=== PATIENT | female | born 1945 | race Caucasian/White ===

== ENCOUNTER → 2021-10-25 14:28 | Outpatient (CLI) | payer OTHER, SELFPAY ==
[2021-10-25 15:15] LABS: Appearance Urine UA CLEAR; Bilirubin Urine UA NEGATIVE (NEGATIVE); Color Urine UA YELLOW; Glucose Urine UA 2+ g/dL (Negative); Ketones Urine UA 1+ (NEGATIVE); Leukocyte Esterase Urine UA TRACE (NEGATIVE); Nitrite Urine UA POSITIVE (Negative); Occult Blood Urine UA NEGATIVE (Negative); Protein Urine UA NEGATIVE (Negative); Urobilinogen Urine UA 0.2 E.U./dL (0.2)
[2021-10-25 15:20] LABS: Amorphous Sediment Urine 1+; Bacteria Urine Many (>30); Culture Indicated Urine Specimen Cultured; RBC Urine 0-1/HPF (0-5/HPF); Squamous Epithelial Cell Urine 0-1 /HPF (0-5/HPF); WBC Urine 30-100/HPF (0-5/HPF); pH Urine UA 5.5 (4.5-8.0)
[2021-10-25 15:34] LABS: Creatinine Urine Random 37.4 mg/dL
[2021-10-25 15:41] LABS: Microalbumi Creatinin Ratio Ur 93.5 ug/mg CR (<30); Microalbumin Urine Random 3.5 mg/dL (0-1.6)
[2021-10-25 16:13] LABS: Add Manual Diff / Slide Review NO; Basophils Absolute Auto 100 /uL (0-100); Basophils Percent Auto 1.1 % (0-2); Eosinophils Absolute Auto 100 /uL (0-450); Eosinophils Percent Auto 1.1 % (2-4); Hematocrit 44.4 % (36-46); Lymphocytes Absolute Auto 1400 /uL (1100-4500); Lymphocytes Percent Auto 22.8 % (25-40); Mean Corpuscular HGB Conc 33.8 % (30-36); Mean Corpuscular Hemoglobin 29.7 PG (26-34); Mean Corpuscular Volume 87.9 fL (80-100); Monocytes Absolute Auto 500 /uL (0-900); Monocytes Percent Auto 7.4 % (3-14); Neutrophils Absolute Auto 4100 /uL (1500-7000); Neutrophils Percent Auto 67.6 % (50-75); Platelet Count 198 X10^3/uL (150-400); Red Blood Cell Count 5.05 X10^6/uL (4.0-5.2); Red Cell Distribution Width 14.4 % (11.6-14.8); White Blood Cell Count 6.1 X10^3/uL (4.5-11.0)
[2021-10-25 16:21] LABS: Hemoglobin A1C% w Est Avg Glu > 14.0 % (4.0-6.0)
[2021-10-25 16:44] LABS: Alanine Aminotransferase 49 IU/L (<35); Albumin 4.3 g/dL (3.5-5.0); Albumin Globulin Ratio 1.4 (1.0-2.8); Alkaline Phosphatase 151 U/L (38-126); Aspartate Aminotransferase 42 IU/L (14-36); BUN Creatinine Ratio 30.4 (6-22); Bilirubin Total 0.7 mg/dL (0.2-1.3); Blood Urea Nitrogen 21 mg/dL (7-17); Calcium 9.1 mg/dL (8.4-10.2); Carbon Dioxide 31 mmol/L (22-32); Chloride 92 mmol/L (98-107); Cholesterol 265 mg/dL (140-199); Estimated Glomerular Filt Rate > 60 mL/min (>60); Glucose 469 mg/dL (80-110); HDL Cholesterol 65 mg/dL (40-60); HEMOLYSIS < 15 (0-50); LDL Cholesterol Calculated 157 mg/dL (<100); Potassium 4.8 mmol/L (3.4-5.1); Sodium 132 mmol/L (137-145); Total Protein 7.3 g/dL (6.3-8.2); Triglycerides 217 mg/dL (35-150)
[2021-10-25 17:15] LABS: TSH w/ Reflex to FT4 0.76 uIU/mL (0.47-4.68)
[2021-10-28 16:44] LABS: Hep C Virus Ab w/Reflex Quant NEGATIVE s/c (NEGATIVE); Hepatitis B Surface Antigen NEGATIVE s/c (NEGATIVE)
== END ==
PROVIDERS: PCP Pediatrics; Referring Provider Pediatrics; Visit Provider Pediatrics
DX: E11.9 Type 2 diabetes mellitus without complications (principal); J44.9 Chronic obstructive pulmonary disease, unspecified; L43.9 Lichen planus, unspecified
CPT/HCPCS: 36415; 80053; 80061; 81001; 82043; 82570; 83036; 84443; 85025; 86803; 87077; 87086; 87186; 87340

== ENCOUNTER → 2021-11-20 15:28 | Outpatient (CLI) | payer OTHER, SELFPAY ==
--- NOTE | 2021-11-20 15:29 | DI.RAD.S_ITS ---
PROCEDURE: XR CHEST 2V INDICATIONS: SHORTNESS OF BREATH, COPD TECHNIQUE: 2 views of the chest were acquired. COMPARISON: None. FINDINGS: Surgical changes and devices: None. Lungs and pleura: Pulmonary venous congestion. Small right pleural effusion with subpulmonic component. No hernesto pulmonary edema. Mediastinum: Mediastinal contours are normal. Moderate cardiomegaly. Bones and chest wall: No suspicious bony abnormalities. Soft tissues appear unremarkable. IMPRESSION: Mild congestive heart failure exacerbation. Dictated by: Stuart Belle M.D. on 11/20/2021 at 17:06 Approved by: Stuart Belle M.D. on 11/20/2021 at 17:08
== END ==
PROVIDERS: PCP Pediatrics; Referring Provider Pediatrics; Visit Provider Pediatrics
DX: I50.9 Heart failure, unspecified (principal); J44.9 Chronic obstructive pulmonary disease, unspecified
CPT/HCPCS: 71046; 93010

== ENCOUNTER 2021-11-20 21:53 | Inpatient (IN) | payer OTHER, SELFPAY ==
[2021-11-20 21:55] VITALS: BP 190/72; PULSE 137; RESP 24; TEMP 36.6; O2SAT 98; BMI 36.7
[2021-11-20] MEDS: ALBUTEROL 2.5 MG/3 ML NEB (ADULT) INH (22:21)
[2021-11-20] MEDS: ALBUTEROL/IPRATROPIUM 3 ML AMPUL INH (22:21)
[2021-11-20 22:22] VITALS: O2SAT 85
[2021-11-20 22:25] VITALS: O2SAT 94
[2021-11-20 22:28] LABS: Alanine Aminotransferase 112 IU/L (<35); Albumin 4.5 g/dL (3.5-5.0); Albumin Globulin Ratio 1.4 (1.0-2.8); Alkaline Phosphatase 178 U/L (38-126); Aspartate Aminotransferase 137 IU/L (14-36); BUN Creatinine Ratio 23.8 (6-22); Blood Urea Nitrogen 19 mg/dL (7-17); Calcium 8.8 mg/dL (8.4-10.2); Carbon Dioxide 31 mmol/L (22-32); Chloride 94 mmol/L (98-107); Estimated Glomerular Filt Rate > 60 mL/min (>60); Globulin 3.3 g/dL (1.7-4.1); Glucose 417 mg/dL (80-110); HEMOLYSIS < 15 (0-50); Potassium 4.2 mmol/L (3.4-5.1); Sodium 134 mmol/L (137-145); Total Protein 7.8 g/dL (6.3-8.2)
[2021-11-20 22:29] LABS: Lactate (Lactic Acid) 3.6 mmol/L (0.7-2.1)
[2021-11-20 22:44] LABS: Add Manual Diff / Slide Review NO; Basophils Absolute Auto 100 /uL (0-100); Basophils Percent Auto 1.2 % (0-2); Eosinophils Absolute Auto 100 /uL (0-450); Eosinophils Percent Auto 1.5 % (2-4); Hematocrit 44.2 % (36-46); Hemoglobin 14.9 g/dL (12.0-16.0); Lymphocytes Absolute Auto 3800 /uL (1100-4500); Lymphocytes Percent Auto 39.3 % (25-40); Mean Corpuscular HGB Conc 33.7 % (30-36); Mean Corpuscular Hemoglobin 29.7 PG (26-34); Mean Corpuscular Volume 88.3 fL (80-100); Monocytes Absolute Auto 700 /uL (0-900); Monocytes Percent Auto 6.8 % (3-14); Neutrophils Absolute Auto 5000 /uL (1500-7000); Neutrophils Percent Auto 51.2 % (50-75); Platelet Count 288 X10^3/uL (150-400); Red Blood Cell Count 5.01 X10^6/uL (4.0-5.2); Red Cell Distribution Width 14.9 % (11.6-14.8); White Blood Cell Count 9.7 X10^3/uL (4.5-11.0)
[2021-11-20 22:46] LABS: Creatine Kinase 30 U/L (30-135)
[2021-11-20 22:51] VITALS: PULSE 114; RESP 32; O2SAT 93
[2021-11-20 22:59] LABS: Troponin I 0.042 ng/mL (0.01-0.034)
[2021-11-20 23:00] VITALS: BP 126/58; PULSE 113; RESP 38; O2SAT 93
[2021-11-20 23:30] VITALS: BP 122/87; PULSE 113; RESP 31; O2SAT 93
[2021-11-20 23:46] LABS: NT-proBNP (BNP-Adult 18+) 1630 pg/mL (<450)
[2021-11-21] VITALS (43 sets, daily range): BP systolic 108–160; BP diastolic 55–82; PULSE 58–116; RESP 16–36; TEMP 35.7–36.5; O2SAT 91–98; BMI 36.7
[2021-11-21 00:20] LABS: Reflexed Lactate in 2 Hours Y
--- NOTE | 2021-11-21 00:42 | ED_ITS ---
HPI - SOB/Dyspnea General Chief Complaint: Shortness of Breath/Dyspnea Stated Complaint: Difficulty breathing Time Seen by Provider: 11/20/21 22:31 Source: patient, family and EMS Mode of arrival: EMS Limitations: no limitations History of Present Illness HPI Narrative: Patient brought in by ambulance from home. Her friend is at bedside. Complains of shortness of breath and cough for the past 1 week. Patient is new to the [facility]. Moved here last month from [place]. Has history of COPD is on 2 L of nasal cannula as needed. She had a director transportation back in [place]. Was never on any nebulizer or inhaler. Never needed 1. Patient establish new primary care, Dr. Quevedo earlier this month. Patient had outpatient chest x-ray today for cough and feeling short of breath. No history of congestive heart failure. Patient states feels much better after breathing treatment by EMS as well as here. Denies any chest pain or leg or feet swelling. Related Data Home Medications Medication Instructions Recorded Confirmed metronidazole 500 mg tablet 500 mg PO BID 10/25/21 10/25/21 Previous Rx's Medication Instructions Recorded blood-glucose meter,continuous #1 ea 10/25/21 (Dexcom G6 [employer] Sales Representative misc) blood-glucose sensor (Dexcom G6 #3 ea 10/25/21 Sensor device) blood-glucose transmitter (Dexcom #1 ea 10/25/21 G6 Transmitter device) blood sugar diagnostic (Blood #100 ea 10/29/21 Glucose Test strips) blood-glucose meter #1 ea 10/29/21 lancets 25 gauge #100 ea 10/29/21 albuterol sulfate 90 mcg/actuation 2 puff inhalation Q4-6H PRN 11/11/21 aerosol inhaler (ProAir HFA) shortness of breath or wheezing #8.5 grams glipizide 10 mg tablet, extended 10 mg PO BID #180 tabs 11/11/21 release 24 hr metformin 850 mg tablet 850 mg PO TID #270 tabs 11/11/21 Allergies Allergy/AdvReac Type Severity Reaction Status Date / Time No Known Drug Allergies Allergy Unverified 10/25/21 13:43 Review of Systems Review of Systems Narrative: GENERAL: Denies chills, fatigue, malaise, fever, sweats. HEENT: Denies sinus pain, ear pain, sore throat RESPIRATORY: Positive for dyspnea, cough CARDIOVASCULAR: Denies chest pain, palpitations GASTROINTESTINAL: Denies nausea, vomiting, abdominal pain : Denies dysuria, frequency, hematuria MUSCULOSKELETAL: denies muscle or bony pain SKIN: Denies rash, skin lesions NEUROLOGIC: Denies weakness, numbness ROS Unobtainable: All systems reviewed & are unremarkable except as noted in HPI and below Patient History Medical History COPD (chronic obstructive pulmonary disease) Diabetes mellitus Lichen planus Social History Smoking Status: Former smoker Tobacco: How many years used: 60 quit status: has quit before alcohol intake: current (4 drinks every few months ) substance use type: does not use Smoking Status: Former smoker Exam Narrative Exam Narrative: GENERAL: in no distress, not toxic not dyspneic HEAD: Normocephalic. EYES: Pupils equal round No scleral icterus. ENT: Mucous membranes moist. NECK: Trachea midline. CARDIOVASCULAR: Regular rate and rhythm without murmurs RESPIRATORY: Diminished basilar lung sounds. Speaking full sentences. Patient has had breathing treatments prior to exam Breath sounds equal bilaterally. No wheezes, rales, or rhonchi. GASTROINTESTINAL: Abdomen soft, non-tender EXTREMITIES: No gross deformities. BACK: No flank tenderness. NEURO: AOx4. SKIN: Warm and dry PSYCH: Not anxious, is cooperative Initial Vital Signs Initial Vital Signs: Vital Signs Temperature 97.8 F 11/20/21 21:55 Pulse Rate 137 H 11/20/21 21:55 Respiratory Rate 24 11/20/21 21:55 Blood Pressure 190/72 H 11/20/21 21:55 Pulse Oximetry 98 11/20/21 21:55 Oxygen Delivery Method 11/20/21 21:55 Oxygen Flow Rate 2 11/20/21 21:55 Course Course Course Narrative: No new issues during course of stay Decision to Admit Date: 11/21/21 Decision to Admit time: 00:44 Orders Ordered: ED Orders 11/20/21 21:15 BNP [NT-proBNP (BNP-Adult 18+)] Stat Complete Blood Count AUTO DIFF Stat Comprehensive Metabolic Panel Stat Lactate (Lactic Acid) Stat Troponin & CK Cardiac Panel Stat 11/20/21 21:59 EKG-12 Lead Stat 11/20/21 22:11 RT Consult Eval and Treat Now 11/21/21 00:15 Trop I [Troponin I] Stat Acetaminophen (Acetaminophen 325 Mg Tablet) 650 mg PO Q6HR PRN PRN Reason: Fever/Mild Pain (1-3) Albuterol (Albuterol 2.5 Mg/3 Ml Neb (Adult)) 2.5 mg INH Q4H PRN PRN Reason: Shortness Of Breath Or Wheezing Albuterol/Ipratropium (Albuterol/Ipratropium 3 Ml Ampul) 3 ml INH [id number] PRN PRN Reason: Shortness Of Breath Or Wheezing Dextrose (Dextrose 50 % In Water 25 Gm/50 Ml Syringe) 25 gm IV PRN PRN PRN Reason: Hypoglycemia Enoxaparin Sodium (Enoxaparin 40 Mg/0.4 Ml Syringe) 40 mg SUBCUT DAILY ANNALISE Insulin Human Lispro (Insulin Lispro 100 Unit/Ml 3ml Vial) 0 unit SUBCUT ACHS ANNALISE; Protocol Metformin HCl (Metformin 850 Mg Tablet) 850 mg PO TID ANNALISE Non-Formulary Medication (Glipizide) 10 mg PO BID ANNALISE Prednisone (Prednisone 20 Mg Tablet) 40 mg PO DAILY ANNALISE Stop: 11/25/21 08:59 Discontinued Medications Albuterol (Albuterol 2.5 Mg/3 Ml Neb (Adult)) 2.5 mg INH NOW ONE Stop: 11/20/21 22:14 Last Admin: 11/20/21 22:21 Dose: 2.5 mg Documented By: TV Albuterol/Ipratropium (Albuterol/Ipratropium 3 Ml Ampul) 3 ml INH NOW ONE Stop: 11/20/21 22:13 Last Admin: 11/20/21 22:21 Dose: 3 ml Documented By: TIARRA Metformin HCl (Metformin Hcl 500 Mg Tablet) 500 mg PO BEDTIME ANNALISE Metformin HCl (Metformin Hcl 500 Mg Tablet) 500 mg PO 0800 ANNALISE Last Admin: 11/21/21 02:08 Dose: 500 mg Documented By: NR Methylprednisolone (Methylprednisolone 125 Mg/2 Ml Vial) 125 mg IV NOW ONE Stop: 11/21/21 00:13 Last Admin: 11/21/21 00:52 Dose: 125 mg Documented By: CANDIE Reevaluation(s) Reevaluation #1: Spoke with patient results. Agrees for admission if not improving. Time: 00:45 Reevaluation #2: Patient still requiring nasal cannula 2 L or 93% room air. Consultations Consultation #1: Spoke with hospitalistGraciela, will admit if not improving with treatment. Time: 00:45 Consultation #2: Spoke with hospitalistGraciela, will admit patient Time: 02:37 Vital Signs Vital signs: Vital Signs - 8 hr 11/20/21 21:55 11/20/21 22:22 11/20/21 22:25 Temperature 97.8 F Pulse Rate 137 H Respiratory Rate 24 Blood Pressure 190/72 H Pulse Oximetry 98 85 L 94 Oxygen Delivery Method Nasal Cannula Room Air Nasal Cannula Oxygen Flow Rate 2 0 2 11/20/21 22:51 11/20/21 23:00 11/20/21 23:00 Temperature Pulse Rate 114 H 113 H Respiratory Rate 32 H 38 H Blood Pressure 126/58 L Pulse Oximetry 93 93 Oxygen Delivery Method Oxygen Flow Rate 11/20/21 23:30 11/20/21 23:30 Temperature Pulse Rate 113 H Respiratory Rate 31 H Blood Pressure 122/87 Pulse Oximetry 93 Oxygen Delivery Method Oxygen Flow Rate MDM - SOB/Dyspnea Differential Diagnosis Differential diagnosis: Likely acute exacerbation of chronic obstructive airways disease, congestive heart failure, community acquired pneumonia and asthma with exacerbation Lab Data Result diagrams: 11/20/21 21:15 11/20/21 21:15 Labs: Lab Results 11/20/21 11/20/21 11/20/21 Range/Units 21:15 21:15 21:15 WBC 9.7 (4.5-11.0) X10^3/uL RBC 5.01 (4.0-5.2) X10^6/uL Hgb 14.9 (12.0-16.0) g/dL Hct 44.2 (36-46) % MCV 88.3 (80-100) fL MCH 29.7 (26-34) PG MCHC 33.7 (30-36) % RDW 14.9 H (11.6-14.8) % Plt Count 288 (150-400) X10^3/uL Neut % (Auto) 51.2 (50-75) % Lymph % (Auto) 39.3 (25-40) % [place] % (Auto) 6.8 (3-14) % Eos % (Auto) 1.5 L (2-4) % Baso % (Auto) 1.2 (0-2) % Neut # (Auto) 5000 (7037-4133) /uL Lymph # (Auto) 3800 (8929-2561) /uL [place] # (Auto) 700 (0-900) /uL Eos # (Auto) 100 (0-450) /uL Baso # (Auto) 100 (0-100) /uL Sodium 134 L (137-145) mmol/L Potassium 4.2 (3.4-5.1) mmol/L Chloride 94 L (98-107) mmol/L Carbon Dioxide 31 (22-32) mmol/L BUN 19 H (7-17) mg/dL Creatinine 0.80 (0.52-1.04) mg/dL Estimated GFR > 60 (>60) mL/min BUN/Creatinine Ratio 23.8 H (6-22) Glucose 417 H (80-110) mg/dL Lactate 3.6 H (0.7-2.1) mmol/L Calcium 8.8 (8.4-10.2) mg/dL Total Bilirubin 1.0 (0.2-1.3) mg/dL AST 137 H (14-36) IU/L ALT 112 H (<35) IU/L Alkaline Phosphatase 178 H (38-126) U/L Total Creatine Kinase (30-135) U/L CK-MB (CK-2) CK-MB (CK-2) Rel Index Troponin I (0.01-0.034) ng/mL NT-Pro-B Natriuret Pep (<450) pg/mL Total Protein 7.8 (6.3-8.2) g/dL Albumin 4.5 (3.5-5.0) g/dL Globulin 3.3 (1.7-4.1) g/dL Albumin/Globulin Ratio 1.4 (1.0-2.8) 11/20/21 11/20/21 11/21/21 Range/Units 21:15 21:15 00:15 WBC (4.5-11.0) X10^3/uL RBC (4.0-5.2) X10^6/uL Hgb (12.0-16.0) g/dL Hct (36-46) % MCV (80-100) fL MCH (26-34) PG MCHC (30-36) % RDW (11.6-14.8) % Plt Count (150-400) X10^3/uL Neut % (Auto) (50-75) % Lymph % (Auto) (25-40) % [place] % (Auto) (3-14) % Eos % (Auto) (2-4) % Baso % (Auto) (0-2) % Neut # (Auto) (1799-2002) /uL Lymph # (Auto) (6939-5802) /uL [place] # (Auto) (0-900) /uL Eos # (Auto) (0-450) /uL Baso # (Auto) (0-100) /uL Sodium (137-145) mmol/L Potassium (3.4-5.1) mmol/L Chloride (98-107) mmol/L Carbon Dioxide (22-32) mmol/L BUN (7-17) mg/dL Creatinine (0.52-1.04) mg/dL Estimated GFR (>60) mL/min BUN/Creatinine Ratio (6-22) Glucose (80-110) mg/dL Lactate (0.7-2.1) mmol/L Calcium (8.4-10.2) mg/dL Total Bilirubin (0.2-1.3) mg/dL AST (14-36) IU/L ALT (<35) IU/L Alkaline Phosphatase (38-126) U/L Total Creatine Kinase 30 (30-135) U/L CK-MB (CK-2) TNP CK-MB (CK-2) Rel Index TNP Troponin I 0.042 H 0.048 H (0.01-0.034) ng/mL NT-Pro-B Natriuret Pep 1630 H (<450) pg/mL Total Protein (6.3-8.2) g/dL Albumin (3.5-5.0) g/dL Globulin (1.7-4.1) g/dL Albumin/Globulin Ratio (1.0-2.8) 11/21/21 Range/Units 00:28 WBC (4.5-11.0) X10^3/uL RBC (4.0-5.2) X10^6/uL Hgb (12.0-16.0) g/dL Hct (36-46) % MCV (80-100) fL MCH (26-34) PG MCHC (30-36) % RDW (11.6-14.8) % Plt Count (150-400) X10^3/uL Neut % (Auto) (50-75) % Lymph % (Auto) (25-40) % [place] % (Auto) (3-14) % Eos % (Auto) (2-4) % Baso % (Auto) (0-2) % Neut # (Auto) (6656-0335) /uL Lymph # (Auto) (8767-2711) /uL [place] # (Auto) (0-900) /uL Eos # (Auto) (0-450) /uL Baso # (Auto) (0-100) /uL Sodium (137-145) mmol/L Potassium (3.4-5.1) mmol/L Chloride (98-107) mmol/L Carbon Dioxide (22-32) mmol/L BUN (7-17) mg/dL Creatinine (0.52-1.04) mg/dL Estimated GFR (>60) mL/min BUN/Creatinine Ratio (6-22) Glucose (80-110) mg/dL Lactate 1.5 (0.7-2.1) mmol/L Calcium (8.4-10.2) mg/dL Total Bilirubin (0.2-1.3) mg/dL AST (14-36) IU/L ALT (<35) IU/L Alkaline Phosphatase (38-126) U/L Total Creatine Kinase (30-135) U/L CK-MB (CK-2) CK-MB (CK-2) Rel Index Troponin I (0.01-0.034) ng/mL NT-Pro-B Natriuret Pep (<450) pg/mL Total Protein (6.3-8.2) g/dL Albumin (3.5-5.0) g/dL Globulin (1.7-4.1) g/dL Albumin/Globulin Ratio (1.0-2.8) Point of Care Testing Glucose POC 400 Imaging Data Chest x-ray: Radiologist's Impression: Mild congestive heart failure exacerbation MDM Narrative Medical decision making narrative: Appropriate for admission as patient is requiring continues 2 L nasal cannula. Will need continued breathing treatments and hyperglycemia controlled. Discharge Plan Departure Patient Disposition: Admitted as Observation Clinical Impression: Acute exacerbation of chronic obstructive airways disease, Diabetes mellitus Admit Date/Time: 11/21/21 02:35 Admit Provider: Graciela Marie
[2021-11-21 00:49] LABS: Lactate 2HR (Lactic Acid Rflx) 1.5 mmol/L (0.7-2.1)
[2021-11-21 00:52] LABS: Troponin I 0.048 ng/mL (0.01-0.034)
[2021-11-21] MEDS: methylPREDNISolone 125 MG/2 ML VIAL IV (00:52)
[2021-11-21] MEDS: METFORMIN HCL 500 MG TABLET PO (02:08)
--- NOTE | 2021-11-21 02:58 | DI.ECHO.S_ITS ---
[facility] +---------+ [facility] +---------+ : : [address] [place] : : : : [id number] : : : : Phone: [phone] Echocardiogram Report + + :Name: ALVA HAGEN Study Date: 11/22/2021 Height: 59 in : :[facility] ReadingLocation: Weight: 182 lb : : Gender: Female BSA: 1.8 m2 : :: 1945 Age: 76 yrs BP: 140/75 mmHg: :Reason For Study: Elevated Troponin : :Ordering Physician: BRIGITTE, : :JAMMIE Performed By: Erick Holbrook : :Referring: JAMMIE BRIGGS : + + Interpretation Summary The ejection fraction is estimated to be 20-25%. There is severe global hypokinesis of the left ventricle. Diastolic function could not be accurately assessed due to unobtainable data. The right ventricle is normal in size and function. There is moderate mitral regurgitation. There is trace aortic regurgitation. Unable to estimate PASP. Result discussed with Dr. Valero. Procedure: A two-dimensional transthoracic echocardiogram with color flow and Doppler was performed. The study quality was technically difficult. There is no prior echocardiogram noted for this patient. Pt. sitting up during exam. No IV access for definity contrast. Left Ventricle: The left ventricle is not well visualized. The left ventricle is normal in size and wall thickness. Left ventricular systolic function is severely reduced. The ejection fraction is estimated to be 20-25%. There is severe global hypokinesis of the left ventricle. Diastolic function could not be accurately assessed due to unobtainable data. Right Ventricle: The right ventricle is normal in size and function. Atria: The left atrium is moderately dilated. Right atrial size is normal. Mitral Valve: There is mild mitral annular calcification. There is moderate mitral regurgitation. Aortic Valve: The aortic valve is moderately calcified. The noncoronary cusp appears nearly fixed. There is no hemodynamically significant valvular aortic stenosis. There is trace aortic regurgitation. Tricuspid Valve: The tricuspid valve is normal in structure and function. There is trace tricuspid regurgitation. Pulmonic Valve: The pulmonic valve is normal in structure and function. There is mild pulmonic regurgitation. Great Vessels: The aortic root is normal size. The dimensions of the ascending aorta are normal. The inferior vena cava was not visualized. Pericardium/ Pleura There is no pericardial effusion. There is no pleural effusion. MMode/2D Measurements & Calculations LVIDd: 5.3 cm LVOT diam: 1.8 cm LVIDs: 4.7 cm Ao root diam: 2.5 cm FS: 12.4 % asc Aorta Diam: 2.8 cm IVSd: 1.1 cm LVPWd: 1.0 cm LV [place]. diameter/BSA (cm/m^2): 3.0 LV sys. diameter/BSA (cm/m^2): 2.6 LA A2 area: 21.4 cm2 RA long axis: 3.8 cm LA A4 area: 25.2 cm2 RA area: 12.6 cm2 LA length (vol): 5.9 cm RA vol: 36.0 ml LA vol: 77.9 ml RA : 20.3 ml/m2 LA vol index: 44.0 ml/m2 TAPSE: 1.5 cm Doppler Measurements & Calculations Ao V2 max: 187.6 cm/sec LVOT Max Jonathan: 91.0 cm/sec Ao V2 mean: 139.6 cm/sec LV V1 max P.3 mmHg Ao max P.1 mmHg LV V1 VTI: 15.0 cm Ao mean P.5 mmHg KAUSHAL(I,D): 1.3 cm2 Ao V2 VTI: 31.3 cm KAUSHAL(V,D): 1.3 cm2 sev ratio: 0.48 KAUSHAL indexed to BSA (cm^2/m^2): 0.72 TR max jonathan: 313.4 cm/sec MR VTI: 128.8 cm TR max P.3 mmHg SV(LVOT): 39.8 ml Reading Physician:11:22 AM
[2021-11-21] MEDS: ALBUTEROL/IPRATROPIUM 3 ML AMPUL INH ×2 (05:49→09:41)
[2021-11-21 07:02] LABS: Alanine Aminotransferase 114 IU/L (<35); Albumin 4.1 g/dL (3.5-5.0); Albumin Globulin Ratio 1.5 (1.0-2.8); Alkaline Phosphatase 118 U/L (38-126); Aspartate Aminotransferase 79 IU/L (14-36); BUN Creatinine Ratio 28.3 (6-22); Bilirubin Total 0.9 mg/dL (0.2-1.3); Blood Urea Nitrogen 15 mg/dL (7-17); Calcium 8.6 mg/dL (8.4-10.2); Carbon Dioxide 28 mmol/L (22-32); Chloride 97 mmol/L (98-107); Cholesterol 217 mg/dL (140-199); Estimated Glomerular Filt Rate > 60 mL/min (>60); Globulin 2.8 g/dL (1.7-4.1); Glucose 440 mg/dL (80-110); HDL Cholesterol 65 mg/dL (40-60); HEMOLYSIS < 15 (0-50); LDL Cholesterol Calculated 132 mg/dL (<100); Magnesium 1.6 mg/dL (1.6-2.3); Potassium 4.6 mmol/L (3.4-5.1); Sodium 133 mmol/L (137-145); Total Protein 6.9 g/dL (6.3-8.2); Triglycerides 101 mg/dL (35-150)
[2021-11-21 07:29] LABS: COVID19 -Nasal RAPID Negative (Negative)
[2021-11-21 07:30] LABS: Hemoglobin A1C% w Est Avg Glu 12.9 % (4.0-6.0)
[2021-11-21] MEDS: INSULIN LISPRO 100 UNIT/ML 3ML VIAL SUBCUT ×4 (08:20→21:30)
[2021-11-21] MEDS: ENOXAPARIN 40 MG/0.4 ML SYRINGE SUBCUT (08:22)
[2021-11-21] MEDS: predniSONE 20 MG TABLET 40 MG PO (08:22)
[2021-11-21] MEDS: METFORMIN 850 MG TABLET PO ×2 (09:26→16:27)
[2021-11-21] MEDS: FUROSEMIDE 40 MG/4 ML VIAL IV (12:02)
[2021-11-21] MEDS: AZITHROMYCIN 500 MG in DEXTROSE 5% IN WATER 250 ML 250 MG IV (12:35)
[2021-11-21 13:10] LABS: Appearance Urine UA CLEAR; Bilirubin Urine UA NEGATIVE (NEGATIVE); Color Urine UA YELLOW; Glucose Urine UA 3+ g/dL (Negative); Ketones Urine UA TRACE (NEGATIVE); Leukocyte Esterase Urine UA NEGATIVE (NEGATIVE); Nitrite Urine UA NEGATIVE (Negative); Occult Blood Urine UA NEGATIVE (Negative); Protein Urine UA NEGATIVE (Negative); Specific Gravity Urine UA <=1.005 (1.000-1.035); Urobilinogen Urine UA 0.2 E.U./dL (0.2)
--- NOTE | 2021-11-21 13:23 | PC.NURSE ---
Day shift: On AC unit at approx 1320 from ED. A&Ox4. IV fluids infusing from ED. Denies any pain, chest pain, or SOB. She stated I feel better after all the stuff they gave me in the ED. Oriented to room and call light. HR 114. BP WNL. 95% 2L NC. Call light in reach. Agrees to not get OOB w/o help from staff. Bed alarm is on and call light in reach.
[2021-11-21 13:30] LABS: RBC Urine 0-1/HPF (0-5/HPF)
[2021-11-21 13:31] LABS: Bacteria Urine Few (2-10); Culture Indicated Urine Cult Not Indicated; Squamous Epithelial Cell Urine None Seen (0-5/HPF); WBC Urine 0-1/HPF (0-5/HPF)
[2021-11-21] MEDS: INSULIN GLARGINE 100 UNIT/ML 3ML PEN 10 UNIT SUBCUT (14:24)
--- NOTE | 2021-11-21 14:24 | P.HP_ITS ---
History of Present Illness History of Present Illness Date Patient Seen: 11/21/21 Time Patient Seen: 11:00 Chief complaint: Difficulty breathing Narrative: Ms. Colón is a 76W with PMH COPD on home O2 at night, DM who presents to the hospital with shortness of breath. She has just moved from [place], and she has had less ability to focus on her health due to family issues. She has noted over the past few days lower extremity swelling. Within the last day she has noted she has developed shortness of breath. No chest pain. No fevers/chills. She has a nonproductive cough. She does not think she has been monitoring her blood sugars very well. She has been intubated years ago for a COPD flare. In the ED workup was done,vitals notable for no fever, she has tachycardia and tachypnea, blood pressure was elevated. She had already been placed on oxygen and sats were 98% on 2L. Labs notable for WBC 9.7, hgb 14.9. Na 133, creatinine 0.53. A1c 12.9. Trop 0.042->0.048->0.050. BNP 1630. UA with no leuk esterase, no WBC, no nitrates. Initial lactate 3.6->1.5. Chest xray shows pulmonary venous congestion and small right pleural effusion. She was ordered for nebs and steroids and admitted for further treatment. Patient History Medical History COPD (chronic obstructive pulmonary disease) Diabetes mellitus Lichen planus Family & Social History Social History: household members none Prior Living Arrangements House Safety & Behavioral: Feels Safe in Current Yes Environment Been Physically Hurt or No Threatened By a Person Tobacco & Substance use: Tobacco type cigarettes Smoking Status Former smoker alcohol intake former alcohol intake frequency holiday/special occasion Substance Use Type does not use Meds Home Medications and Allergies Home Medications Medication Instructions Recorded Confirmed Type blood-glucose meter,continuous #1 ea 10/25/21 11/21/21 Rx (Dexcom G6 Automatic Vulcanizing Lead Operator misc) blood-glucose sensor (Dexcom G6 #3 ea 10/25/21 11/21/21 Rx Sensor device) blood-glucose transmitter (Dexcom #1 ea 10/25/21 11/21/21 Rx G6 Transmitter device) metronidazole 500 mg tablet 500 mg PO BID 10/25/21 11/21/21 History blood sugar diagnostic (Blood #100 ea 10/29/21 11/21/21 Rx Glucose Test strips) blood-glucose meter #1 ea 10/29/21 11/21/21 Rx lancets 25 gauge #100 ea 10/29/21 11/21/21 Rx albuterol sulfate 90 mcg/actuation 2 puff inhalation Q4-6H PRN 11/11/21 11/21/21 Rx aerosol inhaler (ProAir HFA) shortness of breath or wheezing #8.5 grams glipizide 10 mg tablet, extended 10 mg PO BID #180 tabs 11/11/21 11/21/21 Rx release 24 hr metformin 850 mg tablet 850 mg PO TID #270 tabs 11/11/21 11/21/21 Rx Allergies Allergy/AdvReac Type Severity Reaction Status Date / Time No Known Drug Allergies Allergy Unverified 10/25/21 13:43 Review of Systems Review of Systems Narrative: GEN: mild respiratory distress HEENT: moist mucous membranes, PERRL NECK: trachea midline, no JVD PULM: poor air movement bilaterally CV: tachycardia, no murmurs ABD: soft, nontender, nondistended EXT: trace edema NEURO: awake, alert, oriented, no focal deficits Exam Vital Signs (past 8 hours): - 11/21/21 06:30 11/21/21 06:30 11/21/21 07:00 Temperature Pulse Rate 102 H 105 H Respiratory Rate Blood Pressure 118/71 Pulse Oximetry 94 94 Oxygen Delivery Method Nasal Cannula Oxygen Flow Rate 2 11/21/21 07:01 11/21/21 07:01 11/21/21 09:41 Temperature Pulse Rate 105 H 108 H Respiratory Rate 24 Blood Pressure 137/82 Pulse Oximetry 94 97 Oxygen Delivery Method Nasal Cannula Oxygen Flow Rate 1 11/21/21 07:30 11/21/21 07:31 11/21/21 07:31 Temperature Pulse Rate 102 H 105 H Respiratory Rate Blood Pressure 115/55 L Pulse Oximetry 94 95 Oxygen Delivery Method Nasal Cannula Oxygen Flow Rate 2 11/21/21 08:00 11/21/21 08:30 11/21/21 09:00 Temperature Pulse Rate 109 H 109 H 111 H Respiratory Rate 18 Blood Pressure Pulse Oximetry 95 94 94 Oxygen Delivery Method Nasal Cannula Oxygen Flow Rate 2 11/21/21 09:30 11/21/21 10:00 11/21/21 10:13 Temperature Pulse Rate 109 H 104 H Respiratory Rate 18 Blood Pressure 139/76 Pulse Oximetry 96 96 Oxygen Delivery Method Nasal Cannula Oxygen Flow Rate 2 11/21/21 10:13 11/21/21 10:30 11/21/21 11:00 Temperature Pulse Rate 116 H 108 H 104 H Respiratory Rate 22 22 22 Blood Pressure Pulse Oximetry 97 97 98 Oxygen Delivery Method Nasal Cannula Nasal Cannula Oxygen Flow Rate 2 2 11/21/21 11:30 11/21/21 12:00 11/21/21 12:30 Temperature Pulse Rate 106 H 105 H 108 H Respiratory Rate 16 Blood Pressure Pulse Oximetry 98 96 96 Oxygen Delivery Method Oxygen Flow Rate 11/21/21 13:00 11/21/21 13:44 11/21/21 14:00 Temperature 97.7 F Pulse Rate 105 H 113 H Respiratory Rate 18 Blood Pressure 121/70 Pulse Oximetry 97 95 Oxygen Delivery Method Nasal Cannula Nasal Cannula Oxygen Flow Rate 2 2 Oxygen Delivery Method Nasal Cannula Oxygen Flow Rate 2 Objective Labs Result Diagrams: 11/20/21 21:15 11/21/21 06:12 Labs: Laboratory Results - last 24 hr 11/20/21 11/20/21 11/20/21 21:15 21:15 21:15 WBC 9.7 RBC 5.01 Hgb 14.9 Hct 44.2 MCV 88.3 MCH 29.7 MCHC 33.7 RDW 14.9 H Plt Count 288 Neut % (Auto) 51.2 Lymph % (Auto) 39.3 Traill % (Auto) 6.8 Eos % (Auto) 1.5 L Baso % (Auto) 1.2 Neut # (Auto) 5000 Lymph # (Auto) 3800 Traill # (Auto) 700 Eos # (Auto) 100 Baso # (Auto) 100 Sodium 134 L Potassium 4.2 Chloride 94 L Carbon Dioxide 31 BUN 19 H Creatinine 0.80 Estimated GFR > 60 BUN/Creatinine Ratio 23.8 H Glucose 417 H Hemoglobin A1c Lactate 3.6 H Calcium 8.8 Magnesium Total Bilirubin 1.0 AST 137 H ALT 112 H Alkaline Phosphatase 178 H Total Creatine Kinase CK-MB (CK-2) CK-MB (CK-2) Rel Index Troponin I NT-Pro-B Natriuret Pep Total Protein 7.8 Albumin 4.5 Globulin 3.3 Albumin/Globulin Ratio 1.4 Triglycerides Cholesterol LDL Cholesterol, Calc HDL Cholesterol Urine Color Urine Appearance Urine pH Ur Specific [place] Urine Protein Urine Glucose (UA) Urine Ketones Urine Occult Blood Urine Nitrate Urine Bilirubin Urine Urobilinogen Ur Leukocyte Esterase Urine RBC Urine WBC Ur Squamous Epith Cells Urine Bacteria Ur Culture Indicated? SARS-CoV-2 (PCR) 11/20/21 11/20/21 11/21/21 21:15 21:15 00:15 WBC RBC Hgb Hct MCV MCH MCHC RDW Plt Count Neut % (Auto) Lymph % (Auto) Traill % (Auto) Eos % (Auto) Baso % (Auto) Neut # (Auto) Lymph # (Auto) Traill # (Auto) Eos # (Auto) Baso # (Auto) Sodium Potassium Chloride Carbon Dioxide BUN Creatinine Estimated GFR BUN/Creatinine Ratio Glucose Hemoglobin A1c Lactate Calcium Magnesium Total Bilirubin AST ALT Alkaline Phosphatase Total Creatine Kinase 30 CK-MB (CK-2) TNP CK-MB (CK-2) Rel Index TNP Troponin I 0.042 H 0.048 H NT-Pro-B Natriuret Pep 1630 H Total Protein Albumin Globulin Albumin/Globulin Ratio Triglycerides Cholesterol LDL Cholesterol, Calc HDL Cholesterol Urine Color Urine Appearance Urine pH Ur Specific [place] Urine Protein Urine Glucose (UA) Urine Ketones Urine Occult Blood Urine Nitrate Urine Bilirubin Urine Urobilinogen Ur Leukocyte Esterase Urine RBC Urine WBC Ur Squamous Epith Cells Urine Bacteria Ur Culture Indicated? SARS-CoV-2 (PCR) 11/21/21 11/21/21 11/21/21 00:28 06:12 06:12 WBC RBC Hgb Hct MCV MCH MCHC RDW Plt Count Neut % (Auto) Lymph % (Auto) Traill % (Auto) Eos % (Auto) Baso % (Auto) Neut # (Auto) Lymph # (Auto) Traill # (Auto) Eos # (Auto) Baso # (Auto) Sodium 133 L Potassium 4.6 Chloride 97 L Carbon Dioxide 28 BUN 15 Creatinine 0.53 Estimated GFR > 60 BUN/Creatinine Ratio 28.3 H Glucose 440 H Hemoglobin A1c 12.9 H Lactate 1.5 Calcium 8.6 Magnesium 1.6 Total Bilirubin 0.9 AST 79 H ALT 114 H Alkaline Phosphatase 118 D Total Creatine Kinase CK-MB (CK-2) CK-MB (CK-2) Rel Index Troponin I 0.050 H NT-Pro-B Natriuret Pep Total Protein 6.9 Albumin 4.1 Globulin 2.8 Albumin/Globulin Ratio 1.5 Triglycerides 101 Cholesterol 217 H LDL Cholesterol, Calc 132 H HDL Cholesterol 65 H Urine Color Urine Appearance Urine pH Ur Specific [place] Urine Protein Urine Glucose (UA) Urine Ketones Urine Occult Blood Urine Nitrate Urine Bilirubin Urine Urobilinogen Ur Leukocyte Esterase Urine RBC Urine WBC Ur Squamous Epith Cells Urine Bacteria Ur Culture Indicated? SARS-CoV-2 (PCR) 11/21/21 11/21/21 07:00 12:42 WBC RBC Hgb Hct MCV MCH MCHC RDW Plt Count Neut % (Auto) Lymph % (Auto) [place] % (Auto) Eos % (Auto) Baso % (Auto) Neut # (Auto) Lymph # (Auto) Traill # (Auto) Eos # (Auto) Baso # (Auto) Sodium Potassium Chloride Carbon Dioxide BUN Creatinine Estimated GFR BUN/Creatinine Ratio Glucose Hemoglobin A1c Lactate Calcium Magnesium Total Bilirubin AST ALT Alkaline Phosphatase Total Creatine Kinase CK-MB (CK-2) CK-MB (CK-2) Rel Index Troponin I NT-Pro-B Natriuret Pep Total Protein Albumin Globulin Albumin/Globulin Ratio Triglycerides Cholesterol LDL Cholesterol, Calc HDL Cholesterol Urine Color Yellow Urine Appearance Clear Urine pH 5.0 Ur Specific [place] <=1.005 Urine Protein Negative Urine Glucose (UA) 3+ H Urine Ketones Trace H Urine Occult Blood Negative Urine Nitrate Negative Urine Bilirubin Negative Urine Urobilinogen 0.2 Ur Leukocyte Esterase Negative Urine RBC 0-1/hpf Urine WBC 0-1/hpf Ur Squamous Epith Cells None seen Urine Bacteria Few (2-10) H Ur Culture Indicated? Cult not indicated SARS-CoV-2 (PCR) Negative Assessment & Plan Assessment & Plan narrative: Ms. Colón is a 76W with PMH COPD on o2, DM, who presents to the hospital with shortness of breath. 1. Acute on chronic respiratory failure secondary to COPD exacerbation -patient states consistent with prior COPD exacerbation -ordered for nebs and steroids -start azithromycin as well -wean off oxygen as able 2. Possible new CHF diagnosis -noted to have fluid in the lungs, elevated bnp, and mild lower extremity edema -no known history of chf -has elevated troponin consistent with cardiac demand ischemia -ordered for echo -check d-dimer, if elevated order a CTA to rule out PE 3. Type 2 DM, not in insulin, hyperglycemia -initial blood sugar in 400s, a1c >12 -start on lantus 10u, and insulin sliding scale -continue metformin, glipizide Time Spent With Patient Critical Care time: I spent a total of [] minutes of critical care time on this patient's care today; this time is exclusive of procedural time. Quality MIPS - Admit I confirm the patient?s Advance Care Plan is present, Code status is documented, Surrogate decision maker is in patient?s record [If Yes, STOP here]: Yes
[2021-11-21 15:16] LABS: D Dimer 380 ng/mL (<230)
[2021-11-21] MEDS: ASPIRIN EC 81 MG TABLET PO (15:22)
--- NOTE | 2021-11-21 15:25 | PC.NURSE ---
Day shift: Pt OOB with DIETETICS DIRECTOR Jovanny and O2 NC removed and Pt became light headed and SOB. Back in bed and 95% 2L NC. Extension tubing added at this time. Plan is for BSC going forward.
[2021-11-21] MEDS: ALBUTEROL 2.5 MG/3 ML NEB (ADULT) INH (15:54)
--- NOTE | 2021-11-21 16:57 | DIET.CONS2 ---
Dietary Inpatient Consultation Note Admission Date: 11/21/2021 02:35 RD to consult c pt regarding DM2 A1c >12 Thursday morning. Pt recently moved from [place], [facility] to establish care with DM educator as OP. Diet: 11/21/21 Breakfast Carbohydrate Consistent Diet Diet Modifications: Carbohydrate level: Medium (3 CHO) Bedtime snack: Yes Nutrition Percent Meal Consumed 50% 11/21/21 14:13 Electronically Signed by: Spring Stanton 11/21/21 16:57 Clinical Dietitian [address] [address]
[2021-11-21] MEDS: ACETAMINOPHEN 325 MG TABLET 650 MG PO (19:39)
[2021-11-21] MEDS: ATORVASTATIN 20 MG TABLET 40 MG PO (21:29)
[2021-11-21] MEDS: guaiFENesin ER 600 MG TAB PO (21:31)
[2021-11-22] VITALS (9 sets, daily range): BP systolic 110–149; BP diastolic 65–80; PULSE 85–120; RESP 19–22; TEMP 36–36.8; O2SAT 92–96; BMI 37.6
[2021-11-22] MEDS: ALBUTEROL 2.5 MG/3 ML NEB (ADULT) INH (08:02)
--- NOTE | 2021-11-22 09:24 | CM.DANOTE ---
DCP: Case received, EMR reviewed and met with patient. Introduced self and role. Was able to obtain information regarding patient's baseline activity status prior to hospitalization. DCP assessment completed with information currently available. Patient is a 76 year old female who admitted yesterday morning to the care of the hospitalist team. PCP: Dr. Quevedo. Payer: confirmed: [employer]. Patient came to the hospital via ambulance secondary to having increased shortness of breath. According to notes, patient recently moved here from [place]. Patient was diagnosed with acute on chronic respiratory failure secondary to COPD exacerbation. Met with patient in her room. She was sitting up in her chair, oxygen in place. Confirmed with patient that she resides at [facility], here in [place]. She has oxygen, [employer], at home. She uses a walker at the facility. Her friend, Jessica Kenny, is her main contact, and lives near by. Patient stated, her last April, and wanted her to move out here so she could be by her friend. Prior to her living in [place], she lived in [place]. Confirmed that she was recently established with Dr. Quevedo at [facility]. She does not drive. P: DCP to continue to follow. Patient should be able to go home when she is deemed medically stable. Stella Bailey RN/Buffing Wheel Inspector Discharge Planning/Care Management CM Discharge Assessment Start: 11/22/21 09:22 Freq: Status: Active Protocol: Document 11/22/21 09:22 (Rec: 11/22/21 09:24 [id number]) Discharge Planning Assessment Assigned Care Transitions Manager Stella Bailey RN/Buffing Wheel Inspector Advance Directives? No History Provided By Patient,Medical Record Prior Living Arrangements House Household Members none Type of transporation used prior to Relies on Others admit Independent with ADL's Yes Needs Assistance With Meal Prep,Home Chores / Shopping Caregiver for Another No Community Services used prior to Oxygen Therapy admission: Comment Patient has [employer] DME Already Rented / Owned FWW / Walker,Oxygen Barriers to Discharge No Discharge Plan Assisted Living Facility Transportation Arrangement Friend Referrals Initiated None needed Whiteboard Updated in Patient Room with Yes name and ext. # of Care Transitions Manager Review Status In Process Next Review Type Continued Stay Review
[2021-11-22] MEDS: INSULIN LISPRO 100 UNIT/ML 3ML VIAL SUBCUT ×4 (09:37→20:27)
[2021-11-22] MEDS: ASPIRIN EC 81 MG TABLET PO (09:38)
[2021-11-22] MEDS: METFORMIN 850 MG TABLET PO ×3 (09:38→17:24)
[2021-11-22] MEDS: ENOXAPARIN 40 MG/0.4 ML SYRINGE SUBCUT (09:38)
[2021-11-22] MEDS: predniSONE 20 MG TABLET 40 MG PO (09:38)
[2021-11-22] MEDS: guaiFENesin ER 600 MG TAB PO ×2 (09:38→20:22)
--- NOTE | 2021-11-22 11:07 | DIET.CONS ---
Dietary Consultation Note Admission Date: 11/21/2021 02:35 Assessment: 76y F admitted for SOB secondary to CHF and COPD exacerbation referred to nutrition for high A1c (12.9). [facility] [place], in April 2021. Pt reports she has not prioritized her own health recently and dislikes checking her blood sugar because it hurts her fingers. Pt would like a Dexcom CGM but has had problems in past obtaining one. Pt states she is never below BG 200 when she checks and has no idea what to do if she is >300. Pt currently taking glipizide 10mg bid and Metformin 850mg tid, no insulin. Pt desires referral to OP DMSE for better BG management and would like her friend, Jessica to be in the visits to reinforce information. Per nursing pt being given high ssi this hospitalization, morning BG 209. Ht: 149.86 cm Wt: 84.5 kg BMI: 36.7 Last BM: 11/21/21 (11/21/21 13:21) MNA: 12 Nelson Score: 20 Diet: 11/21/21 Breakfast Carbohydrate Consistent Diet Diet Modifications: Carbohydrate level: Medium (3 CHO) Bedtime snack: Yes Nutrition Percent Meal Consumed 100% 11/22/21 10:16 Percent Meal Consumed 75% 11/21/21 18:00 Percent Meal Consumed 50% 11/21/21 14:13 Labs: RBC 5.01 X10^6/uL (4.0-5.2) 11/20/21 21:15 Hgb 14.9 g/dL (12.0-16.0) 11/20/21 21:15 Hct 44.2 % (36-46) 11/20/21 21:15 Creatinine 0.53 mg/dL (0.52-1.04) 11/21/21 06:12 Hemoglobin A1c 12.9 % (4.0-6.0) H 11/21/21 06:12 Lactate 1.5 mmol/L (0.7-2.1) 11/21/21 00:28 NT-Pro-B Natriuret Pep 1630 pg/mL (<450) H 11/20/21 21:15 Nutrition Diagnosis: altered nutrition related laboratory values (A1c) r/t endocrine dysfunction and suboptimal medication management of DM2 aeb A1c 12.9, pt dislikes finger pokes, pt rarely sees BG below 200 and states she is unsure what to do if BG >300. Interventions: 1. Obtained referral from PCP for OP DSME at per pt request, underwriting support specialist with call pt to make first appointment. 2. Recc pt be started on insulin therapy secondary to high A1c. Electronically Signed by: Spring Stanton 11/22/21 11:07 [facility] [address]
[2021-11-22] MEDS: AZITHROMYCIN 500 MG in DEXTROSE 5% IN WATER 250 ML 250 MG IV (11:48)
[2021-11-22] MEDS: FUROSEMIDE 40 MG/4 ML VIAL IV ×2 (11:51→20:23)
--- NOTE | 2021-11-22 12:54 | DI.CT.S_ITS ---
PROCEDURE: CT ANGIO CHEST PE PROTOCOL INDICATIONS: sob TECHNIQUE: After the administration of intravenous contrast, 2 mm thick sections acquired from the pulmonary apices to the posterior costophrenic angles. 3-dimensional maximum intensity projection (MIP) coronal and sagittal reformats were then acquired through the thorax. For radiation dose reduction, the following was used: automated exposure control, adjustment of mA and/or kV according to patient size. COMPARISON: None. FINDINGS: Image quality: Excellent. Pulmonary arteries: Pulmonary arteries are normal in size, and demonstrate no intraluminal filling defects to suggest central pulmonary embolism. Lungs and pleura: There is a small right and a trace left low-density pleural effusion. Compressive atelectasis is present in the dependent lung bases bilaterally. There is diffuse bilateral interlobular septal thickening and diffuse ground-glass radiopacities consistent with pulmonary edema. No focal airspace consolidation. A 6 mm pulmonary nodule is present along the lateral aspect of the left lower lobe (series 5/image 155). No pneumothorax. Mediastinum: Heart size is enlarged, without pericardial effusion. No mediastinal or hilar adenopathy. Thoracic aorta is normal in caliber and enhancement. Dense atheromatous calcifications are present within the aortic arch. Esophagus is normal in caliber, without hiatal hernia. Bones and chest wall: No suspicious bony lesions. Ribs and thoracic spine appear intact throughout. Thyroid gland is unremarkable. No axillary or supraclavicular adenopathy. Abdomen: Visualized upper abdominal solid organs appear normal in the early arterial phase of enhancement. IMPRESSION: 1. No acute pulmonary embolus. 2. Extensive aortic atherosclerosis. 3. Bilateral pleural effusions and pulmonary edema in the setting of cardiomegaly suggesting congestive failure. Dictated by: Tasha Mcgovern M.D. on 11/22/2021 at 14:49 Approved by: Tasha Mcgovern M.D. on 11/22/2021 at 14:55
--- NOTE | 2021-11-22 13:10 | PC.NURSE ---
Day shift: Pt off unit for imaging at approx 1310.
--- NOTE | 2021-11-22 13:21 | PC.NURSE ---
Day shift: Pt back in room at approx 1325. Tele and IV antibiotics restarted.
--- NOTE | 2021-11-22 13:40 | PC.NURSE ---
Day shift: Dr Johnson informed of Pt's SOB at rest and HR in the 130's at approx 1335.
--- NOTE | 2021-11-22 13:56 | PC.NURSE ---
Day shift: Placed on 4L HF NC and O2 is 95% at rest. HR 125.
[2021-11-22 14:10] LABS: Fractionated Inspired Oxygen 36; HCO3 ABG 30 mmol/L (22-26); Oxygen Saturation ABG 91 % (95-100); PCO2 ABG 63.5 mmHg (35-45); PO2 ABG 71 mmHg (80-100); TCO2 ABG 32 mmol/L (21-31); pH ABG 7.28 (7.35-7.45)
[2021-11-22 14:49] LABS: Troponin I 0.095 ng/mL (0.01-0.034)
--- NOTE | 2021-11-22 16:23 | PM.PN.1 ---
Subjective Subjective Date Patient Seen: 11/22/21 Time Patient Seen: 08:00 Interval history: Today she is still short of breath. She feels she is starting to cough up phlegm more easily, she has noted no significant improvement overall though. Exam Vital Signs (past 8 hours): - 11/22/21 10:21 11/22/21 12:00 11/22/21 14:11 Pulse Rate 113 H Respiratory Rate 20 Blood Pressure 133/76 Pulse Oximetry 93 93 92 Oxygen Delivery Method Nasal Cannula Nasal Cannula Oxygen Flow Rate 2 2 3.5 Oxygen Delivery Method Nasal Cannula Oxygen Flow Rate 3.5 Narrative Exam Narrative: GEN: moderate respiratory distress HEENT: moist mucous membranes CV: tachycardic PULM: crackles bilaterally, poor air movement ABD: soft, nontender, nondistended EXT: warm and well perfused with no edema NEURO: awake, alert oriented Objective Labs Result Diagrams: 11/20/21 21:15 11/21/21 06:12 Labs: Laboratory Results - last 24 hr 11/21/21 11/22/21 11/22/21 06:12 14:00 14:09 ABG pH 7.28 L* ABG pCO2 63.5 H* ABG pO2 71 L ABG HCO3 30 H ABG Total CO2 32 H ABG O2 Saturation 91 L ABG Base Excess 3.0 H FiO2 36 Glucose 443 H Troponin I 0.095 H PFSH Medical History COPD (chronic obstructive pulmonary disease) Diabetes mellitus Lichen planus Social History household members: none Smoking Status: Former smoker Tobacco: How many years used: 60 quit status: has quit before alcohol intake: former substance use type: does not use Assessment & Plan Assessment & Plan narrative: Ms. Colón is a 76W PMH COPD, DM who presents with acute on chronic respiratory failure. 1.Acute on chronic respiratory failure -patient states consistent with prior COPD exacerbation -also has new diagnosis of CHF -CTA negative for PE -ordered for nebs and steroids -start azithromycin as well -wean off oxygen as able -diurese as above 2. Acute on chronic COPD exacerbation -continue nebs, steroids, and around the clock and PRN nebs as above -ABG today showed pH of 7.28, co2 63 -however with diuresis respiratory status has started feeling better -repeat ABG 3. New onset CHFrEF -noted to have fluid in the lungs, elevated bnp, and mild lower extremity edema -no known history of chf -has elevated troponin consistent with cardiac demand ischemia -ordered for echo which showed new EF of 20-25% -will continue with diuresis at 40mg IV BID, goal 1-2L negative -will need to start beta-adán, but hold for now with acute heart failure, once more euvolemic will start -start lisinopril low dose 4. Type 2 DM, not in insulin, hyperglycemia -initial blood sugar in 400s, a1c >12 -start on lantus 10u, and insulin sliding scale -continue metformin, glipizide -sugars improved to 200s -program strategist consulted Time Spent With Patient Critical Care time: I spent a total of [] minutes of critical care time on this patient's care today; this time is exclusive of procedural time.
[2021-11-22 17:16] LABS: pH ABG 7.31 (7.35-7.45)
[2021-11-22 17:17] LABS: Fractionated Inspired Oxygen 28; HCO3 ABG 29 mmol/L (22-26); Oxygen Saturation ABG 95 % (95-100); PO2 ABG 82 mmHg (80-100); TCO2 ABG 31 mmol/L (21-31)
[2021-11-22] MEDS: ALBUTEROL/IPRATROPIUM 3 ML AMPUL INH (19:33)
[2021-11-22] MEDS: ATORVASTATIN 20 MG TABLET 40 MG PO (20:22)
[2021-11-22] MEDS: SODIUM CHLORIDE 0.9% FLUSH 10 ML IV (20:22)
[2021-11-22] MEDS: INSULIN GLARGINE 100 UNIT/ML 3ML PEN 10 UNIT SUBCUT (20:24)
[2021-11-23] VITALS (12 sets, daily range): BP systolic 76–120; BP diastolic 41–70; PULSE 90–106; RESP 17–20; TEMP 35.6–36.5; O2SAT 94–99
[2021-11-23 05:37] LABS: Hematocrit 37.3 % (36-46); Hemoglobin 12.6 g/dL (12.0-16.0); Mean Corpuscular HGB Conc 33.7 % (30-36); Mean Corpuscular Hemoglobin 29.3 PG (26-34); Mean Corpuscular Volume 86.8 fL (80-100); Platelet Count 210 X10^3/uL (150-400); Red Cell Distribution Width 14.7 % (11.6-14.8); White Blood Cell Count 6.8 X10^3/uL (4.5-11.0)
[2021-11-23 05:46] LABS: BUN Creatinine Ratio 36.1 (6-22); Blood Urea Nitrogen 26 mg/dL (7-17); Calcium 8.7 mg/dL (8.4-10.2); Carbon Dioxide 38 mmol/L (22-32); Chloride 94 mmol/L (98-107); Estimated Glomerular Filt Rate > 60 mL/min (>60); Glucose 116 mg/dL (80-110); HEMOLYSIS < 15 (0-50); Magnesium 1.7 mg/dL (1.6-2.3); Potassium 4.2 mmol/L (3.4-5.1); Sodium 137 mmol/L (137-145)
[2021-11-23] MEDS: SODIUM CHLORIDE 0.9% FLUSH 10 ML IV ×2 (08:39→21:09)
[2021-11-23] MEDS: FUROSEMIDE 40 MG/4 ML VIAL IV (08:40)
[2021-11-23] MEDS: guaiFENesin ER 600 MG TAB PO ×2 (08:41→21:09)
[2021-11-23] MEDS: lisinopriL 5 MG TABLET 2.5 MG PO (08:41)
[2021-11-23] MEDS: METFORMIN 850 MG TABLET PO ×3 (08:41→17:15)
[2021-11-23] MEDS: predniSONE 20 MG TABLET 40 MG PO (08:41)
[2021-11-23] MEDS: METOPROLOL ER 25 MG TABLET PO (08:41)
[2021-11-23] MEDS: ASPIRIN EC 81 MG TABLET PO (08:42)
[2021-11-23] MEDS: INSULIN LISPRO 100 UNIT/ML 3ML VIAL SUBCUT ×4 (08:43→21:13)
[2021-11-23] MEDS: ENOXAPARIN 40 MG/0.4 ML SYRINGE SUBCUT (08:43)
[2021-11-23] MEDS: ALBUTEROL/IPRATROPIUM 3 ML AMPUL INH ×3 (09:51→19:45)
[2021-11-23] MEDS: ALBUTEROL 2.5 MG/3 ML NEB (ADULT) INH (13:01)
[2021-11-23] MEDS: AZITHROMYCIN 500 MG in DEXTROSE 5% IN WATER 250 ML 250 MG IV (13:20)
[2021-11-23] MEDS: INSULIN LISPRO 100 UNIT/ML 3ML VIAL 10 UNIT SUBCUT (14:40)
[2021-11-23] MEDS: SODIUM CHLORIDE 0.9% 500 ML 1000 ML IV ×2 (14:52→17:21)
--- NOTE | 2021-11-23 15:31 | P.PN_ITS ---
Subjective Subjective Date Patient Seen: 11/23/21 Time Patient Seen: 08:00 Interval history: Her respiratory status is much improved. Her shortness of breath is present but significantly improving. She has diuresed briskly. She was reevaluated in the afternoon and noted to have a blood pressure in the 80s, and dizziness, along with blood sugar in the 300s. She has been diuresing briskly, and in addition for her systolic CHF she is newly started on low dose virgie-inhibitor and beta-adán. PM lasix held and bolus given. Exam Vital Signs (past 8 hours): - 11/23/21 08:25 11/23/21 09:53 11/23/21 08:35 Temperature 96.3 F L Pulse Rate 94 H Respiratory Rate 17 Blood Pressure 116/70 Pulse Oximetry 96 98 Oxygen Delivery Method Nasal Cannula Nasal Cannula Oxygen Flow Rate 2 2 11/23/21 12:54 11/23/21 13:02 11/23/21 14:20 Temperature 96.1 F L Pulse Rate 101 H 98 H Respiratory Rate 18 20 Blood Pressure 101/63 88/55 L Pulse Oximetry 95 94 Oxygen Delivery Method Nasal Cannula Oxygen Flow Rate 0 2 2 11/23/21 15:15 Temperature Pulse Rate Respiratory Rate Blood Pressure Pulse Oximetry 96 Oxygen Delivery Method Nasal Cannula Oxygen Flow Rate 2 Oxygen Delivery Method Nasal Cannula Oxygen Flow Rate 2 Narrative Exam Narrative: GEN: moderate respiratory distress HEENT: moist mucous membranes CV: tachycardic PULM: crackles bilaterally, improved air movement ABD: soft, nontender, nondistended EXT: warm and well perfused with no edema, scaly shins NEURO: awake, alert oriented Objective Labs Result Diagrams: 11/23/21 05:11 11/23/21 05:11 Labs: Laboratory Results - last 24 hr 11/21/21 11/22/21 11/23/21 06:12 17:04 05:11 WBC 6.8 RBC 4.30 Hgb 12.6 Hct 37.3 MCV 86.8 MCH 29.3 MCHC 33.7 RDW 14.7 Plt Count 210 ABG pH 7.31 L ABG pCO2 58.0 H ABG pO2 82 ABG HCO3 29 H ABG Total CO2 31 ABG O2 Saturation 95 ABG Base Excess 3.0 H FiO2 28 Sodium Potassium Chloride Carbon Dioxide BUN Creatinine Estimated GFR BUN/Creatinine Ratio Glucose Cancelled Calcium Magnesium 11/23/21 05:11 WBC RBC Hgb Hct MCV MCH MCHC RDW Plt Count ABG pH ABG pCO2 ABG pO2 ABG HCO3 ABG Total CO2 ABG O2 Saturation ABG Base Excess FiO2 Sodium 137 Potassium 4.2 Chloride 94 L Carbon Dioxide 38 H BUN 26 H Creatinine 0.72 Estimated GFR > 60 BUN/Creatinine Ratio 36.1 H Glucose 116 H D Calcium 8.7 Magnesium 1.7 [facility] Medical History COPD (chronic obstructive pulmonary disease) Diabetes mellitus Lichen planus Social History household members: none Smoking Status: Former smoker Tobacco: How many years used: 60 quit status: has quit before alcohol intake: former substance use type: does not use Assessment & Plan Assessment & Plan narrative: Ms. Colón is a 76W PMH COPD, DM who presents with acute on chronic respiratory failure. 1.Acute on chronic respiratory failure -patient states consistent with prior COPD exacerbation -also has new diagnosis of CHF -CTA negative for PE -ordered for nebs and steroids -start azithromycin as well -wean off oxygen as able -diurese as above 2. Acute on chronic COPD exacerbation -continue nebs, steroids, and around the clock and PRN nebs as above -ABG today showed pH of 7.28, co2 63 -however with diuresis respiratory status has started feeling better -repeat ABG 3. New onset CHFrEF -noted to have fluid in the lungs, elevated bnp, and mild lower extremity edema -no known history of chf -has elevated troponin consistent with cardiac demand ischemia -ordered for echo which showed new EF of 20-25% -will continue with diuresis with IV lasix, goal 1-2L negative -will need to start beta-adán, but hold for now with acute heart failure, once more euvolemic will start -start lisinopril low dose 4. Type 2 DM, not in insulin, hyperglycemia -initial blood sugar in 400s, a1c >12 -start on lantus 10u, and insulin sliding scale -continue metformin, glipizide -sugars improved to 200s -retail merchandiser consulted 5. Acute dizziness -occurred in afternoon on 11/23 -blood sugar high, and blood pressure low -hold lasix on 7/2, restart lasix daily on 11/24 -gave slight bolus on 11/23 with improved symptoms -consider that etiology may be new beta-adán or lisinopril so if symptoms continue, consider stopping Time Spent With Patient Critical Care time: I spent a total of [] minutes of critical care time on this patient's care today; this time is exclusive of procedural time.
--- NOTE | 2021-11-23 15:32 | PT.IIE ---
Current Diagnoses Acute and chronic respiratory failure, unspecified whether with hypoxia or hypercapnia (11/22/21) Medical History (Last Reviewed 11/21/21 @ 00:44 by Hesham Shipman MD) COPD (chronic obstructive pulmonary disease) Diabetes mellitus Lichen planus Physical Therapy Inpatient Evaluation/Re-Eval M1 PT/OT-IP Prior Functional Status Start: 11/23/21 16:09 Freq: NEEDED Status: Active Protocol: Document 11/23/21 15:32 AB (Rec: 11/23/21 16:21 AB [id number]) Medical Review Prior Functional Status Medical History Reviewed Yes Communication able to make needs known Mobility and Gait pt staed that she is modified independent with all mobilities and ambulation without AD in her apartment but uses a 4WW when she goes out of her apartment or has to walk long distances; pt still drives Social History Household Members none Living Arrangements [facility] Facility Number of Stairs To Enter/Railing? pt lives at [facility] with elevator to get to her 3rd floor apartment Home Environment High Toilet,Walk in Shower Home Equipment Four Wheel Walker,Shower Seat with Backrest,Hand Held Shower ,Grab Bars In Shower Additional Social History Comment pt can ask for assistance when needed: has a call light for staff to assist M2 PT-IP Current Condition Start: 11/23/21 16:09 Freq: NEEDED Status: Active Protocol: Document 11/23/21 15:32 AB (Rec: 11/23/21 16:21 AB [id number]) Physical Therapy Current Condition Current Condition Evaluation Date 11/23/21 Treatment Diagnosis COPD exacerbation; difficulty in walking Onset Date 11/22/21 M3 PT-IP Subjective Start: 11/23/21 16:09 Freq: NEEDED Status: Active Protocol: Document 11/23/21 15:32 AB (Rec: 11/23/21 16:21 AB [id number]) Subjective Physical Therapy Visit Type Type Initial Evaluation Visit Start Time 15:32 Visit Stop Time 16:05 Total Visit Minutes 33 Number of ELECTRONIC PUBLISHER Visits 0 Physical Therapy Visit Comments Patient Comments agreeable to do PT Therapy Pain Assessment Pain Present Pain Present Denied Pain M4 PT-IP Mobility and Gait Start: 11/23/21 16:09 Freq: NEEDED Status: Active Protocol: Document 11/23/21 15:32 AB (Rec: 11/23/21 16:21 AB [id number]) PT-Bed Mobility Assessment Supine to Sit Supine to Sit Independent Sit to Supine Sit to Supine Independent PT-Transfer Assessment Sit to and From Stand Sit to and from Stand Standby Assistance,Contact Guard Assistance,1 Person Assistance Equipment Transfer Assistive Device None,Gait Belt,Front Wheeled Walker,4 Wheeled Walker Orthotic/Prosthetic Devices or Brace: No Transfers Transfer Destination Bed,Toilet Transfer Ability Level of Assist Standby Assistance,Use of Upper Extremities Comments Mobility Comments pt sitting on chair. requested to use the toilet. took a few steps without AD to the toilet CGA without AD. unsteady gait. completed toileting needs SBA. ambulated to the toilet using FWW SBA. able to maintain standing using FWW SBA while completing handwashing. ambulated back to the chair using fWW SBA. assessed ambulation using 4WW and pt ambulated to EOB ~ 12 ft using 4WW SBA. completed bed mobility mod I. ambulated back to the chair using 4WW SBA. O2 sat decreases with mobility to ~ 86-88%. cued for PLB and O2 increases to ~ 90% in ~ 15 sec with 1 1/2 O2 on. positioned pt on the chair. call light and table placed within reach. Gait Assessment Gait Gait Assistance Required: Standby Assistance Distance (Feet) 12 Able to Maintain Weight Bearing Status Yes During Gait Assistive Devices Assistive Device Gait Belt,Front Wheeled Walker ,4 Wheeled Walker Orthotic/Prosthetic Devices or Brace: No Gait Deviations General Gait Pattern Decreased Stride Length, Decreased Feet Clearance Factors Limiting Gait Function Factors Limiting Gait Function Decreased Activity Tolerance, Poor Safety Awareness, Respiratory Distress PT-Balance Assessment Sitting Balance and Reactions Static Sitting Balance Ability Normal Dynamic Sitting Balance Ability Normal Standing Balance and Reactions Static Standing Balance Ability Good Dynamic Standing Balance Ability Fair Device Used without AD M5 PT-IP Objective Assessments Start: 11/23/21 16:09 Freq: NEEDED Status: Active Protocol: Document 11/23/21 15:32 AB (Rec: 11/23/21 16:21 AB [id number]) Orientation Orientation/Cognition Level of Alertness Alert Orientation Name,Place,Situation Language Function Ability No Deficits Noted Safety Awareness Decreased Safety Awareness Memory Description No Deficits Noted Gross Range of Motion Lower Extremity ROM Assessment Within Functional Limits Strength Lower Extremity Strength Assessment Within Functional Limits Coordination Assessment Gross Coordination Gross Coordination WNL Sensation Assessment Sensation Gross Sensation Right LE Impaired,Left LE Impaired Sensation Description Tingling Comments Sensation Comments pt stated that she has diabetic neuropathy Muscle Tone Muscle Tone WNL Yes M6 PT-IP Treatment Start: 11/23/21 16:09 Freq: NEEDED Status: Active Protocol: Document 11/23/21 15:32 AB (Rec: 11/23/21 16:21 AB [id number]) Physical Therapy Treatment Education Education Provided Safety M7 PT-IP Assessment and Plan Start: 11/23/21 16:09 Freq: NEEDED Status: Active Protocol: Document 11/23/21 15:32 AB (Rec: 11/23/21 16:21 AB [id number]) PT Summary Assessment and Plan Potential Rehabilitation Potential Good Status of Condition at Evaluation Evolving Summary Impairments Pain,ROM,Strength,Balance, Coordination,Sensation, Transfers,Gait,Activity Tolerance Assessment Summary pt requiring SBA with mobility using 4WW but with decrease in O2 sat to ~ 86-88% with O2 on. Will continue to assess progress. pt lives at [facility] and pt stated that she can have staff assist her if needed. Pt will benefit from outpt cardiopulmonary rehab. Goals Transfer Goal Independent,Four Wheeled Walker Gait Goal Independent,Four Wheel Walker Gait Distance 200 Other Goals improve ambulation without AD 100 ft mod I Days to Meet Goals 10 Frequency of Treatment Frequency Of Treatment Once a Day Treatment Plan Physical Therapy Treatment Plan Bed Mobility Training,Transfer Training,Gait Training, Therapeutic Exercise,Balance Retraining,Discharge Planning, Hot or Cold Pack,Neuromuscular Re-ed,Coordination Retraining Precautions Other Precautions O2 sat Recommendations To Nursing Amount of Assist Needed Standby Assistance Discharge Recommendations PT Discharge Recommendations Home with Assistance, Outpatient PT Transportation Needs at Discharge Private Vehicle
[2021-11-23 16:20] LABS: BUN Creatinine Ratio 49.3 (6-22); Blood Urea Nitrogen 34 mg/dL (7-17); Calcium 8.4 mg/dL (8.4-10.2); Carbon Dioxide 30 mmol/L (22-32); Chloride 91 mmol/L (98-107); Estimated Glomerular Filt Rate > 60 mL/min (>60); Glucose 380 mg/dL (80-110); HEMOLYSIS < 15 (0-50); Magnesium 1.4 mg/dL (1.6-2.3); Potassium 4.9 mmol/L (3.4-5.1); Sodium 132 mmol/L (137-145)
--- NOTE | 2021-11-23 16:48 | PC.NURSE ---
Day Shift Note Patient alert and oriented x3. Episode this afternoon where pt reported nausea and dizziness, BP 80s/40s, HR 90-110, CBG 397. Findings reported to MD and orders received. 10 units subcut lispro administered as well as 500 ml NS IV bolus. Pt reported dizziness and nausea gone after these interventions and BP 90/50s (See VS). Continues on 2L NC with SpO2 low 90s, reports shortness of breath improved today. Denies pain. Denies nausea. Up independently to void via BSC, steady on feet. Call light within reach, using appropriately to make needs known.
[2021-11-23] MEDS: MAGNESIUM SULFATE 4 GM/100 ML PIGGYBACK IV (21:08)
[2021-11-23] MEDS: ATORVASTATIN 20 MG TABLET 40 MG PO (21:09)
[2021-11-23] MEDS: INSULIN GLARGINE 100 UNIT/ML 3ML PEN 10 UNIT SUBCUT (21:12)
[2021-11-24] VITALS (9 sets, daily range): BP systolic 98–138; BP diastolic 52–75; PULSE 93–112; RESP 17–20; TEMP 35.8–36.4; O2SAT 91–99
[2021-11-24 05:29] LABS: Hematocrit 37.1 % (36-46); Hemoglobin 12.5 g/dL (12.0-16.0); Mean Corpuscular HGB Conc 33.7 % (30-36); Mean Corpuscular Hemoglobin 29.3 PG (26-34); Platelet Count 198 X10^3/uL (150-400); Red Blood Cell Count 4.27 X10^6/uL (4.0-5.2); White Blood Cell Count 6.4 X10^3/uL (4.5-11.0)
[2021-11-24 05:38] LABS: BUN Creatinine Ratio 67.3 (6-22); Blood Urea Nitrogen 33 mg/dL (7-17); Calcium 8.6 mg/dL (8.4-10.2); Carbon Dioxide 36 mmol/L (22-32); Chloride 96 mmol/L (98-107); Estimated Glomerular Filt Rate > 60 mL/min (>60); Glucose 77 mg/dL (80-110); HEMOLYSIS 45 (0-50); Magnesium 2.7 mg/dL (1.6-2.3); Potassium 3.9 mmol/L (3.4-5.1); Sodium 138 mmol/L (137-145)
[2021-11-24] MEDS: ALBUTEROL/IPRATROPIUM 3 ML AMPUL INH ×4 (07:35→19:21)
[2021-11-24] MEDS: predniSONE 20 MG TABLET 40 MG PO (08:04)
[2021-11-24] MEDS: guaiFENesin ER 600 MG TAB PO ×2 (08:04→20:50)
[2021-11-24] MEDS: FUROSEMIDE 20 MG/2 ML VIAL IV (08:06)
[2021-11-24] MEDS: ASPIRIN EC 81 MG TABLET PO (08:06)
[2021-11-24] MEDS: INSULIN GLARGINE 100 UNIT/ML 3ML PEN 10 UNIT SUBCUT ×2 (08:30→20:57)
[2021-11-24] MEDS: METFORMIN 850 MG TABLET PO ×3 (09:00→17:05)
[2021-11-24] MEDS: ENOXAPARIN 40 MG/0.4 ML SYRINGE SUBCUT (10:31)
[2021-11-24] MEDS: SODIUM CHLORIDE 0.9% FLUSH 10 ML IV (10:31)
[2021-11-24] MEDS: AZITHROMYCIN 500 MG in DEXTROSE 5% IN WATER 250 ML 250 MG IV (11:50)
--- NOTE | 2021-11-24 12:16 | P.PN_ITS ---
Subjective Subjective Date Patient Seen: 11/24/21 Time Patient Seen: 09:45 Interval history: Elaine Colón is a 76 y.o. female recently relocated from [place] admitted for a COPD exacerbation, CHF, and found to be in poor diabetic control. Patient has been paying more attention to her relocation and family issues. Her last year. She states that she used to have a emergency oxygen unit that she would use on a as needed basis back at home. She feels better right now, denies shortness of breath but does need to go to the bathroom urgently, she has been receiving twice daily Lasix for diuresis. She was initiated on an ANDREW- inhibitor yesterday. Blood pressure and heart rate have been soft so beta- kerry has not been started for her as yet. Exam Vital Signs (past 8 hours): - 11/24/21 07:39 11/24/21 07:50 11/24/21 10:53 Temperature 96.9 F L Pulse Rate 93 H Respiratory Rate 17 Blood Pressure 98/52 L Pulse Oximetry 99 99 97 Oxygen Delivery Method Nasal Cannula Nasal Cannula Oxygen Flow Rate 2 2 2 11/24/21 12:00 Temperature 96.7 F L Pulse Rate 95 H Respiratory Rate 18 Blood Pressure 101/62 Pulse Oximetry 96 Oxygen Delivery Method Oxygen Flow Rate 2 Oxygen Delivery Method Nasal Cannula Oxygen Flow Rate 2 Narrative Exam Narrative: Gen: Alert, oriented, obese 76 y.o. female, NAD HEENT: normocephalic, atraumatic, conjunctiva clear, sclera non-icteric, oral mucosa pink and moist Neck: supple, full ROM, no JVD, trachea is midline Resp: Lungs CTA, non-labored breathing CV: RRR, no murmur or rubs Abd: soft, non-tender, normoactive BTs Skin: Plaque-like deposits on her lower extremities and very dry Neuro: Alert and oriented X 4 w/no focal deficits. Speech clear and coherent. Extremities: no edema appreciated today moves all 4 extremities, is ambulatory, negative Jose?s sign Psyche: normal mood and affect. Objective Labs Result Diagrams: 11/24/21 04:50 11/24/21 04:50 Labs: Laboratory Results - last 24 hr 11/23/21 11/24/21 11/24/21 14:00 04:50 04:50 WBC 6.4 RBC 4.27 Hgb 12.5 Hct 37.1 MCV 87.0 MCH 29.3 MCHC 33.7 RDW 15.0 H Plt Count 198 Sodium 132 L 138 Potassium 4.9 3.9 Chloride 91 L 96 L Carbon Dioxide 30 36 H BUN 34 H 33 H Creatinine 0.69 0.49 L Estimated GFR > 60 > 60 BUN/Creatinine Ratio 49.3 H 67.3 H Glucose 380 H D 77 L D Calcium 8.4 8.6 Magnesium 1.4 L 2.7 H PFSH Medical History (Updated 11/24/21 @ 12:27 by NICO Garcia) Bladder cystocele COPD (chronic obstructive pulmonary disease) Diabetes mellitus Lichen planus Surgical History (Updated 11/24/21 @ 12:27 by NICO Garcia) History of removal of cyst Family History (Updated 11/24/21 @ 12:30 by NICO Garcia) Mother Diabetes mellitus Father MVA (motor vehicle accident) Sister Cancer Sister Alcohol poisoning Sister Tobacco dependence Drinks alcohol Social History (Updated 11/24/21 @ 12:31 by NICO Garcia) household members: none Smoking Status: Former smoker Tobacco: How many years used: 60 quit status: has quit before second hand exposure: Yes alcohol intake: current substance use type: does not use Assessment & Plan Assessment & Plan narrative: Dani Colón is admitted for shortness of breath in the setting of acute on chronic COPD and acute CHF exacerbation. Acute CHF exacerbation, present on admission * Echocardiogram indicates that she has an ef of 20% and has systolic heart failure * Patient is receiving Lasix diuresis twice daily and having good urine output Acute on chronic COPD exacerbation CHADs Vasc 2 score of 7 * She is receiving IV azithromycin and nebulizers, of changed her azithromycin to oral today as she is eating well Diabetes type 2 with a A1c of greater than 12 * She is initiated on subcu Lantus 10 units b.i.d. and insulin correctional scale COVID-19 COVID-19 status: Negative Result date/Date tested (Pos, Neg/Pending): 10/21/21 Scores CHADS-VASc Congestive heart failure: yes Hypertension: yes Age 75 years or older: yes Diabetes mellitus: yes Stroke, TIA, or TE: no Vascular disease: yes Age 65 to 74 years: no Sex category (female): Female CHADS-VASc Score: 7 Quality VTE Deep Vein Thrombosis/Pulmonary Embolism Present on Admission: No MIPS - Admit I confirm the patient?s Advance Care Plan is present, Code status is documented, Surrogate decision maker is in patient?s record [If Yes, STOP here]: Yes MIPS - DC The patient has current or prior documentation of left ventricular ejection fraction (LVEF) less than 40%, or moderate or severely depressed left ventricular systolic function.: Yes A. The patient was prescribed or already taking an Angiotensin-Converting Enzyme (ANDREW) Inhibitor, or Angiotensin Receptor Kerry (ARB).: Yes B. The patient was prescribed or already taking a beta-kerry. [If Yes to Both A & B, STOP here]: Yes Patient not prescribed/taking Beta-kerry for medical/patient/system reason(s) including (ex: allergy, intolerance, contraindication).: New dx, holding until e uvolemic.
[2021-11-24] MEDS: INSULIN LISPRO 100 UNIT/ML 3ML VIAL SUBCUT ×3 (12:42→20:58)
--- NOTE | 2021-11-24 13:10 | PC.NURSE ---
1300- Pt anxious, c/o feeling lightheaded and flushed. BP 110/67 hr 108, 95% on 1.5L, Pt also c/o iv site discomfort, flushes without difficulty or pain, reduced ABX infusion rate to 100cc/hr, pt c/o discomfort when moving arm. IV site in AC, pt does not want to have site moved, supported on while ABX infusing. Adjusted fan. Pt reports that helps with flush feeling. Monitor.
--- NOTE | 2021-11-24 13:15 | PC.NURSE ---
AM shift Pt is A/o x4, making needs known with call light. Pt reports living independently prior to admission, increasing fatigue and exercise intolerance over the last 30 days. Reports previous Dx of heart failure, but It got better Pt with notable increased anxiety after AM meds. Reports a small amount of nausea and anxiety, speech is faster, Pt tearful, am I getting worse? NC @ 1.5L Spo2 95% SOB with activity. D/t timing and onset of these symptoms, Pt may not be tolerating steroids, update to Bushra WALSH. Pt is sitting up in chair, with meal at present. BP remains soft with held dose of AM lisinopril, after 7/2 hypotensive complications. Continue to get fluid off using BSC with SBA.
--- NOTE | 2021-11-24 13:43 | CM.DPC ---
DCP Cont: DCP spoke with pt this afternoon to inform her that [facility] sent a referral to [facility] today. ARMANIP explained services to pt and she agrees that it would be good to start with. DCP also informed pt that upon discharge, pt would need an assessment from [facility] to make sure she is ok to go back to facility. Pt asked questions and were answered by ARMANIP. Pt states that friend Jessica would be able to come check on her and take her to appointments when needed. DCP placed a call to [facility] to inquire about when they would be able to come assess pt but no answer. Pt could have an anticipated discharge tomorrow. P: Once medically cleared by medical team and [facility], pt to go back to [facility] independent living. Meghna Smith RN/ARMANIP
--- NOTE | 2021-11-24 14:47 | PT.IPTN ---
Current Diagnoses Acute and chronic respiratory failure, unspecified whether with hypoxia or hypercapnia (11/22/21) Physical Therapy Treatment Note M2 PT-IP Current Condition Start: 11/23/21 16:09 Freq: NEEDED Status: Active Protocol: Document 11/23/21 15:32 AB (Rec: 11/23/21 16:21 AB [id number]) Physical Therapy Current Condition Current Condition Evaluation Date 11/23/21 Treatment Diagnosis COPD exacerbation; difficulty in walking Onset Date 11/22/21 M3 PT-IP Subjective Start: 11/23/21 16:09 Freq: NEEDED Status: Active Protocol: Document 11/24/21 14:47 AW (Rec: 11/24/21 15:03 AW [id number]) Subjective Physical Therapy Visit Type Type Treatment Note Visit Start Time 14:21 Visit Stop Time 14:47 Total Visit Minutes 26 Number of DENTAL CERAMIST ASSISTANT Visits 0 Physical Therapy Visit Comments Patient Comments Pt is willing to participate with PT Patient Goals Return to [facility] and to [facility] Pain Assessment Pain When Pain Assessed During Mobility Pain Present Pain Present Denied Pain M4 PT-IP Mobility and Gait Start: 11/23/21 16:09 Freq: NEEDED Status: Active Protocol: Document 11/24/21 14:47 AW (Rec: 11/24/21 15:03 AW [id number]) PT-Transfer Assessment Sit to and From Stand Sit to and from Stand Standby Assistance,Use of Upper Extremities Equipment Transfer Assistive Device None,Gait Belt,4 Wheeled Walker Orthotic/Prosthetic Devices or Brace: No Transfers Transfer Destination Chair Transfer Ability Level of Assist Standby Assistance,Use of Upper Extremities Comments Mobility Comments Pt was sitting up on the chair as PT arrived. On 1.5L/min O2 , SpO2 was 94%. Pt stood and used 4WW to ambulate a total of 75 feet SBA as PT managed O2. Pt sat on folding chair back in the room. SpO2 dropped to 85% as pt returned to the room but returned to 97% within one minute of seated rest. Pt stood and used no AD to walk back to the recliner. SpO2 was stable. Pt was left in the chair with call light in reach. Gait Assessment Gait Gait Assistance Required: Standby Assistance Distance (Feet) 75 Assistive Devices Assistive Device Gait Belt,4 Wheeled Walker Gait Deviations General Gait Pattern Decreased Stride Length, Decreased Feet Clearance Factors Limiting Gait Function Factors Limiting Gait Function Decreased Activity Tolerance, Respiratory Distress PT-Balance Assessment Sitting Balance and Reactions Static Sitting Balance Ability Normal Dynamic Sitting Balance Ability Normal Standing Balance and Reactions Static Standing Balance Ability Good Dynamic Standing Balance Ability Good Device Used 4WW M5 PT-IP Objective Assessments Start: 11/23/21 16:09 Freq: NEEDED Status: Active Protocol: Document 11/23/21 15:32 AB (Rec: 11/23/21 16:21 AB [id number]) Orientation Orientation/Cognition Level of Alertness Alert Orientation Name,Place,Situation Language Function Ability No Deficits Noted Safety Awareness Decreased Safety Awareness Memory Description No Deficits Noted Gross Range of Motion Lower Extremity ROM Assessment Within Functional Limits Strength Lower Extremity Strength Assessment Within Functional Limits Coordination Assessment Gross Coordination Gross Coordination WNL Sensation Assessment Sensation Gross Sensation Right LE Impaired,Left LE Impaired Sensation Description Tingling Comments Sensation Comments pt stated that she has diabetic neuropathy Muscle Tone Muscle Tone WNL Yes M6 PT-IP Treatment Start: 11/23/21 16:09 Freq: NEEDED Status: Active Protocol: Document 11/24/21 14:47 AW (Rec: 11/24/21 15:03 AW [id number]) Physical Therapy Treatment Education Education Provided Safety M7 PT-IP Assessment and Plan Start: 11/23/21 16:09 Freq: NEEDED Status: Active Protocol: Document 11/24/21 14:47 AW (Rec: 11/24/21 15:03 AW [id number]) PT Summary Assessment and Plan Summary Impairments Pain,ROM,Strength,Balance, Coordination,Sensation, Transfers,Gait,Activity Tolerance Progress Towards Goals Progressing Toward Goals Assessment Summary Pt requires SBA for mobility using 4WW. SpO2 dropped from 94% at rest to 85% after 75 feet ambulation but quickly recovered to 98% on 1.5 L/min O2. Pt will be safe to discharge back to [facility] once medically stable. She would benefit form outpatient pulmonary rehab. Goals Transfer Goal Independent,Four Wheeled Walker Gait Goal Independent,Four Wheel Walker Gait Distance 200 Other Goals improve ambulation without AD 100 ft mod I Days to Meet Goals 10 Frequency of Treatment Frequency Of Treatment Once a Day Treatment Plan Physical Therapy Treatment Plan Bed Mobility Training,Transfer Training,Gait Training, Therapeutic Exercise,Balance Retraining,Discharge Planning, Hot or Cold Pack,Neuromuscular Re-ed,Coordination Retraining Precautions Other Precautions O2 sat Recommendations To Nursing Amount of Assist Needed Standby Assistance,1 Person Assist Discharge Recommendations PT Discharge Recommendations Home with Assistance Other Discharge Recommendations Pulmonary Rehab Transportation Needs at Discharge Private Vehicle
[2021-11-24] MEDS: ATORVASTATIN 20 MG TABLET 40 MG PO (20:50)
[2021-11-25] VITALS: BP 116/62; PULSE 99; RESP 19; TEMP 36.7; O2SAT 92
[2021-11-25 04:00] VITALS: BP 124/62; PULSE 97; RESP 19; TEMP 36.3; O2SAT 92
[2021-11-25] MEDS: ALBUTEROL 2.5 MG/3 ML NEB (ADULT) INH (05:16)
[2021-11-25] MEDS: ALBUTEROL/IPRATROPIUM 3 ML AMPUL INH ×2 (07:19→11:31)
[2021-11-25 07:25] VITALS: O2SAT 94
[2021-11-25 08:00] VITALS: BP 124/64; PULSE 98; RESP 20; TEMP 36.4; O2SAT 97
[2021-11-25] MEDS: ENOXAPARIN 40 MG/0.4 ML SYRINGE SUBCUT (08:44)
[2021-11-25 08:45] VITALS: BP 124/64
[2021-11-25] MEDS: METFORMIN 850 MG TABLET PO ×2 (08:45→12:20)
[2021-11-25] MEDS: AZITHROMYCIN 250 MG TABLET PO (08:45)
[2021-11-25] MEDS: FUROSEMIDE 20 MG/2 ML VIAL IV (08:45)
[2021-11-25] MEDS: guaiFENesin ER 600 MG TAB PO (08:45)
[2021-11-25] MEDS: ASPIRIN EC 81 MG TABLET PO (08:45)
[2021-11-25] MEDS: lisinopriL 5 MG TABLET 2.5 MG PO (08:45)
[2021-11-25] MEDS: INSULIN GLARGINE 100 UNIT/ML 3ML PEN 10 UNIT SUBCUT (08:46)
[2021-11-25] MEDS: SODIUM CHLORIDE 0.9% FLUSH 10 ML IV (08:51)
--- NOTE | 2021-11-25 11:06 | PT.IPTN ---
Current Diagnoses Acute and chronic respiratory failure, unspecified whether with hypoxia or hypercapnia (11/22/21) Physical Therapy Treatment Note M2 PT-IP Current Condition Start: 11/23/21 16:09 Freq: NEEDED Status: Active Protocol: Document 11/23/21 15:32 AB (Rec: 11/23/21 16:21 AB [id number]) Physical Therapy Current Condition Current Condition Evaluation Date 11/23/21 Treatment Diagnosis COPD exacerbation; difficulty in walking Onset Date 11/22/21 M3 PT-IP Subjective Start: 11/23/21 16:09 Freq: NEEDED Status: Active Protocol: Document 11/25/21 11:06 AB (Rec: 11/25/21 13:46 AB [id number]) Subjective Physical Therapy Visit Type Type Treatment Note Visit Start Time 11:06 Visit Stop Time 11:20 Total Visit Minutes 14 Number of CONSULTING PROJECT DIRECTOR Visits 0 Physical Therapy Visit Comments Patient Comments agreeable to do PT M4 PT-IP Mobility and Gait Start: 11/23/21 16:09 Freq: NEEDED Status: Active Protocol: Document 11/25/21 11:06 AB (Rec: 11/25/21 13:46 AB [id number]) PT-Transfer Assessment Sit to and From Stand Sit to and from Stand Standby Assistance Equipment Transfer Assistive Device Gait Belt,4 Wheeled Walker Orthotic/Prosthetic Devices or Brace: No Comments Mobility Comments pt sitting on w/c and agreed to do PT. O2 sat at room air: ~90-92%. pt stated that she plans to go home this afternoon. agreed to do PT. assessed O2 sat at RA without O2 on. pt completed sit to stand SBA and ambulated ~ 75 ft u sing 4WW SBA. c/o BLE weakness midway ambulation and O2 sat decreased to 84-85%. pt sat back on chair. PLB completed O2 sat increased to ~ 87-88% but inconsistent. provided O2 on pt and O2 sat increased to 95%. informed nurse and MD. Left pt sitting on the chair. call light and table placed within reach. Gait Assessment Gait Gait Assistance Required: Standby Assistance Distance (Feet) 75 Able to Maintain Weight Bearing Status Yes During Gait Assistive Devices Assistive Device Gait Belt,4 Wheeled Walker Orthotic/Prosthetic Devices or Brace: No Gait Deviations General Gait Pattern Decreased Stride Length, Decreased Feet Clearance Factors Limiting Gait Function Factors Limiting Gait Function Decreased Activity Tolerance, Poor Balance,Poor Safety Awareness,Respiratory Distress M5 PT-IP Objective Assessments Start: 11/23/21 16:09 Freq: NEEDED Status: Active Protocol: Document 11/23/21 15:32 AB (Rec: 11/23/21 16:21 AB [id number]) Orientation Orientation/Cognition Level of Alertness Alert Orientation Name,Place,Situation Language Function Ability No Deficits Noted Safety Awareness Decreased Safety Awareness Memory Description No Deficits Noted Gross Range of Motion Lower Extremity ROM Assessment Within Functional Limits Strength Lower Extremity Strength Assessment Within Functional Limits Coordination Assessment Gross Coordination Gross Coordination WNL Sensation Assessment Sensation Gross Sensation Right LE Impaired,Left LE Impaired Sensation Description Tingling Comments Sensation Comments pt stated that she has diabetic neuropathy Muscle Tone Muscle Tone WNL Yes M6 PT-IP Treatment Start: 11/23/21 16:09 Freq: NEEDED Status: Active Protocol: Document 11/25/21 11:06 AB (Rec: 11/25/21 13:46 AB [email or web address]) Physical Therapy Treatment Education Education Provided Safety M7 PT-IP Assessment and Plan Start: 11/23/21 16:09 Freq: NEEDED Status: Active Protocol: Document 11/25/21 11:06 AB (Rec: 11/25/21 13:46 AB [email or web address]) PT Summary Assessment and Plan Potential Rehabilitation Potential Fair Summary Impairments Pain,ROM,Strength,Balance, Coordination,Sensation,Tone, Cognition,Bed Mobility, Transfers,Gait,Activity Tolerance Progress Towards Goals Slow Progress due to Activity Tolerance Assessment Summary pt requiring SBA using 4WW for mobility but with decrease O2 sat at RA with ambulation. pt is agreeable to use O2 at home if needed. pt will benefit from outpt cardiopulmonary rehab. Goals Transfer Goal Independent,Four Wheeled Walker Gait Goal Independent,Four Wheel Walker Gait Distance 200 Other Goals improve ambulation without AD 100 ft mod I Days to Meet Goals 10 Frequency of Treatment Frequency Of Treatment Once a Day Treatment Plan Physical Therapy Treatment Plan Bed Mobility Training,Transfer Training,Gait Training, Therapeutic Exercise,Balance Retraining,Discharge Planning, Hot or Cold Pack,Neuromuscular Re-ed,Coordination Retraining Precautions Other Precautions O2 sat Recommendations To Nursing Amount of Assist Needed Standby Assistance,1 Person Assist Discharge Recommendations PT Discharge Recommendations Home with Assistance, Outpatient PT Other Discharge Recommendations Cardiopulmo Rehab Transportation Needs at Discharge Private Vehicle
[2021-11-25 12:00] VITALS: BP 111/59; PULSE 96; RESP 18; TEMP 36.8; O2SAT 91
[2021-11-25] MEDS: INSULIN LISPRO 100 UNIT/ML 3ML VIAL SUBCUT (12:20)
--- NOTE | 2021-11-25 13:16 | CM.DPC ---
DCP Discharge Home Per MD, pt is medically stable to d/c back to [facility] today. RT assessed for home oxygen and setting up oxygen for home today. Per PT, recommending return to home with outpt PT or outpt Pulmonary Rehab. SW met bedside with pt and RN and explained role and pt confirms she is agreeable with d/c back to [facility] today and aware of new home oxygen and SW inquired about prior referral to [facility] yesterday vs outpt PT/rehab. Pt confirms she feels HH would be beneficial at d/c due to new Home O2 needs and would like home PT/RN initially and will then transition to outpt PT. Pt confirmed her friend Jessica will provide transport home around 1400 today. SW discussed with MD who is agreeable with HH and signed F2F and SW called [facility] with update on d/c today and faxed d/c summary, signed F2F and HH orders to review. Plan: Patient to d/c back to [facility] today via friend POV and new [facility] to start after d/c. MILTON Mancini
--- NOTE | 2021-11-25 13:47 | PC.NURSE ---
Pt is dressed and ready for discharge home with Friend/Caregiver. IV has been removed. Went over d/c instructions with Pt. and friend discussed d/c meds, time of last dose, reviewed stroke education, CHF education-including Guidelines/stop light sheet, discussed carb control diet-recommended she enroll in a diabetes education class, discussed following up with PCP, and setting up care with a Clinic Scheduler and Surface Grinder. Discussed low sodium diet, low carb diet, and fluid restriction to no more than 2L a day. RT has been to see Pt and has set up home O2 as well as Oxygen use information. Pt out via w/c by PERPETUAL INVENTORY CLERK to POV with Friend and all belongings.
--- NOTE | 2021-11-25 14:13 | PM.DS.1 ---
History of Present Illness History of Present Illness Date Patient Seen: 11/25/21 Chief complaint: Difficulty breathing Narrative: 76-year-old female COPD, diabetes mellitus, and chronic lichen planus of the lower extremities to was admitted on November 21, 2021 after presenting to the emergency department complaining of lower extremity swelling, shortness of breath, and the need for oxygen. She does not typically use oxygen, even at night. She recently moved to [facility] from [place] after her in April of 2021. She reported she had not been taking very good care of herself. She presently lives at [facility]. She a long-term friend who lives in the region and encouraged her to move from [place]. Patient was admitted for COPD exacerbation as well as possible CHF exacerbation. She was also found to have a hemoglobin A1c greater than 12 and was initiated on Lantus and sliding scale. Discharge Providers Provider Date of admission: 11/22/21 10:10 Discharge Date: 11/25/21 Primary care physician: Cristo Quevedo MD Consults: 11/21/21 14:31 Consult to Dietitian, Adult Routine Comment: Reason For Exam: poorly controlled dm 11/21/21 15:31 Consult to Respiratory Therapy Evaluate & Treat Comment: Physician Instructions: Evaluate and treat 11/23/21 10:49 Consult to Physical Therapy Evaluate & Treat Comment: Physician Instructions: Evaluate and Treat 11/25/21 13:12 Consult to Home Health Routine Comment: respiratory failure, COPD exac, new home O2 Reason For Exam: Set up RN/PT for discharge Home Discharge provider: Gris Vega MD Summary Hospital Course Discharge Diagnosis: 1. Acute hypoxic respiratory failure, chronic respiratory failure was ruled out 2. Acute on chronic systolic CHF with exacerbation 3. Diabetes mellitus type 2 with hyperglycemia 4. Class 2 obesity 5. Lichen planus Hospital Course: Patient was admitted placed on steroids, nebulizers, and azithromycin. CT pulmonary angiogram was performed which revealed no evidence of pulmonary embolus. Extensive aortic atherosclerosis was noted. Bilateral pleural effusions and pulmonary edema in the setting of cardiomegaly suggesting congestive failure. Patient did a 5 day course of prednisone which was completed on November 25. Echocardiogram was done and she was found to have an ejection fraction of 20-25% with global hypokinesis of left ventricle. Diastolic function could not be accurately assessed. Moderate MR. Trace AR. Right ventricle was normal in size and function. PASP could not be estimated. Patient was initiated on IV diuresis. She sustained a brisk diuresis, which resulted in some soft blood pressures. Diuresis was discontinued November 23 and she did receive a small fluid bolus with subsequent improvement. Patient did report prior history of hospitalization with respiratory failure requiring intubation and mechanical ventilation. She notes she was told she had congestive heart failure at that time. However, she thought that her heart and lungs were ?healed?. She did not have any additional follow-up. At discharge, she is instructed to weigh herself daily. She will be placed on sodium and restriction. She is encouraged to follow-up with [facility] [place] office. Intense were made to wean off oxygen. However, sats were 84% with ambulation at discharge. Home O2 was arranged. She did have an [employer] concentrator related to her prior illness that she moved with her from [place]. With regard to her diabetes, as noted she was placed on insulin therapy. She had not been monitoring her diet and does wish to continue with oral medications for now with follow-up in the outpatient setting for further care. She intends to sign up with diabetic education as well. Discharge she will maintain 65 g carbohydrate per meal diet. Status at Discharge Cognitive/behavioral status at discharge: at baseline, oriented Overall status at discharge: patient is progressing back to baseline Time Spent with Patient Time spent: Greater than 30 minutes Exam Vital Signs (past 8 hours): - 11/25/21 07:25 11/25/21 08:45 11/25/21 08:00 Temperature 97.5 F L Pulse Rate 98 H Respiratory Rate 20 Blood Pressure 124/64 124/64 Pulse Oximetry 94 97 Oxygen Delivery Method Nasal Cannula Oxygen Flow Rate 2 0 11/25/21 12:00 Temperature 98.2 F Pulse Rate 96 H Respiratory Rate 18 Blood Pressure 111/59 L Pulse Oximetry 91 Oxygen Delivery Method Oxygen Flow Rate 0 Oxygen Delivery Method Nasal Cannula Oxygen Flow Rate 0 Narrative Exam Narrative: GEN: Very pleasant elderly female, Alert and oriented x 3, NAD HEENT:NC, Face symmetric CHEST: Respiratory excursions symmetric, CTAB CV: RRR, no M/R/G ABD: Soft, NT/ND, BT present in all 4 quadrants, body habitus limits exam EXTR: warm, well perfused, no C/C/E lichen planus noted to bilateral lower extremities SKIN: warm and dry, no rash NEURO: Alert and oriented x 3, nonfocal Objective Labs Result Diagrams: 11/24/21 04:50 11/24/21 04:50 [facility] Medical History (Updated 11/24/21 @ 12:27 by NICO Garcia) Bladder cystocele COPD (chronic obstructive pulmonary disease) Diabetes mellitus Lichen planus Surgical History (Updated 11/24/21 @ 12:27 by NICO Garcia) History of removal of cyst Family History (Updated 11/24/21 @ 12:30 by NICO Garcia) Mother Diabetes mellitus Father MVA (motor vehicle accident) Sister Cancer Sister Alcohol poisoning Sister Tobacco dependence Drinks alcohol Social History (Updated 11/24/21 @ 12:31 by NICO Garcia) household members: none Smoking Status: Former smoker Tobacco: How many years used: 60 quit status: has quit before second hand exposure: Yes alcohol intake: current substance use type: does not use Discharge Plan Discharge Plan Patient Disposition: Home Provider Discharge Comment: Weigh yourself daily. Call MD for weight gain of 3# in 24 hours or 5# in 1 week. Limit your sodium intake to 2grams (2000 mg) per 24 hrs. Try to avoid drinking more than 2 liters of fluid (64 ounces) per day. Read labels on all packaged and canned foods. Monitor your carb intake. Goal is 65 grams of carbohydrates per meal. Limit intake of sugary foods/beverages. Change from white bread/rice/pasta to whole grain bread/brown rice/whole grain pasta. Needs referral to pulmonary rehab at d/c Discharge orders & Medications Prescriptions: New atorvastatin [Lipitor] 20 mg Tablet 40 mg PO BEDTIME Qty: 60 0RF aspirin 81 mg Tablet,Delayed Release (Dr/Ec) 81 mg PO DAILY Qty: 30 0RF guaifenesin [Mucus Relief ER] 600 mg Tablet Extended Release 12hr 600 mg PO BID Qty: 20 0RF lisinopril 5 mg Tablet 2.5 mg PO DAILY Qty: 15 0RF azithromycin [Zithromax Z-Jozef] 250 mg Tablet 250 mg PO DAILY Qty: 4 0RF Combivent Respimat 20-100 mcg/actuation mist 1 puff inhalation QID Qty: 4 0RF Rx Instructions: space evenly during waking hours furosemide 20 mg tablet 20 mg PO DAILY Qty: 30 0RF potassium chloride 10 mEq tablet extended release 10 meq PO DAILY Qty: 30 0RF Continued (DME) blood-glucose meter Misc See Rx Instructions .Route Qty: 1 1RF Rx Instructions: use to check blood sugar daily (DME) Blood Glucose Test Strip See Rx Instructions .Route Qty: 100 3RF Rx Instructions: use to test blood sugar daily (DME) lancets 25 gauge misc See Rx Instructions .Route Qty: 100 3RF Rx Instructions: use to check sugar daily glipizide 10 mg tablet extended release 24hr 10 mg PO BID Qty: 180 0RF metformin 850 mg tablet 850 mg PO TID Qty: 270 0RF albuterol sulfate [ProAir HFA] 90 mcg/actuation HFA aerosol inhaler 2 puff inhalation Q4-6H PRN (Reason: shortness of breath or wheezing) Qty: 8.5 0RF (DME) Dexcom G6 Barrel Rifler Hook Misc See Rx Instructions .ROUTE .MEDSUPPLY Qty: 1 0RF Rx Instructions: As directed (DME) Dexcom G6 Transmitter Device See Rx Instructions .ROUTE .MEDSUPPLY Qty: 1 3RF Rx Instructions: As directed (DME) Dexcom G6 Sensor Device See Rx Instructions .ROUTE .MEDSUPPLY Qty: 3 12RF Rx Instructions: As directed No Action metronidazole 500 mg tablet 500 mg PO BID Follow up/Referrals: Cristo Quevedo MD [Primary Care Provider] - Diet/Activity/Treatments Diet: Carb-consistent/Diabetic Diet comment: 2 gram sodium, fluid restriction 2000 cc/24 hrs Activity: As tolerated; work on increasing your activity level-- Home w/Home Health Oxygen: 2lpm continuously (room air ambulatory sat 84%)- work w/your PCP on weaning Other treatments: Make appointments w/cardiology (to establish care), pulmonology (to establish care), and your PCP (for follow-up); Find out when the next diabetic education classes are scheduled and sign up Visit Report/Discharge Packet Instructions: How to Take Care of Your Feet If You Have Diabetes, Home Oxygen Therapy, DI for Heart Failure, DI for Diabetes Type 2, The Importance of Counting Carbs If You Have Diabetes, What to Eat if You Have Diabetes Discharge Data Primary Care Provider: Cristo Quevedo Quality VTE Deep Vein Thrombosis/Pulmonary Embolism Present on Admission: No
== END 2021-11-25 14:00 | disposition home or self-care (01) | DRG 291 ==
LOC: ED 22:31 → AC 11-21 02:36
PROVIDERS: Emergency Medicine; Internal Medicine; Admitting Provider Nurse Practitioner Family; Emergency Provider Emergency Medicine; PCP Pediatrics; Referring Provider Emergency Medicine; Visit Provider Nurse Practitioner Family
DX: I50.21 Acute systolic (congestive) heart failure (principal); J96.01 Acute respiratory failure with hypoxia; I24.8 Other forms of acute ischemic heart disease; J44.1 Chronic obstructive pulmonary disease with (acute) exacerbation; E11.65 Type 2 diabetes mellitus with hyperglycemia; Z79.84 Long term (current) use of oral hypoglycemic drugs; Z87.891 Personal history of nicotine dependence; Z99.81 Dependence on supplemental oxygen; Z20.822 Contact with and (suspected) exposure to COVID-19
CPT/HCPCS: 36415; 36600; 71046; 71275; 80048; 80053; 80061; 81001; 82550; 82805; 82947; 82962; 83036; 83605; 83735; 83880; 84484; 85025; 85027; 85379; 87635; 93005; 93010; 93306; 94618; 94640; 94760; 96365; 96375; 97116; 97162; 97530; 99284; 99285; C9803; G0378; J1650; J1815; J1940; J2930; J3475; J7613; Q9967

== ENCOUNTER → 2021-12-02 11:59 | Outpatient (CLI) | payer OTHER, SELFPAY ==
[2021-11-22 15:37] VITALS: BMI 37.6
--- NOTE | 2021-12-02 12:02 | DI.RAD.S_ITS ---
PROCEDURE: XR CHEST 2V INDICATIONS: dec left breath sounds, past effusion TECHNIQUE: 2 views of the chest were acquired. COMPARISON: [facility], CT, CT ANGIO CHEST PE PROTOCOL, 11/22/2021, 13:05. [facility], CR, XR CHEST 2V, 11/20/2021, 15:36. FINDINGS: Surgical changes and devices: None. Lungs and pleura: There are interstitial infiltrates. Small bilateral pleural effusions may be present. No pneumothorax. Mediastinum: Mediastinal contours are normal. Heart size is mildly increased. Aortic calcification consistent with atherosclerosis. Bones and chest wall: No suspicious bony abnormalities. Soft tissues appear unremarkable. IMPRESSION: 1. Mild cardiomegaly and bilateral interstitial infiltrates most compatible with pulmonary edema secondary to congestive heart failure. Recommend clinical correlation. Dictated by: Kike Oakes M.D. on 12/02/2021 at 17:38 Approved by: Kike Oakes M.D. on 12/02/2021 at 17:41
[2021-12-02 13:20] LABS: Alanine Aminotransferase 57 IU/L (<35); Albumin 4.1 g/dL (3.5-5.0); Albumin Globulin Ratio 1.4 (1.0-2.8); Alkaline Phosphatase 108 U/L (38-126); Aspartate Aminotransferase 41 IU/L (14-36); BUN Creatinine Ratio 27.8 (6-22); Bilirubin Total 1.3 mg/dL (0.2-1.3); Blood Urea Nitrogen 15 mg/dL (7-17); Calcium 9.1 mg/dL (8.4-10.2); Carbon Dioxide 36 mmol/L (22-32); Chloride 92 mmol/L (98-107); Estimated Glomerular Filt Rate > 60 mL/min (>60); Globulin 2.9 g/dL (1.7-4.1); Glucose 320 mg/dL (80-110); HEMOLYSIS < 15 (0-50); Potassium 4.6 mmol/L (3.4-5.1); Sodium 134 mmol/L (137-145)
[2021-12-02 13:26] LABS: NT-proBNP (BNP-Adult 18+) 1700 pg/mL (<450)
[2021-12-02 13:47] LABS: TSH w/ Reflex to FT4 0.89 uIU/mL (0.47-4.68)
== END ==
PROVIDERS: PCP Pediatrics; Referring Provider Pediatrics; Visit Provider Pediatrics
DX: I50.9 Heart failure, unspecified (principal); R94.30 Abnormal result of cardiovascular function study, unspecified; J44.9 Chronic obstructive pulmonary disease, unspecified; L43.9 Lichen planus, unspecified; E11.9 Type 2 diabetes mellitus without complications; I51.7 Cardiomegaly
CPT/HCPCS: 36415; 71046; 80053; 83880; 84443

== ENCOUNTER 2021-12-21 10:59 | Emergency (ER) | payer OTHER, SELFPAY ==
[2021-11-22 15:37] VITALS: BMI 37.6
[2021-12-21] VITALS (15 sets, daily range): BP systolic 131–156; BP diastolic 58–68; PULSE 94–103; RESP 20–32; TEMP 36.7; O2SAT 96–99; BMI 37.3
--- NOTE | 2021-12-21 11:13 | DI.RAD.S_ITS ---
PROCEDURE: XR CHEST 1V INDICATIONS: chest pain TECHNIQUE: One view of the chest was acquired. COMPARISON: [facility], CT, CT ANGIO CHEST PE PROTOCOL, 11/22/2021, 13:05. [facility], CR, XR CHEST 2V, 11/20/2021, 15:36. [facility], CR, XR CHEST 2V, 12/02/2021, 12:34. FINDINGS: Surgical changes and devices: None. Lungs and pleura: Generalized interstitial prominence can be seen. No pleural effusions or pneumothorax. Mediastinum: The cardiac contours are mildly to moderately enlarged. The aorta demonstrates calcification and tortuosity. Bones and chest wall: No suspicious bony lesions. Age-appropriate bony degenerative changes are seen. Overlying soft tissues appear unremarkable. IMPRESSION: Cardiomegaly and interstitial prominence. CHF is suspected. Dictated by: Bairon Cook M.D. on 12/21/2021 at 10:38 Approved by: Bairon Cook M.D. on 12/21/2021 at 10:40
[2021-12-21 11:19] LABS: Add Manual Diff / Slide Review NO; Basophils Absolute Auto 100 /uL (0-100); Basophils Percent Auto 0.9 % (0-2); Eosinophils Absolute Auto 100 /uL (0-450); Eosinophils Percent Auto 1.2 % (2-4); Hematocrit 33.8 % (36-46); Hemoglobin 11.5 g/dL (12.0-16.0); Lymphocytes Absolute Auto 1100 /uL (1100-4500); Mean Corpuscular Hemoglobin 30.5 PG (26-34); Mean Corpuscular Volume 89.8 fL (80-100); Monocytes Absolute Auto 500 /uL (0-900); Monocytes Percent Auto 6.3 % (3-14); Neutrophils Absolute Auto 5600 /uL (1500-7000); Neutrophils Percent Auto 76.6 % (50-75); Platelet Count 238 X10^3/uL (150-400); Red Blood Cell Count 3.76 X10^6/uL (4.0-5.2); Red Cell Distribution Width 15.7 % (11.6-14.8); White Blood Cell Count 7.3 X10^3/uL (4.5-11.0)
[2021-12-21 11:27] LABS: Alanine Aminotransferase 43 IU/L (<35); Albumin Globulin Ratio 1.4 (1.0-2.8); Alkaline Phosphatase 109 U/L (38-126); Aspartate Aminotransferase 43 IU/L (14-36); BUN Creatinine Ratio 21.7 (6-22); Blood Urea Nitrogen 13 mg/dL (7-17); Calcium 8.3 mg/dL (8.4-10.2); Carbon Dioxide 37 mmol/L (22-32); Chloride 88 mmol/L (98-107); Creatine Kinase 29 U/L (30-135); Estimated Glomerular Filt Rate > 60 mL/min (>60); Globulin 2.9 g/dL (1.7-4.1); Glucose 482 mg/dL (80-110); HEMOLYSIS 46 (0-50); Lipase 46 U/L (23-300); Magnesium 1.7 mg/dL (1.6-2.3); Potassium 4.6 mmol/L (3.4-5.1); Sodium 132 mmol/L (137-145); Total Protein 6.9 g/dL (6.3-8.2)
[2021-12-21 11:38] LABS: Troponin I 0.029 ng/mL (0.01-0.034)
[2021-12-21 12:13] LABS: Appearance Urine UA CLEAR; Bilirubin Urine UA NEGATIVE (NEGATIVE); Color Urine UA YELLOW; Glucose Urine UA 3+ g/dL (Negative); Ketones Urine UA NEGATIVE (NEGATIVE); Leukocyte Esterase Urine UA NEGATIVE (NEGATIVE); Nitrite Urine UA NEGATIVE (Negative); Occult Blood Urine UA NEGATIVE (Negative); Protein Urine UA NEGATIVE (Negative); Urobilinogen Urine UA 0.2 E.U./dL (0.2)
[2021-12-21 12:19] LABS: Ketones (Beta-Hydroxybutyrate) 0.18 mmol/L (<0.27)
[2021-12-21 12:19] LABS: Bacteria Urine None Seen; RBC Urine None Seen (0-5/HPF); Squamous Epithelial Cell Urine 0-1 /HPF (0-5/HPF); WBC Urine 0-1/HPF (0-5/HPF)
[2021-12-21 12:20] LABS: Culture Indicated Urine Cult Not Indicated
[2021-12-21 12:29] LABS: HCO3 VBG 41 mmol/L (23-28); PCO2 VBG 72.4 mmHg (45-50); PO2 VBG 23 mmHg (35-45); Total CO2 VBG 43 mmol/L (24-29); pH VBG 7.36 (7.33-7.43)
[2021-12-21 12:30] LABS: Oxygen Saturation VBG 34 % (70-75)
--- NOTE | 2021-12-21 13:02 | ED_ITS ---
HPI - Chest Pain General Chief Complaint: Chest Pain Stated Complaint: Hyperglycemia Time Seen by Provider: 12/21/21 11:55 Source: patient and EMS Mode of arrival: EMS Limitations: no limitations Limitations: no limitations History of Present Illness HPI narrative: This is a 76-year-old female with known history of COPD on home O2, CHF, chronic lichen planus, diabetes and dyslipidemia. Patient moved to the area in September from [place]. She presents today for increasing shortness of breath, burning in her chest and hyperglycemia. Patient was hospitalized she states from November 21 to November 25, 2021. Patient does not always new oxygen but does use it sometimes. She states that she is had elevated blood sugars that just keep seem to be going up she has not been able to control them. She states she was on prednisone in the hospital she does not think that she is on it anymore. Patient takes glipizide and metformin but denies any other diabetic medications. She denies fevers or chills. She states when she walks she feels like she is burning all over in her chest, her arms her legs everywhere. She states when she walks or oxygen will drop down to 83% at home even with her home O2. She sometimes feels short of breath with these episodes but not always but she will often stopping take a break. She denies pressure in her chest. No syncope. No nausea, no vomiting, no diarrhea, no constipation, no urinary symptoms. She states she has a stent in her leg but no other surgeries. She was seen cardiology and pulmonology in [place] before she moved here in September. She quit smoking 3 years ago, no alcohol currently, no illicit. No known drug allergies. Her primary care is Dr. Quevedo. Related Data Previous Rx's Medication Instructions Recorded blood-glucose meter,continuous #1 ea 10/25/21 (Dexcom G6 Financial Aid Officer misc) blood-glucose sensor (Dexcom G6 #3 ea 10/25/21 Sensor device) blood-glucose transmitter (Dexcom #1 10/25/21 G6 Transmitter device) blood sugar diagnostic (Blood #100 ea 10/29/21 Glucose Test strips) blood-glucose meter #1 ea 10/29/21 lancets 25 gauge #100 ea 10/29/21 albuterol sulfate 90 mcg/actuation 2 puff inhalation Q4-6H PRN 11/11/21 aerosol inhaler (ProAir HFA) shortness of breath or wheezing #8.5 grams glipizide 10 mg tablet, extended 10 mg PO BID #180 tabs 11/11/21 release 24 hr metformin 850 mg tablet 850 mg PO TID #270 tabs 11/11/21 aspirin 81 mg tablet,delayed 81 mg PO DAILY #30 tabs 11/25/21 release guaifenesin 600 mg tablet, 600 mg PO BID #20 tabs 11/25/21 extended release 12 hr (Mucus Relief ER) ipratropium 20 mcg-albuterol 100 1 puff inhalation QID #4 grams 11/25/21 mcg/actuation mist for inhalation (Combivent Respimat) atorvastatin 40 mg tablet 40 mg PO BEDTIME #90 tabs 12/02/21 furosemide 20 mg tablet 20 mg PO DAILY #90 tabs 12/02/21 metronidazole 500 mg tablet 500 mg PO BID #180 tabs 12/02/21 potassium chloride 10 mEq 10 meq PO DAILY #90 tabs 12/02/21 tablet,extended release fluconazole 150 mg tablet 150 mg PO Q3D 2 doses #2 tabs 12/06/21 (Diflucan) furosemide 40 mg tablet (Lasix) 40 mg PO DAILY #7 tabs 12/21/21 insulin glargine 100 unit/mL (3 10 unit (0.1 mL) SUBCUT QPM #15 mL 12/21/21 mL) subcutaneous pen (Lantus Solostar U-100 Insulin) Allergies Allergy/AdvReac Type Severity Reaction Status Date / Time No Known Drug Allergies Allergy Unverified 12/02/21 11:25 Review of Systems Review of Systems ROS Unobtainable: All systems reviewed & are unremarkable except as noted in HPI and below Patient History Medical History Bladder cystocele CHF (congestive heart failure) COPD (chronic obstructive pulmonary disease) Diabetes mellitus Lichen planus Low left ventricular ejection fraction Vaginal candidiasis Surgical History History of removal of cyst Family History Mother Diabetes mellitus Father MVA (motor vehicle accident) Sister Cancer Sister Alcohol poisoning Sister Tobacco dependence Drinks alcohol Social History household members: none Smoking Status: Former smoker Tobacco: How many years used: 60 quit status: has quit before second hand exposure: Yes alcohol intake: current substance use type: does not use Smoking Status: Former smoker alcohol intake frequency: holidays/special occasions only Substance Use Type: does not use Exam Narrative Exam Narrative: GENERAL: Alert and oriented x three, female in mild distress. HEENT: Head normocephalic, atraumatic, EOMI, pupils reactive, face symmetric, moist mucous membranes NECK: Supple, full range of motion CARDIOVASCULAR: Regular rate and rhythm without murmurs, rubs or gallops. No JVD. No swelling bilateral lower extremities. RESPIRATORY: Breath sounds equal bilaterally, bilateral rales, no rhonchi. No tachypnea at rest. Patient does have nasal cannula in place. ABDOMEN: Soft, nontender. Normoactive bowel sounds all 4 quadrants. No guarding or rebound, rigidity, no mass : No CVA tenderness EXTREMITIES: Normal range of motion, no clubbing or edema. Neurovascularly intact NEUROLOGICAL: Cranial nerves II through XII grossly intact. Moving all extremities SKIN: Warm, dry, no petechiae, no rashes. Patient has whitish discolored plaques on bilateral lower extremities over the shins and calves. Initial Vital Signs Initial Vital Signs: Vital Signs Pulse Rate 101 H 12/21/21 11:05 Respiratory Rate 24 12/21/21 11:05 Pulse Oximetry 97 12/21/21 11:05 Course Orders Ordered: ED Orders 12/21/21 11:00 Complete Blood Count AUTO DIFF Stat Comprehensive Metabolic Panel Stat Ketones (Beta-Hydroxybutyrate) Stat Lipase Stat Magnesium Stat Troponin & CK Cardiac Panel Stat 12/21/21 11:13 XR chest 1V Stat EKG-12 Lead Stat 12/21/21 11:40 Urinalysis and Microscopic Stat 12/21/21 12:00 COVID19 -Nasal RAPID/Pre-Proc Stat 12/21/21 12:20 VBG [Venous Blood Gas] Stat 12/21/21 13:03 EKG-12 Lead Stat 12/21/21 13:21 BNP [NT-proBNP (BNP-Adult 18+)] Stat 12/21/21 13:27 Troponin & CK Cardiac Panel Stat Discontinued Medications Furosemide (Furosemide 40 Mg/4 Ml Vial) 40 mg IV NOW ONE Stop: 12/21/21 14:34 Last Admin: 12/21/21 15:03 Dose: 40 mg Documented By: AT Sodium Chloride (Normal Saline 0.9%) 1,000 mls @ 1,000 mls/hr IV BOLUS ONE Stop: 12/21/21 15:12 Last Admin: 12/21/21 14:26 Dose: Not Given Documented By: AT Insulin Human Regular (Insulin Regular 100 Unit/Ml 3 Ml Vial) 5 unit SUBCUT NOW ONE Stop: 12/21/21 14:34 Last Admin: 12/21/21 15:03 Dose: 5 unit Documented By: AT Co-signed By: CARLOS Vital Signs Vital signs: Vital Signs - 8 hr 12/21/21 11:31 12/21/21 11:31 12/21/21 12:00 Pulse Rate 100 H 99 H Respiratory Rate 29 H 20 Blood Pressure 154/66 H Pulse Oximetry 98 99 Oxygen Delivery Method Nasal Cannula Oxygen Flow Rate 2 12/21/21 12:30 12/21/21 13:00 12/21/21 13:30 Pulse Rate 97 H 94 H 96 H Respiratory Rate 27 H 24 32 H Blood Pressure Pulse Oximetry 98 98 97 Oxygen Delivery Method Room Air Oxygen Flow Rate 12/21/21 14:00 12/21/21 14:30 12/21/21 15:00 Pulse Rate 95 H 94 H 95 H Respiratory Rate 24 27 H 23 Blood Pressure Pulse Oximetry 96 96 97 Oxygen Delivery Method Room Air Oxygen Flow Rate 12/21/21 15:30 12/21/21 16:00 12/21/21 16:07 Pulse Rate 99 H 103 H 99 H Respiratory Rate 25 H Blood Pressure Pulse Oximetry 96 98 98 Oxygen Delivery Method Nasal Cannula Oxygen Flow Rate 2 12/21/21 16:19 Pulse Rate Respiratory Rate Blood Pressure 131/58 L Pulse Oximetry Oxygen Delivery Method Oxygen Flow Rate MDM - Chest Pain Lab Data Result diagrams: 12/21/21 11:00 12/21/21 11:00 Labs: Lab Results 12/21/21 12/21/21 12/21/21 Range/Units 11:00 11:00 11:00 WBC 7.3 (4.5-11.0) X10^3/uL RBC 3.76 L (4.0-5.2) X10^6/uL Hgb 11.5 L (12.0-16.0) g/dL Hct 33.8 L (36-46) % MCV 89.8 (80-100) fL MCH 30.5 (26-34) PG MCHC 34.0 (30-36) % RDW 15.7 H (11.6-14.8) % Plt Count 238 (150-400) X10^3/uL Neut % (Auto) 76.6 H (50-75) % Lymph % (Auto) 15.0 L (25-40) % Cottle % (Auto) 6.3 (3-14) % Eos % (Auto) 1.2 L (2-4) % Baso % (Auto) 0.9 (0-2) % Neut # (Auto) 5600 (9399-8416) /uL Lymph # (Auto) 1100 (9505-3048) /uL Cottle # (Auto) 500 (0-900) /uL Eos # (Auto) 100 (0-450) /uL Baso # (Auto) 100 (0-100) /uL VBG pH (7.33-7.43) VBG pCO2 (45-50) mmHg VBG pO2 (35-45) mmHg VBG HCO3 (23-28) mmol/L VBG Total CO2 (24-29) mmol/L VBG O2 Saturation (70-75) % VBG Base Excess (0-4) mmol/L Sodium 132 L (137-145) mmol/L Potassium 4.6 (3.4-5.1) mmol/L Chloride 88 L (98-107) mmol/L Carbon Dioxide 37 H (22-32) mmol/L BUN 13 (7-17) mg/dL Creatinine 0.60 (0.52-1.04) mg/dL Estimated GFR > 60 (>60) mL/min BUN/Creatinine Ratio 21.7 (6-22) Glucose 482 H (80-110) mg/dL Calcium 8.3 L (8.4-10.2) mg/dL Magnesium 1.7 (1.6-2.3) mg/dL Total Bilirubin 1.0 (0.2-1.3) mg/dL AST 43 H (14-36) IU/L ALT 43 H (<35) IU/L Alkaline Phosphatase 109 (38-126) U/L Total Creatine Kinase 29 L (30-135) U/L CK-MB (CK-2) TNP CK-MB (CK-2) Rel Index TNP Troponin I 0.029 (0.01-0.034) ng/mL NT-Pro-B Natriuret Pep (<450) pg/mL Total Protein 6.9 (6.3-8.2) g/dL Albumin 4.0 (3.5-5.0) g/dL Globulin 2.9 (1.7-4.1) g/dL Albumin/Globulin Ratio 1.4 (1.0-2.8) Lipase 46 (23-300) U/L Urine Color Urine Appearance Urine pH (4.5-8.0) Ur Specific Amite (1.000-1.035) Urine Protein (Negative) Urine Glucose (UA) (Negative) g/dL Urine Ketones (NEGATIVE) Urine Occult Blood (Negative) Urine Nitrate (Negative) Urine Bilirubin (NEGATIVE) Urine Urobilinogen (0.2) E.U./dL Ur Leukocyte Esterase (NEGATIVE) Urine RBC (0-5/HPF) Urine WBC (0-5/HPF) Ur Squamous Epith Cells (0-5/HPF) Urine Bacteria (None) Ur Culture Indicated? Ketones 0.18 (<0.27) mmol/L SARS-CoV-2 (PCR) (Negative) 12/21/21 12/21/21 12/21/21 Range/Units 11:40 12:00 12:20 WBC (4.5-11.0) X10^3/uL RBC (4.0-5.2) X10^6/uL Hgb (12.0-16.0) g/dL Hct (36-46) % MCV (80-100) fL MCH (26-34) PG MCHC (30-36) % RDW (11.6-14.8) % Plt Count (150-400) X10^3/uL Neut % (Auto) (50-75) % Lymph % (Auto) (25-40) % Cottle % (Auto) (3-14) % Eos % (Auto) (2-4) % Baso % (Auto) (0-2) % Neut # (Auto) (7772-1354) /uL Lymph # (Auto) (1761-7337) /uL Cottle # (Auto) (0-900) /uL Eos # (Auto) (0-450) /uL Baso # (Auto) (0-100) /uL VBG pH 7.36 (7.33-7.43) VBG pCO2 72.4 H (45-50) mmHg VBG pO2 23 L (35-45) mmHg VBG HCO3 41 H (23-28) mmol/L VBG Total CO2 43 H (24-29) mmol/L VBG O2 Saturation 34 L (70-75) % VBG Base Excess 15.0 H (0-4) mmol/L Sodium (137-145) mmol/L Potassium (3.4-5.1) mmol/L Chloride (98-107) mmol/L Carbon Dioxide (22-32) mmol/L BUN (7-17) mg/dL Creatinine (0.52-1.04) mg/dL Estimated GFR (>60) mL/min BUN/Creatinine Ratio (6-22) Glucose (80-110) mg/dL Calcium (8.4-10.2) mg/dL Magnesium (1.6-2.3) mg/dL Total Bilirubin (0.2-1.3) mg/dL AST (14-36) IU/L ALT (<35) IU/L Alkaline Phosphatase (38-126) U/L Total Creatine Kinase (30-135) U/L CK-MB (CK-2) CK-MB (CK-2) Rel Index Troponin I (0.01-0.034) ng/mL NT-Pro-B Natriuret Pep (<450) pg/mL Total Protein (6.3-8.2) g/dL Albumin (3.5-5.0) g/dL Globulin (1.7-4.1) g/dL Albumin/Globulin Ratio (1.0-2.8) Lipase (23-300) U/L Urine Color Yellow Urine Appearance Clear Urine pH 7.0 (4.5-8.0) Ur Specific Amite 1.010 (1.000-1.035) Urine Protein Negative (Negative) Urine Glucose (UA) 3+ H (Negative) g/dL Urine Ketones Negative (NEGATIVE) Urine Occult Blood Negative (Negative) Urine Nitrate Negative (Negative) Urine Bilirubin Negative (NEGATIVE) Urine Urobilinogen 0.2 (0.2) E.U./dL Ur Leukocyte Esterase Negative (NEGATIVE) Urine RBC None seen (0-5/HPF) Urine WBC 0-1/hpf (0-5/HPF) Ur Squamous Epith Cells 0-1 /hpf (0-5/HPF) Urine Bacteria None seen (None) Ur Culture Indicated? Cult not indicated Ketones (<0.27) mmol/L SARS-CoV-2 (PCR) Negative (Negative) 12/21/21 12/21/21 Range/Units 13:21 13:27 WBC (4.5-11.0) X10^3/uL RBC (4.0-5.2) X10^6/uL Hgb (12.0-16.0) g/dL Hct (36-46) % MCV (80-100) fL MCH (26-34) PG MCHC (30-36) % RDW (11.6-14.8) % Plt Count (150-400) X10^3/uL Neut % (Auto) (50-75) % Lymph % (Auto) (25-40) % Cottle % (Auto) (3-14) % Eos % (Auto) (2-4) % Baso % (Auto) (0-2) % Neut # (Auto) (9203-9909) /uL Lymph # (Auto) (4593-5007) /uL Cottle # (Auto) (0-900) /uL Eos # (Auto) (0-450) /uL Baso # (Auto) (0-100) /uL VBG pH (7.33-7.43) VBG pCO2 (45-50) mmHg VBG pO2 (35-45) mmHg VBG HCO3 (23-28) mmol/L VBG Total CO2 (24-29) mmol/L VBG O2 Saturation (70-75) % VBG Base Excess (0-4) mmol/L Sodium (137-145) mmol/L Potassium (3.4-5.1) mmol/L Chloride (98-107) mmol/L Carbon Dioxide (22-32) mmol/L BUN (7-17) mg/dL Creatinine (0.52-1.04) mg/dL Estimated GFR (>60) mL/min BUN/Creatinine Ratio (6-22) Glucose (80-110) mg/dL Calcium (8.4-10.2) mg/dL Magnesium (1.6-2.3) mg/dL Total Bilirubin (0.2-1.3) mg/dL AST (14-36) IU/L ALT (<35) IU/L Alkaline Phosphatase (38-126) U/L Total Creatine Kinase 26 L (30-135) U/L CK-MB (CK-2) TNP CK-MB (CK-2) Rel Index TNP Troponin I 0.022 (0.01-0.034) ng/mL NT-Pro-B Natriuret Pep 1730 H (<450) pg/mL Total Protein (6.3-8.2) g/dL Albumin (3.5-5.0) g/dL Globulin (1.7-4.1) g/dL Albumin/Globulin Ratio (1.0-2.8) Lipase (23-300) U/L Urine Color Urine Appearance Urine pH (4.5-8.0) Ur Specific Amite (1.000-1.035) Urine Protein (Negative) Urine Glucose (UA) (Negative) g/dL Urine Ketones (NEGATIVE) Urine Occult Blood (Negative) Urine Nitrate (Negative) Urine Bilirubin (NEGATIVE) Urine Urobilinogen (0.2) E.U./dL Ur Leukocyte Esterase (NEGATIVE) Urine RBC (0-5/HPF) Urine WBC (0-5/HPF) Ur Squamous Epith Cells (0-5/HPF) Urine Bacteria (None) Ur Culture Indicated? Ketones (<0.27) mmol/L SARS-CoV-2 (PCR) (Negative) Point of Care Testing Glucose POC 319 Imaging Data Chest x-ray: Radiologist's Impression: [address] [address] XRay Report Signed Patient: Elaine Colón MR#: [id number] : 1945 Acct:[id number] Age/Sex: 76 / F Date of Service: 12/21/21 Loc: ED Accession Number: [id number] ?? Procedure: XR chest 1V Ordering Provider: Anisa Weinstein D.O. PROCEDURE:? XR CHEST 1V ? INDICATIONS:? chest pain ? TECHNIQUE:? One view of the chest was acquired.? ? COMPARISON:? [facility], CT, CT ANGIO CHEST PE PROTOCOL, 11/22/2021, 13:05.? [facility], CR, XR CHEST 2V, 11/20/2021, 15:36.? [facility], CR, XR CHEST 2V, 12/02/2021, 12:34. ? FINDINGS:? ? Surgical changes and devices:? None.? ? Lungs and pleura:? Generalized interstitial prominence can be seen.? No pleural effusions or pneumothorax.? ? Mediastinum:? The cardiac contours are mildly to moderately enlarged. The aorta demonstrates calcification and tortuosity. ? Bones and chest wall:? No suspicious bony lesions.? Age-appropriate bony degenerative changes are seen. ? Overlying soft tissues appear unremarkable.? ? ? IMPRESSION:? Cardiomegaly and interstitial prominence.? CHF is suspected. ? ? Dictated by: Bairon Cook M.D. on 12/21/2021 at 10:38 ? ? Approved by: Bairon Cook M.D. on 12/21/2021 at 10:40?? ECG Data Attestation: I personally reviewed and interpreted this ECG as follows: Interpretation: Sinus rhythm premature atrial complexes. Rate of 100 MI 186 QRS 86 and QTC 469. Patient has biphasic P wave. ST she depression inverted lateral leads. Prior from 11/22/2021 appears similar. EKG 2 shows sinus rhythm premature atrial complexes rate of 90 7p are 200 QRS 88 QTC 462. Patient has similar changes to prior with no acute dynamic changes. MDM Narrative Medical decision making narrative: This is a 76-year-old female with increasing episodes of hyperglycemia who is 482 on her labs today she has an anion gap of 7 with a pH of 7.36 on her VBG. She has some hyponatremia, chloride 88, CO2 is 37. AST ALT mildly elevated trope is negative although high negative at 0.029 followed by 0.022 is not rising. Urine shows glucose but no signs of infection she is negative for COVID negative for ketones chest x-ray shows changes consistent with CHF. She is on only oral medications she does appear to be in some CHF. She is not in distress or requiring extra oxygen in bed ambulatory pulse ox was obtained Discussed with patient she likely needs to start a low-dose Lantus or have her medications adjusted in terms her diabetic medications. Patient's glucoses are actually improved she was greater than 14 on October 25, 2021 for her hemoglobin A1c and is 12.9 on November 21. She appears to trend somewhat frequently in the 300- 400 range. Glucose is improving 06/27/2018 on recheck. Patient ambulates in the department her lowest O2 is 92-91%. She has home O2. Discussed with patient Discharge Plan Departure Patient Disposition: Home Clinical Impression: Hyperglycemia, CHF (congestive heart failure), Candidiasis of vagina Instructions: DI for Heart Failure Activity Restrictions/Additional Instructions: Follow-up with your physician for recheck, talk with your physician about having ECHO ordered to evaluate your heart function. Continue to try to set up with cardiology and pulmonology as able. Increase your Lasix to 40 mg daily or 2 tablets of your 20 mg tablets daily. You may wish to to start Lantus 10 units subQ nightly, this will likely need to be adjusted by her physician to a higher dose in the future. Prescription sent to [facility] in [place]. Please return for fevers, increasing chest pain, shortness of breath, passing out, increasing swelling in her extremities, persistent vomiting, fevers or other new or concerning symptoms. Prescriptions: New insulin glargine [Lantus Solostar U-100 Insulin] 100 unit/mL (3 mL) insulin pen 10 unit SUBCUT QPM Qty: 15 0RF furosemide [Lasix] 40 mg tablet 40 mg PO DAILY Qty: 7 0RF No Action (DME) blood-glucose meter Misc See Rx Instructions .Route Qty: 1 1RF Rx Instructions: use to check blood sugar daily (DME) Blood Glucose Test Strip See Rx Instructions .Route Qty: 100 3RF Rx Instructions: use to test blood sugar daily (DME) lancets 25 gauge misc See Rx Instructions .Route Qty: 100 3RF Rx Instructions: use to check sugar daily glipizide 10 mg tablet extended release 24hr 10 mg PO BID Qty: 180 0RF metformin 850 mg tablet 850 mg PO TID Qty: 270 0RF albuterol sulfate [ProAir HFA] 90 mcg/actuation HFA aerosol inhaler 2 puff inhalation Q4-6H PRN (Reason: shortness of breath or wheezing) Qty: 8.5 0RF (DME) Dexcom G6 Financial Aid Officer Misc See Rx Instructions .ROUTE .MEDSUPPLY Qty: 1 0RF Rx Instructions: As directed (DME) Dexcom G6 Transmitter Device See Rx Instructions .ROUTE .MEDSUPPLY Qty: 1 3RF Rx Instructions: As directed (DME) Dexcom G6 Sensor Device See Rx Instructions .ROUTE .MEDSUPPLY Qty: 3 12RF Rx Instructions: As directed furosemide 20 mg tablet 20 mg PO DAILY Qty: 90 0RF potassium chloride 10 mEq tablet extended release 10 meq PO DAILY Qty: 90 0RF atorvastatin 40 mg tablet 40 mg PO BEDTIME Qty: 90 0RF metronidazole 500 mg tablet 500 mg PO BID Qty: 180 0RF fluconazole [Diflucan] 150 mg tablet 150 mg PO Q3D Qty: 2 0RF aspirin 81 mg Tablet,Delayed Release (Dr/Ec) 81 mg PO DAILY Qty: 30 0RF guaifenesin [Mucus Relief ER] 600 mg Tablet Extended Release 12hr 600 mg PO BID Qty: 20 0RF Combivent Respimat 20-100 mcg/actuation mist 1 puff inhalation QID Qty: 4 0RF Rx Instructions: space evenly during waking hours Referrals: Cristo Quevedo MD [Primary Care Provider] - Visit Report Forms: Patient Portal/API
[2021-12-21 13:34] LABS: COVID19 -Nasal RAPID Negative (Negative)
[2021-12-21 14:02] LABS: Creatine Kinase 26 U/L (30-135)
--- NOTE | 2021-12-21 14:07 | PC.NURSE ---
Pt requesting food and water, educated pt on NPO status until results are back and provider approves, pt requesting again and education reinforced. Pt states I am going to starve. Reassurance provided. Pt takes Glipizide and Metformin for DM2, does not take insulin. Updated on plan of care.
[2021-12-21 14:15] LABS: Troponin I 0.022 ng/mL (0.01-0.034)
[2021-12-21 14:32] LABS: NT-proBNP (BNP-Adult 18+) 1730 pg/mL (<450)
[2021-12-21] MEDS: FUROSEMIDE 40 MG/4 ML VIAL IV (15:03)
[2021-12-21] MEDS: INSULIN REGULAR 100 UNIT/ML 3 ML VIAL SUBCUT (15:03)
--- NOTE | 2021-12-21 16:01 | PC.NURSE ---
Pt ambulated on home amount of oxygen 2L NC, with walker. Steady gait, pt denies dizziness/CP/SOB. Lowest saturation of 91% noted.
== END 2021-12-21 17:47 | disposition home or self-care (01) ==
PROVIDERS: Emergency Provider Emergency Medicine; PCP Pediatrics
DX: E11.65 Type 2 diabetes mellitus with hyperglycemia (principal); I50.9 Heart failure, unspecified; B37.3 Candidiasis of vulva and vagina; R07.9 Chest pain, unspecified; Z20.822 Contact with and (suspected) exposure to COVID-19
CPT/HCPCS: 36415; 71045; 80053; 81001; 82009; 82550; 82805; 82962; 83690; 83735; 83880; 84484; 85025; 87635; 93005; 96372; 96374; 99284; 99285; C9803; J1940

== ENCOUNTER → 2021-12-27 10:14 | Outpatient (CLI) | payer OTHER, SELFPAY ==
[2021-11-22 15:37] VITALS: BMI 37.6
[2021-12-27 11:11] LABS: Appearance Urine UA SL CLOUDY; Bilirubin Urine UA NEGATIVE (NEGATIVE); Color Urine UA YELLOW; Glucose Urine UA 1+ g/dL (Negative); Ketones Urine UA TRACE (NEGATIVE); Leukocyte Esterase Urine UA TRACE (NEGATIVE); Nitrite Urine UA NEGATIVE (Negative); Occult Blood Urine UA 3+ (Negative); Protein Urine UA NEGATIVE (Negative); Urobilinogen Urine UA 0.2 E.U./dL (0.2)
[2021-12-27 11:27] LABS: Bacteria Urine None Seen; Culture Indicated Urine Specimen Cultured; RBC Urine 5-10/HPF (0-5/HPF); Squamous Epithelial Cell Urine 0-1 /HPF (0-5/HPF); WBC Urine 0-1/HPF (0-5/HPF)
[2021-12-27 11:44] LABS: Creatinine Urine Random 87.3 mg/dL
[2021-12-27 11:47] LABS: Microalbumi Creatinin Ratio Ur 30.9 ug/mg CR (<30); Microalbumin Urine Random 2.7 mg/dL (0-1.6)
[2021-12-27 12:04] LABS: BUN Creatinine Ratio 27.4 (6-22); Blood Urea Nitrogen 17 mg/dL (7-17); Calcium 8.8 mg/dL (8.4-10.2); Carbon Dioxide 38 mmol/L (22-32); Chloride 93 mmol/L (98-107); Estimated Glomerular Filt Rate > 60 mL/min (>60); Glucose 277 mg/dL (80-110); HEMOLYSIS < 15 (0-50); Potassium 4.2 mmol/L (3.4-5.1); Sodium 136 mmol/L (137-145)
[2021-12-27 12:09] LABS: NT-proBNP (BNP-Adult 18+) 1140 pg/mL (<450)
== END ==
PROVIDERS: PCP Pediatrics; Referring Provider Pediatrics; Visit Provider Pediatrics
DX: I50.9 Heart failure, unspecified (principal); E11.9 Type 2 diabetes mellitus without complications; J44.9 Chronic obstructive pulmonary disease, unspecified; R30.0 Dysuria
CPT/HCPCS: 36415; 80048; 81001; 82043; 82570; 83036; 83880; 87077; 87086; 87147

== ENCOUNTER → 2022-01-01 10:42 | Outpatient (CLI) | payer OTHER, SELFPAY ==
[2021-11-22 15:37] VITALS: BMI 37.6
[2022-01-02 16:03] LABS: Candida species Positive (Negative); Gardnerella vaginalis Negative (Negative); Trichomoas vaginalis Negative (Negative)
== END ==
PROVIDERS: PCP Pediatrics; Visit Provider Obstetrics & Gynecology
DX: N89.8 Other specified noninflammatory disorders of vagina (principal)
CPT/HCPCS: 87255; 87480; 87510; 87660

== ENCOUNTER → 2022-01-28 13:00 | Outpatient (CLI) | payer OTHER, SELFPAY ==
[2021-11-22 15:37] VITALS: BMI 37.6
[2022-01-28 16:00] LABS: BUN Creatinine Ratio 32.1 (6-22); Blood Urea Nitrogen 17 mg/dL (7-17); Calcium 8.6 mg/dL (8.4-10.2); Carbon Dioxide 36 mmol/L (22-32); Chloride 94 mmol/L (98-107); Estimated Glomerular Filt Rate > 60 mL/min (>60); Glucose 295 mg/dL (80-110); HEMOLYSIS < 15 (0-50); Potassium 4.3 mmol/L (3.4-5.1); Sodium 136 mmol/L (137-145)
== END ==
PROVIDERS: PCP Pediatrics; Referring Provider Internal Medicine Cardiovascular Disease; Visit Provider Internal Medicine Cardiovascular Disease
DX: I50.20 Unspecified systolic (congestive) heart failure (principal)
CPT/HCPCS: 36415; 80048

== ENCOUNTER 2022-02-01 12:35 | Observation (INO) | payer OTHER, SELFPAY ==
[2021-11-22 15:37] VITALS: BMI 37.6
[2022-02-01] VITALS (37 sets, daily range): BP systolic 89–169; BP diastolic 52–81; PULSE 74–156; RESP 14–39; TEMP 36.4–36.7; O2SAT 87–99; BMI 38.0
--- NOTE | 2022-02-01 12:52 | DI.RAD.S_ITS ---
PROCEDURE: XR CHEST 1V INDICATIONS: chest pain TECHNIQUE: One view of the chest was acquired. COMPARISON: [facility], CR, XR CHEST 2V, 12/02/2021, 12:34. [facility], CR, XR CHEST 1V, 12/21/2021, 11:12. FINDINGS: Surgical changes and devices: None. Lungs and pleura: Mild diffuse interstitial prominence. No pleural effusions or pneumothorax. Mediastinum: Mediastinal contours appear normal. Heart size is mildly enlarged and stable. Aortic atherosclerotic calcifications are present. Bones and chest wall: No suspicious bony lesions. Overlying soft tissues appear unremarkable. IMPRESSION: Mild prominence of interstitial markings may indicate mild interstitial edema. Stable cardiomegaly. Dictated by: Reji Yanez M.D. on 02/01/2022 at 13:04 Approved by: Reji Yanez M.D. on 02/01/2022 at 13:06
[2022-02-01] MEDS: SODIUM CHLORIDE 0.9% 1,000 ML 1000 ML IV (13:19)
[2022-02-01] MEDS: ASPIRIN 81 MG CHEW TAB 324 MG PO (13:20)
[2022-02-01 13:22] LABS: Add Manual Diff / Slide Review NO; Basophils Absolute Auto 100 /uL (0-100); Eosinophils Absolute Auto 100 /uL (0-450); Eosinophils Percent Auto 1.1 % (2-4); Hematocrit 33.4 % (36-46); Hemoglobin 11.1 g/dL (12.0-16.0); Lymphocytes Absolute Auto 1000 /uL (1100-4500); Lymphocytes Percent Auto 14.7 % (25-40); Mean Corpuscular HGB Conc 33.3 % (30-36); Mean Corpuscular Hemoglobin 29.7 PG (26-34); Mean Corpuscular Volume 89.3 fL (80-100); Monocytes Absolute Auto 400 /uL (0-900); Monocytes Percent Auto 6.5 % (3-14); Neutrophils Absolute Auto 5000 /uL (1500-7000); Neutrophils Percent Auto 76.7 % (50-75); Platelet Count 256 X10^3/uL (150-400); Red Blood Cell Count 3.74 X10^6/uL (4.0-5.2); Red Cell Distribution Width 14.3 % (11.6-14.8); White Blood Cell Count 6.6 X10^3/uL (4.5-11.0)
[2022-02-01 13:32] LABS: INR 1.2 (0.9-1.3); Prothrombin Time 13.5 SECONDS (10.1-12.7)
[2022-02-01 13:34] LABS: PTT Partial Thromboplastin Tim 32 SECONDS (26-36)
[2022-02-01 13:37] LABS: Alanine Aminotransferase 75 IU/L (<35); Albumin 3.9 g/dL (3.5-5.0); Albumin Globulin Ratio 1.1 (1.0-2.8); Alkaline Phosphatase 100 U/L (38-126); Aspartate Aminotransferase 61 IU/L (14-36); Bilirubin Total 1.1 mg/dL (0.2-1.3); Blood Urea Nitrogen 18 mg/dL (7-17); Calcium 8.7 mg/dL (8.4-10.2); Carbon Dioxide 35 mmol/L (22-32); Chloride 89 mmol/L (98-107); Creatine Kinase 26 U/L (30-135); Estimated Glomerular Filt Rate > 60 mL/min (>60); Globulin 3.5 g/dL (1.7-4.1); Glucose 393 mg/dL (80-110); HEMOLYSIS < 15 (0-50); Lipase 37 U/L (23-300); Magnesium 1.5 mg/dL (1.6-2.3); Potassium 4.7 mmol/L (3.4-5.1); Sodium 134 mmol/L (137-145); Total Protein 7.4 g/dL (6.3-8.2)
[2022-02-01 13:48] LABS: NT-proBNP (BNP-Adult 18+) 2830 pg/mL (<450); Troponin I 0.061 ng/mL (0.01-0.034)
[2022-02-01] MEDS: dilTIAZem 5 MG/ML SDV 10 MG IV ×2 (14:19→17:10)
[2022-02-01 15:42] LABS: COVID19 -Nasal RAPID Negative (Negative)
[2022-02-01 15:46] LABS: Troponin I 0.079 ng/mL (0.01-0.034)
--- NOTE | 2022-02-01 16:24 | ED.ARRPALP ---
HPI - Arrhythmia/Palpitations General Chief Complaint: Arrhythmia/Palpitations Stated Complaint: heart is racing/cant catch breath Time Seen by Provider: 02/01/22 12:52 Source: patient Mode of arrival: Wheelchair Limitations: no limitations History of Present Illness HPI narrative: This is a 76-year-old female with known COPD on home O2, possible CHF, insulin-dependent diabetes, lichen planus and complaint of increasing shortness of breath, swelling in her lower extremities and noted her heart rate has been fast up to 160s and 180s when she checks her oxygen with her pulse oximeter at home. Patient states she has not been increasing her O2 requirements but has had increasing shortness of breath, no chest pain or pressure, no lightheadedness, no syncope, patient states legs have been increasingly swollen, no nausea vomiting, patient denies fevers or chills but had some mild respiratory congestion recently. Patient has found she is had increasing orthopnea but does normally have to sit or sleep upright. She is on aspirin daily but no other blood thinners. She states someone has talked to her about Eliquis in the past. She is on a statin, recently on diuretic states she got some new medications from a petroleum geology faculty member but does not know the name or whether out of. Patient states she is supposed to move on February 23 back to [place]. Related Data Home Medications Medication Instructions Recorded Confirmed fluconazole 150 mg tablet 150 mg PO QWEEK 02/01/22 02/01/22 (Diflucan) losartan 25 mg tablet 12.5 mg PO QAM 02/01/22 02/01/22 metformin 850 mg tablet 850 mg PO TID 02/01/22 02/01/22 metoprolol succinate 25 mg 12.5 mg PO DAILY 02/01/22 02/01/22 tablet,extended release 24 hr spironolactone 25 mg tablet 12.5 mg PO QAM 02/01/22 02/01/22 Previous Rx's Medication Instructions Recorded blood-glucose meter,continuous #1 ea 10/25/21 (Dexcom G6 Educational Psychology Professor misc) blood-glucose sensor (Dexcom G6 #3 ea 10/25/21 Sensor device) blood-glucose transmitter (Dexcom #1 ea 10/25/21 G6 Transmitter device) blood sugar diagnostic (Blood #100 ea 10/29/21 Glucose Test strips) blood-glucose meter #1 ea 10/29/21 lancets 25 gauge #100 ea 10/29/21 albuterol sulfate 90 mcg/actuation 2 puff inhalation Q4-6H PRN 11/11/21 aerosol inhaler (ProAir HFA) shortness of breath or wheezing #8.5 grams glipizide 10 mg tablet, extended 10 mg PO BID #180 tabs 11/11/21 release 24 hr aspirin 81 mg tablet,delayed 81 mg PO DAILY #30 tabs 11/25/21 release guaifenesin 600 mg tablet, 600 mg PO BID #20 tabs 11/25/21 extended release 12 hr (Mucus Relief ER) metronidazole 500 mg tablet 500 mg PO BID #180 tabs 12/02/21 insulin glargine 100 unit/mL (3 10 unit (0.1 mL) SUBCUT QPM #15 mL 12/21/21 mL) subcutaneous pen (Lantus Solostar U-100 Insulin) clobetasol 0.05 % topical ointment 1 applic topical .COMPLEX #30 grams 01/01/22 Allergies Allergy/AdvReac Type Severity Reaction Status Date / Time No Known Drug Allergies Allergy Verified 02/01/22 12:44 Review of Systems Review of Systems ROS Unobtainable: All systems reviewed & are unremarkable except as noted in HPI and below Patient History Medical History Bladder cystocele CHF (congestive heart failure) COPD (chronic obstructive pulmonary disease) Diabetes mellitus IDDM (insulin dependent diabetes mellitus) Lichen planus Low left ventricular ejection fraction Vaginal candidiasis Surgical History History of removal of cyst Family History Mother Diabetes mellitus Father MVA (motor vehicle accident) Sister Cancer Sister Alcohol poisoning Sister Tobacco dependence Drinks alcohol Social History household members: none Smoking Status: Former smoker Tobacco: How many years used: 60 quit status: has quit before second hand exposure: Yes alcohol intake: current substance use type: does not use Smoking Status: Former smoker alcohol intake frequency: holidays/special occasions only Substance Use Type: does not use Exam Narrative Exam Narrative: GENERAL: Alert and oriented x three, elderly female in [id number] distress. Sitting upright she is quite uncomfortable lying back in the bed. HEENT: Head normocephalic, atraumatic, EOMI, pupils reactive, face symmetric, moist mucous membranes nasal cannula in place NECK: Supple, full range of motion CARDIOVASCULAR: Irregularly irregular rate and rhythm without murmurs, rubs or gallops. Positive JVD. Bilateral lower extremity swelling. RESPIRATORY: Breath sounds equal bilaterally, no wheezes, patient has crackles bilateral bases, no rhonchi. Mild tachypnea with speech but able to speak in full sentences. ABDOMEN: Soft, nontender. Normoactive bowel sounds all 4 quadrants. No guarding or rebound, rigidity, no mass : No CVA tenderness EXTREMITIES: Normal range of motion, no clubbing or edema. Neurovascularly intact NEUROLOGICAL: Cranial nerves II through XII grossly intact. Moving all extremities SKIN: Warm, dry, no petechiae, no rashes. Patient has significant plaque that silvery with discoloration with occasional erythematous patches on bilateral lower extremities. Initial Vital Signs Initial Vital Signs: Vital Signs Temperature 97.7 F 02/01/22 12:41 Pulse Rate 151 H 02/01/22 12:41 Respiratory Rate 18 02/01/22 12:41 Blood Pressure 115/55 L 02/01/22 12:41 Pulse Oximetry 94 02/01/22 12:41 Oxygen Delivery Method 02/01/22 12:41 Oxygen Flow Rate 2 02/01/22 12:41 Course Orders Ordered: ED Orders 02/01/22 12:52 XR chest 1V Stat EKG-12 Lead Stat 02/01/22 13:10 A1C [Hemoglobin A1C% w Est Avg Glu] Urgent Complete Blood Count AUTO DIFF Stat Comprehensive Metabolic Panel Stat Lipase Stat MAG [Magnesium] Stat NT-proBNP (BNP-Adult 18+) Stat Partial Thromboplastin Time Stat Prothrombin Time INR Stat TSH w/ Reflex to FT4 Urgent Troponin & CK Cardiac Panel Stat 02/01/22 15:17 Trop I [Troponin I] Stat 02/01/22 15:22 COVID19 -Nasal RAPID/Pre-Proc Stat 02/01/22 17:08 Consult to Dietitian, Adult Urgent 02/01/22 17:16 RT Consult Eval and Treat NOW 02/01/22 18:18 Urinalysis and Microscopic Urgent 02/01/22 21:00 Troponin I Q6H 02/02/22 03:00 Troponin I Q6H 02/02/22 05:00 BMP [Basic Metabolic Panel] DAILY CBC Auto Diff [Complete Blood Count AUTO DIFF] DAILY Magnesium DAILY 02/03/22 05:00 BMP [Basic Metabolic Panel] DAILY CBC Auto Diff [Complete Blood Count AUTO DIFF] DAILY Magnesium DAILY 02/04/22 05:00 BMP [Basic Metabolic Panel] DAILY CBC Auto Diff [Complete Blood Count AUTO DIFF] DAILY Magnesium DAILY Acetaminophen (Acetaminophen 325 Mg Tablet) 650 mg PO Q6HR PRN PRN Reason: Fever/Mild Pain (1-3) Albuterol (Albuterol 2.5 Mg/3 Ml Neb (Adult)) 2.5 mg INH [id number] PRN PRN Reason: Shortness Of Breath Albuterol/Ipratropium (Albuterol/Ipratropium 3 Ml Ampul) 3 ml INH [id number] ANNALISE Apixaban (Apixaban 5 Mg Tablet) 5 mg PO BID ANNALISE Dextrose (Dextrose 50 % In Water 25 Gm/50 Ml Syringe) 25 gm IV PRN PRN PRN Reason: Hypoglycemia Furosemide (Furosemide 40 Mg/4 Ml Vial) 40 mg IV BID ANNALISE Guaifenesin (Guaifenesin Er 600 Mg Tab) 600 mg PO BID ANNALISE DILTIAZEM (Diltiazem 125 Mg/125 Ml-D5w) 125 mg in 125 mls @ 5 mls/hr IV TITRATE ANNALISE; Protocol Last Titration: 02/01/22 18:18 Dose: 10 mg/hr, 10 mls/hr Documented By: Titration: 02/01/22 17:48 Dose: 10 mg/hr, 10 mls/hr Documented By: Admin: 02/01/22 17:12 Dose: 5 mg/hr, 5 mls/hr Documented By: CARLOS Magnesium Sulfate (Magnesium Sulfate) 4 gm in 100 mls @ 25 mls/hr IV NOW ONE Stop: 02/01/22 21:07 Last Infusion: 02/01/22 18:19 Dose: 25 mls/hr Documented By: CARLOS Co-signed By: NORY Admin: 02/01/22 17:45 Dose: 25 mls/hr Documented By: RLS Co-signed By: AT Insulin Glargine (Insulin Glargine 100 Unit/Ml 3ml Pen) 15 unit SUBCUT 2100 [facility] Insulin Human Lispro (Insulin Lispro 100 Unit/Ml 3ml Vial) 0 unit SUBCUT ACHS ANNALISE; Protocol Losartan Potassium (Losartan 25 Mg Tablet) 12.5 mg PO DAILY [facility] Last Admin: 02/01/22 19:10 Dose: 12.5 mg Documented By: XIOMARA Spironolactone (Spironolactone 25 Mg Tablet) 12.5 mg PO DAILY [facility] Last Admin: 02/01/22 19:10 Dose: 12.5 mg Documented By: XIOMARA Discontinued Medications Albuterol/Ipratropium (Albuterol/Ipratropium 3 Ml Ampul) 3 ml INH RTQ6HR PRN PRN Reason: Shortness Of Breath Last Admin: 02/01/22 17:49 Dose: 3 ml Documented By: ANGLE Aspirin (Aspirin 81 Mg Chew Tab) 324 mg PO NOW ONE Stop: 02/01/22 12:53 Last Admin: 02/01/22 13:20 Dose: 324 mg Documented By: CARLOS Diltiazem HCl (Diltiazem 5 Mg/Ml Sdv) 10 mg IV NOW ONE Stop: 02/01/22 14:12 Last Admin: 02/01/22 14:19 Dose: 10 mg Documented By: CARLOS Diltiazem HCl (Diltiazem 5 Mg/Ml Sdv) 10 mg IV NOW ONE Stop: 02/01/22 17:04 Last Admin: 02/01/22 17:10 Dose: 10 mg Documented By: CARLOS Furosemide (Furosemide 40 Mg/4 Ml Vial) 40 mg IV NOW ONE Stop: 02/01/22 17:09 Last Admin: 02/01/22 17:25 Dose: 40 mg Documented By: CARLOS Furosemide (Furosemide 40 Mg/4 Ml Vial) 40 mg IV BID [facility] Furosemide (Furosemide 40 Mg/4 Ml Vial) 40 mg IV DAILY [facility] Sodium Chloride (Normal Saline 0.9%) 1,000 mls @ 1,000 mls/hr IV BOLUS ONE Stop: 02/01/22 13:51 Last Infusion: 02/01/22 14:36 Dose: 0 mls/hr Documented By: Admin: 02/01/22 13:19 Dose: 1,000 mls/hr Documented By: CARLOS Consultations Consultation #1: Dr. Valero, hospitalist accepts for admission to ICU on adult drip. He notes patient does have decreased EF on prior echo. Time: 17:12 Vital Signs Vital signs: Vital Signs - 8 hr 02/01/22 12:41 02/01/22 14:19 02/01/22 13:03 Temperature 97.7 F Pulse Rate 151 H 147 H 156 H Respiratory Rate 18 27 H Blood Pressure 115/55 L 109/62 Pulse Oximetry 94 99 Oxygen Delivery Method Nasal Cannula Nasal Cannula Oxygen Flow Rate 2 2 02/01/22 13:30 02/01/22 13:30 02/01/22 14:00 Temperature Pulse Rate 153 H Respiratory Rate 22 Blood Pressure 127/62 109/62 Pulse Oximetry 99 Oxygen Delivery Method Oxygen Flow Rate 02/01/22 14:00 02/01/22 14:30 02/01/22 14:30 Temperature Pulse Rate 145 H 118 H Respiratory Rate 22 31 H Blood Pressure 105/58 L Pulse Oximetry 95 95 Oxygen Delivery Method Oxygen Flow Rate 02/01/22 15:00 02/01/22 15:00 02/01/22 15:30 Temperature Pulse Rate 132 H 143 H Respiratory Rate 38 H 34 H Blood Pressure 110/61 Pulse Oximetry 94 96 Oxygen Delivery Method Nasal Cannula Oxygen Flow Rate 2 02/01/22 17:10 02/01/22 16:00 02/01/22 16:30 Temperature Pulse Rate 156 H 133 H 126 H Respiratory Rate 36 H 25 H Blood Pressure 115/81 Pulse Oximetry 97 98 Oxygen Delivery Method Oxygen Flow Rate 02/01/22 17:00 02/01/22 17:04 02/01/22 17:05 Temperature Pulse Rate 155 H 151 H Respiratory Rate 31 H 30 H Blood Pressure 115/81 Pulse Oximetry 97 99 Oxygen Delivery Method Oxygen Flow Rate 02/01/22 17:05 Temperature Pulse Rate 149 H Respiratory Rate 34 H Blood Pressure Pulse Oximetry 99 Oxygen Delivery Method Oxygen Flow Rate MDM - Arrhythmia/Palpitations Lab Data Result diagrams: 02/01/22 13:10 02/01/22 13:10 Labs: Lab Results 02/01/22 02/01/22 02/01/22 Range/Units 13:10 13:10 13:10 WBC 6.6 (4.5-11.0) X10^3/uL RBC 3.74 L (4.0-5.2) X10^6/uL Hgb 11.1 L (12.0-16.0) g/dL Hct 33.4 L (36-46) % MCV 89.3 (80-100) fL MCH 29.7 (26-34) PG MCHC 33.3 (30-36) % RDW 14.3 (11.6-14.8) % Plt Count 256 (150-400) X10^3/uL Neut % (Auto) 76.7 H (50-75) % Lymph % (Auto) 14.7 L (25-40) % Winkler % (Auto) 6.5 (3-14) % Eos % (Auto) 1.1 L (2-4) % Baso % (Auto) 1.0 (0-2) % Neut # (Auto) 5000 (7764-1725) /uL Lymph # (Auto) 1000 L (9149-0258) /uL Winkler # (Auto) 400 (0-900) /uL Eos # (Auto) 100 (0-450) /uL Baso # (Auto) 100 (0-100) /uL PT 13.5 H (10.1-12.7) SECONDS INR 1.2 (0.9-1.3) APTT 32 (26-36) SECONDS Sodium 134 L (137-145) mmol/L Potassium 4.7 (3.4-5.1) mmol/L Chloride 89 L (98-107) mmol/L Carbon Dioxide 35 H (22-32) mmol/L BUN 18 H (7-17) mg/dL Creatinine 0.60 (0.52-1.04) mg/dL Estimated GFR > 60 (>60) mL/min BUN/Creatinine Ratio 30.0 H (6-22) Glucose 393 H (80-110) mg/dL Hemoglobin A1c (4.0-6.0) % Calcium 8.7 (8.4-10.2) mg/dL Magnesium 1.5 L (1.6-2.3) mg/dL Total Bilirubin 1.1 (0.2-1.3) mg/dL AST 61 H (14-36) IU/L ALT 75 H (<35) IU/L Alkaline Phosphatase 100 (38-126) U/L Total Creatine Kinase 26 L (30-135) U/L CK-MB (CK-2) TNP CK-MB (CK-2) Rel Index TNP Troponin I 0.061 H (0.01-0.034) ng/mL NT-Pro-B Natriuret Pep 2830 H (<450) pg/mL Total Protein 7.4 (6.3-8.2) g/dL Albumin 3.9 (3.5-5.0) g/dL Globulin 3.5 (1.7-4.1) g/dL Albumin/Globulin Ratio 1.1 (1.0-2.8) Lipase 37 (23-300) U/L TSH (0.47-4.68) uIU/mL SARS-CoV-2 (PCR) (Negative) 02/01/22 02/01/22 02/01/22 Range/Units 13:10 13:10 15:17 WBC (4.5-11.0) X10^3/uL RBC (4.0-5.2) X10^6/uL Hgb (12.0-16.0) g/dL Hct (36-46) % MCV (80-100) fL MCH (26-34) PG MCHC (30-36) % RDW (11.6-14.8) % Plt Count (150-400) X10^3/uL Neut % (Auto) (50-75) % Lymph % (Auto) (25-40) % Winkler % (Auto) (3-14) % Eos % (Auto) (2-4) % Baso % (Auto) (0-2) % Neut # (Auto) (1082-8833) /uL Lymph # (Auto) (1015-1745) /uL Winkler # (Auto) (0-900) /uL Eos # (Auto) (0-450) /uL Baso # (Auto) (0-100) /uL PT (10.1-12.7) SECONDS INR (0.9-1.3) APTT (26-36) SECONDS Sodium (137-145) mmol/L Potassium (3.4-5.1) mmol/L Chloride (98-107) mmol/L Carbon Dioxide (22-32) mmol/L BUN (7-17) mg/dL Creatinine (0.52-1.04) mg/dL Estimated GFR (>60) mL/min BUN/Creatinine Ratio (6-22) Glucose (80-110) mg/dL Hemoglobin A1c 8.1 H (4.0-6.0) % Calcium (8.4-10.2) mg/dL Magnesium (1.6-2.3) mg/dL Total Bilirubin (0.2-1.3) mg/dL AST (14-36) IU/L ALT (<35) IU/L Alkaline Phosphatase (38-126) U/L Total Creatine Kinase (30-135) U/L CK-MB (CK-2) CK-MB (CK-2) Rel Index Troponin I 0.079 H (0.01-0.034) ng/mL NT-Pro-B Natriuret Pep (<450) pg/mL Total Protein (6.3-8.2) g/dL Albumin (3.5-5.0) g/dL Globulin (1.7-4.1) g/dL Albumin/Globulin Ratio (1.0-2.8) Lipase (23-300) U/L TSH 0.70 (0.47-4.68) uIU/mL SARS-CoV-2 (PCR) (Negative) 02/01/22 Range/Units 15:22 WBC (4.5-11.0) X10^3/uL RBC (4.0-5.2) X10^6/uL Hgb (12.0-16.0) g/dL Hct (36-46) % MCV (80-100) fL MCH (26-34) PG MCHC (30-36) % RDW (11.6-14.8) % Plt Count (150-400) X10^3/uL Neut % (Auto) (50-75) % Lymph % (Auto) (25-40) % Winkler % (Auto) (3-14) % Eos % (Auto) (2-4) % Baso % (Auto) (0-2) % Neut # (Auto) (5060-0285) /uL Lymph # (Auto) (2790-3926) /uL Winkler # (Auto) (0-900) /uL Eos # (Auto) (0-450) /uL Baso # (Auto) (0-100) /uL PT (10.1-12.7) SECONDS INR (0.9-1.3) APTT (26-36) SECONDS Sodium (137-145) mmol/L Potassium (3.4-5.1) mmol/L Chloride (98-107) mmol/L Carbon Dioxide (22-32) mmol/L BUN (7-17) mg/dL Creatinine (0.52-1.04) mg/dL Estimated GFR (>60) mL/min BUN/Creatinine Ratio (6-22) Glucose (80-110) mg/dL Hemoglobin A1c (4.0-6.0) % Calcium (8.4-10.2) mg/dL Magnesium (1.6-2.3) mg/dL Total Bilirubin (0.2-1.3) mg/dL AST (14-36) IU/L ALT (<35) IU/L Alkaline Phosphatase (38-126) U/L Total Creatine Kinase (30-135) U/L CK-MB (CK-2) CK-MB (CK-2) Rel Index Troponin I (0.01-0.034) ng/mL NT-Pro-B Natriuret Pep (<450) pg/mL Total Protein (6.3-8.2) g/dL Albumin (3.5-5.0) g/dL Globulin (1.7-4.1) g/dL Albumin/Globulin Ratio (1.0-2.8) Lipase (23-300) U/L TSH (0.47-4.68) uIU/mL SARS-CoV-2 (PCR) Negative (Negative) Imaging Data Chest x-ray: Radiologist's Impresson: [address] [address] XRay Report Signed Patient: Elaine Colón MR#: [id number] : 1945 Acct:[id number] Age/Sex: 76 / F Date of Service: 02/01/22 Loc: ED Accession Number: [id number] ?? Procedure: XR chest 1V Ordering Provider: Anisa Weinstein D.O. PROCEDURE:? XR CHEST 1V ? INDICATIONS:? chest pain ? TECHNIQUE:? One view of the chest was acquired.? ? COMPARISON:? [facility], CR, XR CHEST 2V, 12/02/2021, 12:34.? [facility], CR, XR CHEST 1V, 12/21/2021, 11:12. ? FINDINGS:? ? Surgical changes and devices:? None.? ? Lungs and pleura:? Mild diffuse interstitial prominence.? No pleural effusions or pneumothorax.? ? Mediastinum:? Mediastinal contours appear normal.? Heart size is mildly enlarged and stable.? Aortic atherosclerotic calcifications are present. ? Bones and chest wall:? No suspicious bony lesions.? Overlying soft tissues appear unremarkable.? ? IMPRESSION:? Mild prominence of interstitial markings may indicate mild interstitial edema.? Stable cardiomegaly. ? ? Dictated by: Reji Yanez M.D. on 02/01/2022 at 13:04 ? ? Approved by: Reji Yanez M.D. on 02/01/2022 at 13:06?? ECG Data Attestation: I personally reviewed and interpreted this ECG as follows: Interpretation: AFib with RVR, rate of 145 QRS 86 QTC [address] No significant ST elevation appreciated comparison to priors. MDM Narrative Medical decision making narrative: 76-year-old female comes emergency department with increasing shortness of breath, swelling of her lower extremities and orthopnea with known COPD, some CHF history and appears to be in AFib with RVR patient does not have any ST elevation, no active chest pain but does feel short of breath. She does not have increasing O2 requirements she is normally on her home O2. Patient has indeterminate troponin x2 slightly trending upwards, elevated BNP with changes consistent with CHF. Discussed with hospitalist who accepts. Patient did respond to diltiazem IV was started on drip for AFib RVR with trending upwards indeterminate troponin, positive BNP which is elevated from priors which were 1140 and 1730 in December and November. Critical Care Time Critical Care Time Critical Care Time: Yes Total Critical Care Time: 35 Attestation: The high probability of a clinically significant, sudden or life threatening deterioration of the [cardiac, pulm] system(s) required my full and direct attention, intervention and personal management. The aggregate critical care time was [] minutes. This time is in addition to time spent performing reported procedures but includes the following: [x] Data Review and interpretation [x] Patient assessment and monitoring of vital signs [x] Documentation [x] Medication orders and management Discharge Plan Departure Patient Disposition: Admitted As Inpatient Clinical Impression: Atrial fibrillation with rapid ventricular response, Acute exacerbation of CHF (congestive heart failure) Admit Date/Time: 02/01/22 17:24 Admit Provider: Desean Valero
[2022-02-01] MEDS: DILTIAZEM 125 MG/125 ML PIGGYBACK IV (17:12)
--- NOTE | 2022-02-01 17:18 | PM.HP.1 ---
History of Present Illness History of Present Illness Date Patient Seen: 02/01/22 Time Patient Seen: 19:04 Chief complaint: heart is racing/cant catch breath Narrative: Elaine Colón is a 76yo F with PMH of HFrEF of 20-25%, poorly controlled DM2, COPD on 2L baseline O2, and HTN who presents with dyspnea, increased LE swelling and found to be in A-fib RVR. HR of 150's in ED at rest. Responded to IV dilt 10 at first then went right back to 150's so started on dilt drip. Patient states she 1st noticed worsening dyspnea and palpitations 1 week ago which progressed to the point where she was very winded to do anything. She has no history of atrial fibrillation but she says her neighbor did so she is familiar with it. She reports compliance with her cardiac medications. She saw Dr. Rice deburr technician in clinic recently. States she is moving back to [place] on February 23. She denies chest pain, cough, nausea vomiting, diarrhea, headache or unilateral leg swelling. Patient History Medical History Bladder cystocele CHF (congestive heart failure) COPD (chronic obstructive pulmonary disease) Diabetes mellitus IDDM (insulin dependent diabetes mellitus) Lichen planus Low left ventricular ejection fraction Vaginal candidiasis Surgical History History of removal of cyst Family & Social History Family History Mother Diabetes mellitus Father MVA (motor vehicle accident) Sister Cancer Sister Alcohol poisoning Sister Tobacco dependence Drinks alcohol Social History: household members none Safety & Behavioral: Feels Safe in Current Yes Environment Been Physically Hurt or No Threatened By a Person Tobacco & Substance use: Tobacco type cigarettes Smoking Status Former smoker alcohol intake current alcohol intake frequency holiday/special occasion Substance Use Type does not use Meds Home Medications and Allergies Home Medications Medication Instructions Recorded Confirmed Type blood-glucose meter,continuous #1 ea 10/25/21 02/01/22 Rx (Dexcom G6 Roll Forming Machine Set Up Mechanic misc) blood-glucose sensor (Dexcom G6 #3 ea 10/25/21 02/01/22 Rx Sensor device) blood-glucose transmitter (Dexcom #1 ea 10/25/21 02/01/22 Rx G6 Transmitter device) blood sugar diagnostic (Blood #100 ea 10/29/21 02/01/22 Rx Glucose Test strips) blood-glucose meter #1 ea 10/29/21 02/01/22 Rx lancets 25 gauge #100 ea 10/29/21 02/01/22 Rx albuterol sulfate 90 mcg/actuation 2 puff inhalation Q4-6H PRN 11/11/21 02/01/22 Rx aerosol inhaler (ProAir HFA) shortness of breath or wheezing #8.5 grams glipizide 10 mg tablet, extended 10 mg PO BID #180 tabs 11/11/21 02/01/22 Rx release 24 hr aspirin 81 mg tablet,delayed 81 mg PO DAILY #30 tabs 11/25/21 02/01/22 Rx release guaifenesin 600 mg tablet, 600 mg PO BID #20 tabs 11/25/21 02/01/22 Rx extended release 12 hr (Mucus Relief ER) metronidazole 500 mg tablet 500 mg PO BID #180 tabs 12/02/21 02/01/22 Rx insulin glargine 100 unit/mL (3 10 unit (0.1 mL) SUBCUT QPM #15 mL 12/21/21 02/01/22 Rx mL) subcutaneous pen (Lantus Solostar U-100 Insulin) clobetasol 0.05 % topical ointment 1 applic topical .COMPLEX #30 grams 01/01/22 02/01/22 Rx fluconazole 150 mg tablet 150 mg PO QWEEK 02/01/22 02/01/22 History (Diflucan) losartan 25 mg tablet 12.5 mg PO QAM 02/01/22 02/01/22 History metformin 850 mg tablet 850 mg PO TID 02/01/22 02/01/22 History metoprolol succinate 25 mg 12.5 mg PO DAILY 02/01/22 02/01/22 History tablet,extended release 24 hr spironolactone 25 mg tablet 12.5 mg PO QAM 02/01/22 02/01/22 History Allergies Allergy/AdvReac Type Severity Reaction Status Date / Time No Known Drug Allergies Allergy Verified 02/01/22 12:44 Review of Systems Review of Systems Narrative: All other systems reviewed with the patient and are negative unless otherwise stated. Exam Vital Signs (past 8 hours): - 02/01/22 12:41 02/01/22 14:19 02/01/22 13:03 Temperature 97.7 F Pulse Rate 151 H 147 H 156 H Respiratory Rate 18 27 H Blood Pressure 115/55 L 109/62 Pulse Oximetry 94 99 Oxygen Delivery Method Nasal Cannula Nasal Cannula Oxygen Flow Rate 2 2 02/01/22 13:30 02/01/22 13:30 02/01/22 14:00 Temperature Pulse Rate 153 H Respiratory Rate 22 Blood Pressure 127/62 109/62 Pulse Oximetry 99 Oxygen Delivery Method Oxygen Flow Rate 02/01/22 14:00 02/01/22 14:30 02/01/22 14:30 Temperature Pulse Rate 145 H 118 H Respiratory Rate 22 31 H Blood Pressure 105/58 L Pulse Oximetry 95 95 Oxygen Delivery Method Oxygen Flow Rate 02/01/22 15:00 02/01/22 15:00 02/01/22 15:30 Temperature Pulse Rate 132 H 143 H Respiratory Rate 38 H 34 H Blood Pressure 110/61 Pulse Oximetry 94 96 Oxygen Delivery Method Nasal Cannula Oxygen Flow Rate 2 02/01/22 17:10 02/01/22 16:00 02/01/22 16:30 Temperature Pulse Rate 156 H 133 H 126 H Respiratory Rate 36 H 25 H Blood Pressure 115/81 Pulse Oximetry 97 98 Oxygen Delivery Method Oxygen Flow Rate 02/01/22 17:00 02/01/22 17:04 02/01/22 17:05 Temperature Pulse Rate 155 H 151 H Respiratory Rate 31 H 30 H Blood Pressure 115/81 Pulse Oximetry 97 99 Oxygen Delivery Method Oxygen Flow Rate Oxygen Delivery Method Nasal Cannula Oxygen Flow Rate 2 Narrative Exam Narrative: GEN: no acute distress, conversational dyspnea HEENT: moist mucous membranes, PERRL NECK: trachea midline, no JVD CV: tachycardia, irregulary irregular, no murmurs PULM: clear bilaterally ABD: soft, nontender, nondistended, no organomegaly, abd distention from edema EXT: warm and well perfused, 2+ pitting edema in LE's NEURO: awake, alert, oriented, no focal deficits Objective Labs Result Diagrams: 02/01/22 13:10 02/01/22 13:10 Labs: Laboratory Results - last 24 hr 02/01/22 02/01/22 02/01/22 13:10 13:10 13:10 WBC 6.6 RBC 3.74 L Hgb 11.1 L Hct 33.4 L MCV 89.3 MCH 29.7 MCHC 33.3 RDW 14.3 Plt Count 256 Neut % (Auto) 76.7 H Lymph % (Auto) 14.7 L Sharp % (Auto) 6.5 Eos % (Auto) 1.1 L Baso % (Auto) 1.0 Neut # (Auto) 5000 Lymph # (Auto) 1000 L Sharp # (Auto) 400 Eos # (Auto) 100 Baso # (Auto) 100 PT 13.5 H INR 1.2 APTT 32 Sodium 134 L Potassium 4.7 Chloride 89 L Carbon Dioxide 35 H BUN 18 H Creatinine 0.60 Estimated GFR > 60 BUN/Creatinine Ratio 30.0 H Glucose 393 H Calcium 8.7 Magnesium 1.5 L Total Bilirubin 1.1 AST 61 H ALT 75 H Alkaline Phosphatase 100 Total Creatine Kinase 26 L CK-MB (CK-2) TNP CK-MB (CK-2) Rel Index TNP Troponin I 0.061 H NT-Pro-B Natriuret Pep 2830 H Total Protein 7.4 Albumin 3.9 Globulin 3.5 Albumin/Globulin Ratio 1.1 Lipase 37 SARS-CoV-2 (PCR) 02/01/22 02/01/22 15:17 15:22 WBC RBC Hgb Hct MCV MCH MCHC RDW Plt Count Neut % (Auto) Lymph % (Auto) [place] % (Auto) Eos % (Auto) Baso % (Auto) Neut # (Auto) Lymph # (Auto) Sharp # (Auto) Eos # (Auto) Baso # (Auto) PT INR APTT Sodium Potassium Chloride Carbon Dioxide BUN Creatinine Estimated GFR BUN/Creatinine Ratio Glucose Calcium Magnesium Total Bilirubin AST ALT Alkaline Phosphatase Total Creatine Kinase CK-MB (CK-2) CK-MB (CK-2) Rel Index Troponin I 0.079 H NT-Pro-B Natriuret Pep Total Protein Albumin Globulin Albumin/Globulin Ratio Lipase SARS-CoV-2 (PCR) Negative Assessment & Plan Assessment & Plan narrative: # acute new onset atrial fibrillation with RVR, present on admission -notes 1 week of dyspnea and HR 150's -currently on diltiazem drip, HR improved to 120's -[id number] of 6 so will start po eliquis 5mg BID pineda in case of need for cardioversion -wean drip as able and transition to po dilt when able -check TSH -tele # elevated troponin due to demand ischemia -trop 0.061>0.079 -no chest pain or EKG changes -likely secondary to troponin leak from A-fib RVR -trend until downtrending # acute HFrEF of 20-25% -previous echo in October 2021 -likely exacerbated by A-fib RVR -lasix 40mg IV BID -repeat limited echo -continue home spironolactone # COPD with chronic hypoxic respiratory failure -currently on home 2L NC -continue home mucinex 600mg BID # poorly controlled DM2 -last A1c 10% -check repeat -lantus 15u daily and high dose sliding scale -consult dietary for diabetes education -carb consistent diet # HTN, chronic -continue home losartan I spent a total of 35 minutes of critical care time on this patient's care today; this time is exclusive of procedural time. Code status is full code. COVID negative. DVT prophylaxis with Eliquis. Proxy is friend Jessica Calvin. I have reviewed home meds and used all available resources to reconcile the home meds. Time Spent With Patient Critical Care time: I spent a total of [] minutes of critical care time on this patient's care today; this time is exclusive of procedural time.
[2022-02-01] MEDS: FUROSEMIDE 40 MG/4 ML VIAL IV ×2 (17:25→20:21)
[2022-02-01 17:33] LABS: Hemoglobin A1C% w Est Avg Glu 8.1 % (4.0-6.0)
[2022-02-01] MEDS: MAGNESIUM SULFATE 4 GM/100 ML PIGGYBACK IV (17:45)
[2022-02-01] MEDS: ALBUTEROL/IPRATROPIUM 3 ML AMPUL INH ×2 (17:49→22:55)
[2022-02-01 18:21] LABS: Appearance Urine UA CLEAR; Bilirubin Urine UA NEGATIVE (NEGATIVE); Color Urine UA YELLOW; Glucose Urine UA 1+ g/dL (Negative); Ketones Urine UA NEGATIVE (NEGATIVE); Leukocyte Esterase Urine UA TRACE (NEGATIVE); Nitrite Urine UA NEGATIVE (Negative); Occult Blood Urine UA NEGATIVE (Negative); Protein Urine UA NEGATIVE (Negative); Urobilinogen Urine UA 0.2 E.U./dL (0.2)
[2022-02-01 18:29] LABS: Bacteria Urine None Seen; Culture Indicated Urine Cult Not Indicated; RBC Urine 0-1/HPF (0-5/HPF); Squamous Epithelial Cell Urine 0-1 /HPF (0-5/HPF); WBC Urine 0-1/HPF (0-5/HPF)
[2022-02-01] MEDS: LOSARTAN 25 MG TABLET 12.5 MG PO (19:10)
[2022-02-01] MEDS: SPIRONOLACTONE 25 MG TABLET 12.5 MG PO (19:10)
--- NOTE | 2022-02-01 19:11 | PC.NURSE ---
Admit Note Patient arrived to room 226 from ER at 1840 via stretcher. Walked to bed and to BSC, SBA, steady on feet. Afib RVR in the 150s, dilt gtt increased to 15 mg/hr, HR down to 120s. Alert and oriented x3. Denies pain. Oriented to call light/bed alarm/tv controls. Call light within reach. Cell phone and clothing at bedside. Declines need to lock up any valuables.
[2022-02-01] MEDS: APIXABAN 5 MG TABLET PO (20:21)
[2022-02-01] MEDS: guaiFENesin ER 600 MG TAB PO (20:21)
[2022-02-01] MEDS: INSULIN LISPRO 100 UNIT/ML 3ML VIAL SUBCUT (20:38)
[2022-02-01] MEDS: INSULIN GLARGINE 100 UNIT/ML 3ML PEN 15 UNIT SUBCUT (20:38)
--- NOTE | 2022-02-01 20:38 | P.TELICUCN_ITS ---
History of Present Illness Consult details IF CAMERA ACTIVATED, patient seen via real-time interactive audiovisual communication: Camera activated Date Patient Seen: 02/01/22 Chief complaint: heart is racing/cant catch breath Consent obtained for tele-laborer cheesemaking care: Yes Patient Location: ICU Provider location (State): [place] Other participants/roles: RN Narrative: 76 year old woman with PMH of HFrEF of 20-25%, poorly controlled DM2, COPD on 2L baseline O2, and HTN presenting after complaints with dyspnea nad LE edema, with palpitations found to to be in afib with RVR - started on cardizem gtt with imrpovement in HR during my evaluation. Pt stated her SOB has imrp[kostas since then, currently on NC with Hr in low 100s and she is HD stable [facility] Medical History Bladder cystocele CHF (congestive heart failure) COPD (chronic obstructive pulmonary disease) Diabetes mellitus IDDM (insulin dependent diabetes mellitus) Lichen planus Low left ventricular ejection fraction Vaginal candidiasis Surgical History History of removal of cyst Family History Mother Diabetes mellitus Father MVA (motor vehicle accident) Sister Cancer Sister Alcohol poisoning Sister Tobacco dependence Drinks alcohol Social History household members: none Smoking Status: Former smoker Tobacco: How many years used: 60 quit status: has quit before second hand exposure: Yes alcohol intake: current substance use type: does not use Current Medications Current Medications Medications: Home Medications blood-glucose meter,continuous (Dexcom G6 Managing Consultant Clinical Professor [facility]) #1 ea 10/25/21 [Rx Confirmed 02/01/22] blood-glucose sensor (Dexcom G6 Sensor device) #3 ea 10/25/21 [Rx Confirmed 02/01/22] blood-glucose transmitter (Dexcom G6 Transmitter device) #1 ea 10/25/21 [Rx Confirmed 02/01/22] blood sugar diagnostic (Blood Glucose Test strips) #100 ea 10/29/21 [Rx Confirmed 02/01/22] blood-glucose meter #1 ea 10/29/21 [Rx Confirmed 02/01/22] lancets 25 gauge #100 ea 10/29/21 [Rx Confirmed 02/01/22] albuterol sulfate 90 mcg/actuation aerosol inhaler (ProAir HFA) 2 puff inhalation Q4-6H PRN shortness of breath or wheezing #8.5 grams 11/11/21 [Rx Confirmed 02/01/22] glipizide 10 mg tablet, extended release 24 hr 10 mg PO BID #180 tabs 11/11/21 [Rx Confirmed 02/01/22] aspirin 81 mg tablet,delayed release 81 mg PO DAILY #30 tabs 11/25/21 [Rx Confirmed 02/01/22] guaifenesin 600 mg tablet, extended release 12 hr (Mucus Relief ER) 600 mg PO BID #20 tabs 11/25/21 [Rx Confirmed 02/01/22] metronidazole 500 mg tablet 500 mg PO BID #180 tabs 12/02/21 [Rx Confirmed 02/01/22] insulin glargine 100 unit/mL (3 mL) subcutaneous pen (Lantus Solostar U-100 Insulin) 10 unit (0.1 mL) SUBCUT QPM #15 mL 12/21/21 [Rx Confirmed 02/01/22] clobetasol 0.05 % topical ointment 1 applic topical .COMPLEX #30 grams 01/01/22 [Rx Confirmed 02/01/22] fluconazole 150 mg tablet (Diflucan) 150 mg PO QWEEK 02/01/22 [History Confirmed 02/01/22] losartan 25 mg tablet 12.5 mg PO QAM 02/01/22 [History Confirmed 02/01/22] metformin 850 mg tablet 850 mg PO TID 02/01/22 [History Confirmed 02/01/22] metoprolol succinate 25 mg tablet,extended release 24 hr 12.5 mg PO DAILY 02/01/22 [History Confirmed 02/01/22] spironolactone 25 mg tablet 12.5 mg PO QAM 02/01/22 [History Confirmed 02/01/22] Visit Medications (administered) Generic Name Dose Route Start Last Admin Trade Name Freq PRN Reason Stop Dose Admin Apixaban 5 mg 02/01/22 21:00 02/01/22 20:21 Apixaban 5 Mg Tablet PO 5 mg BID ANNALISE Administration Furosemide 40 mg 02/01/22 21:00 02/01/22 20:21 Furosemide 40 Mg/4 Ml Vial IV 40 mg BID ANNALISE Administration Guaifenesin 600 mg 02/01/22 21:00 02/01/22 20:21 Guaifenesin Er 600 Mg Tab PO 600 mg BID ANNALISE Administration DILTIAZEM 125 mg in 125 mls @ 5 mls/hr 02/01/22 17:00 02/01/22 18:18 Diltiazem 125 Mg/125 Ml-D5w IV 10 mg/hr TITRATE ANNALISE 10 mls/hr Titration Protocol 5 MG/HR Magnesium Sulfate 4 gm in 100 mls @ 25 mls/hr 02/01/22 17:08 02/01/22 18:19 Magnesium Sulfate IV 02/01/22 21:07 25 mls/hr NOW ONE Infusion Losartan Potassium 12.5 mg 02/01/22 17:30 02/01/22 19:10 Losartan 25 Mg Tablet PO 12.5 mg DAILY ANNALISE Administration Spironolactone 12.5 mg 02/01/22 17:30 02/01/22 19:10 Spironolactone 25 Mg Tablet PO 12.5 mg DAILY ANNALISE Administration Review of Systems Cardiovascular Comments: no chest pain Respiratory Comments: SOB improving Gastrointestinal Comments: no n/v Exam Vital Signs (past 8 hours): - 02/01/22 12:41 02/01/22 14:19 02/01/22 13:03 Temperature 97.7 F Pulse Rate 151 H 147 H 156 H Respiratory Rate 18 27 H Blood Pressure 115/55 L 109/62 Pulse Oximetry 94 99 Oxygen Delivery Method Nasal Cannula Nasal Cannula Oxygen Flow Rate 2 2 02/01/22 13:30 02/01/22 13:30 02/01/22 14:00 Temperature Pulse Rate 153 H Respiratory Rate 22 Blood Pressure 127/62 109/62 Pulse Oximetry 99 Oxygen Delivery Method Oxygen Flow Rate 02/01/22 14:00 02/01/22 14:30 02/01/22 14:30 Temperature Pulse Rate 145 H 118 H Respiratory Rate 22 31 H Blood Pressure 105/58 L Pulse Oximetry 95 95 Oxygen Delivery Method Oxygen Flow Rate 02/01/22 15:00 02/01/22 15:00 02/01/22 15:30 Temperature Pulse Rate 132 H 143 H Respiratory Rate 38 H 34 H Blood Pressure 110/61 Pulse Oximetry 94 96 Oxygen Delivery Method Nasal Cannula Oxygen Flow Rate 2 02/01/22 17:10 02/01/22 16:00 02/01/22 16:30 Temperature Pulse Rate 156 H 133 H 126 H Respiratory Rate 36 H 25 H Blood Pressure 115/81 Pulse Oximetry 97 98 Oxygen Delivery Method Oxygen Flow Rate 02/01/22 17:00 02/01/22 17:04 02/01/22 17:05 Temperature Pulse Rate 155 H 151 H Respiratory Rate 31 H 30 H Blood Pressure 115/81 Pulse Oximetry 97 99 Oxygen Delivery Method Oxygen Flow Rate 02/01/22 17:49 02/01/22 17:05 02/01/22 17:30 Temperature Pulse Rate 74 149 H Respiratory Rate 22 34 H Blood Pressure 134/79 Pulse Oximetry 94 99 Oxygen Delivery Method Nasal Cannula Oxygen Flow Rate 2 02/01/22 17:30 02/01/22 18:03 02/01/22 18:51 Temperature 97.5 F L Pulse Rate 130 H 140 H 126 H Respiratory Rate 29 H 31 H 24 Blood Pressure 169/77 H Pulse Oximetry 95 90 L Oxygen Delivery Method Oxygen Flow Rate 2 02/01/22 20:00 02/01/22 18:48 02/01/22 18:48 Temperature 98.0 F Pulse Rate 133 H Respiratory Rate 34 H Blood Pressure 169/77 H Pulse Oximetry 92 Oxygen Delivery Method Oxygen Flow Rate 2 02/01/22 19:08 02/01/22 19:08 02/01/22 19:10 Temperature Pulse Rate 123 H 123 H Respiratory Rate 31 H 34 H Blood Pressure 89/52 L Pulse Oximetry 92 92 Oxygen Delivery Method Oxygen Flow Rate 02/01/22 19:10 02/01/22 19:31 02/01/22 19:31 Temperature Pulse Rate 115 H Respiratory Rate 31 H Blood Pressure 125/56 L 125/60 Pulse Oximetry 94 Oxygen Delivery Method Oxygen Flow Rate 02/01/22 20:03 02/01/22 20:03 02/01/22 20:13 Temperature Pulse Rate 116 H 112 H Respiratory Rate 34 H 29 H Blood Pressure 115/68 Pulse Oximetry 95 95 Oxygen Delivery Method Oxygen Flow Rate Oxygen Delivery Method Nasal Cannula Oxygen Flow Rate 2 Narrative Exam Narrative: exam limited by telemdicine, surrogate for full exam is p[rimary team Const Other: awake, alert on NC Resp Other: no obvious adventitious sounds Cardio Other: afib on monitor, HR in 100s Objective Labs Result Diagrams: 02/01/22 13:10 02/01/22 13:10 Labs: Laboratory Results - last 24 hr 02/01/22 02/01/22 02/01/22 13:10 13:10 13:10 WBC 6.6 RBC 3.74 L Hgb 11.1 L Hct 33.4 L MCV 89.3 MCH 29.7 MCHC 33.3 RDW 14.3 Plt Count 256 Neut % (Auto) 76.7 H Lymph % (Auto) 14.7 L [place] % (Auto) 6.5 Eos % (Auto) 1.1 L Baso % (Auto) 1.0 Neut # (Auto) 5000 Lymph # (Auto) 1000 L [place] # (Auto) 400 Eos # (Auto) 100 Baso # (Auto) 100 PT 13.5 H INR 1.2 APTT 32 Sodium 134 L Potassium 4.7 Chloride 89 L Carbon Dioxide 35 H BUN 18 H Creatinine 0.60 Estimated GFR > 60 BUN/Creatinine Ratio 30.0 H Glucose 393 H Hemoglobin A1c Calcium 8.7 Magnesium 1.5 L Total Bilirubin 1.1 AST 61 H ALT 75 H Alkaline Phosphatase 100 Total Creatine Kinase 26 L CK-MB (CK-2) TNP CK-MB (CK-2) Rel Index TNP Troponin I 0.061 H NT-Pro-B Natriuret Pep 2830 H Total Protein 7.4 Albumin 3.9 Globulin 3.5 Albumin/Globulin Ratio 1.1 Lipase 37 TSH Urine Color Urine Appearance Urine pH Ur Specific Serena Urine Protein Urine Glucose (UA) Urine Ketones Urine Occult Blood Urine Nitrate Urine Bilirubin Urine Urobilinogen Ur Leukocyte Esterase Urine RBC Urine WBC Ur Squamous Epith Cells Urine Bacteria Ur Culture Indicated? Nasal Screen MRSA (PCR) SARS-CoV-2 (PCR) 02/01/22 02/01/22 02/01/22 13:10 13:10 15:17 WBC RBC Hgb Hct MCV MCH MCHC RDW Plt Count Neut % (Auto) Lymph % (Auto) [place] % (Auto) Eos % (Auto) Baso % (Auto) Neut # (Auto) Lymph # (Auto) [place] # (Auto) Eos # (Auto) Baso # (Auto) PT INR APTT Sodium Potassium Chloride Carbon Dioxide BUN Creatinine Estimated GFR BUN/Creatinine Ratio Glucose Hemoglobin A1c 8.1 H Calcium Magnesium Total Bilirubin AST ALT Alkaline Phosphatase Total Creatine Kinase CK-MB (CK-2) CK-MB (CK-2) Rel Index Troponin I 0.079 H NT-Pro-B Natriuret Pep Total Protein Albumin Globulin Albumin/Globulin Ratio Lipase TSH 0.70 Urine Color Urine Appearance Urine pH Ur Specific Serena Urine Protein Urine Glucose (UA) Urine Ketones Urine Occult Blood Urine Nitrate Urine Bilirubin Urine Urobilinogen Ur Leukocyte Esterase Urine RBC Urine WBC Ur Squamous Epith Cells Urine Bacteria Ur Culture Indicated? Nasal Screen MRSA (PCR) SARS-CoV-2 (PCR) 02/01/22 02/01/22 02/01/22 15:22 18:18 18:30 WBC RBC Hgb Hct MCV MCH MCHC RDW Plt Count Neut % (Auto) Lymph % (Auto) [place] % (Auto) Eos % (Auto) Baso % (Auto) Neut # (Auto) Lymph # (Auto) [place] # (Auto) Eos # (Auto) Baso # (Auto) PT INR APTT Sodium Potassium Chloride Carbon Dioxide BUN Creatinine Estimated GFR BUN/Creatinine Ratio Glucose Hemoglobin A1c Calcium Magnesium Total Bilirubin AST ALT Alkaline Phosphatase Total Creatine Kinase CK-MB (CK-2) CK-MB (CK-2) Rel Index Troponin I NT-Pro-B Natriuret Pep Total Protein Albumin Globulin Albumin/Globulin Ratio Lipase TSH Urine Color Yellow Urine Appearance Clear Urine pH 6.0 Ur Specific Serena 1.010 Urine Protein Negative Urine Glucose (UA) 1+ H Urine Ketones Negative Urine Occult Blood Negative Urine Nitrate Negative Urine Bilirubin Negative Urine Urobilinogen 0.2 Ur Leukocyte Esterase Trace H Urine RBC 0-1/hpf Urine WBC 0-1/hpf Ur Squamous Epith Cells 0-1 /hpf Urine Bacteria None seen Ur Culture Indicated? Cult not indicated Nasal Screen MRSA (PCR) Negative for mrsa SARS-CoV-2 (PCR) Negative Assessment & Plan Assessment and plan (1) Atrial fibrillation with rapid ventricular response: Status: Acute (2) Acute exacerbation of CHF (congestive heart failure): Status: Acute (3) Diabetes mellitus: Qualifiers: Diabetes mellitus type: type 2 Diabetes mellitus joint terminal attack controller insulin use: without joint terminal attack controller use Diabetes mellitus complication status: with other specified complication Qualified Code(s): E11.69 - Type 2 diabetes mellitus with other specified complication Status: Acute (4) Low left ventricular ejection fraction: Status: Acute (5) Acute and chronic respiratory failure: Status: Acute Assessment & Plan narrative: supoplemental o2 as needed cont cardizem gtt TTE map at goal adat trend bmp goal negative balance, lasix as needed monitro UO on eliquis trend cbc monitor off abx nebs prn total critical care time spent = 35 min Time Spent With Patient Critical Care time: I spent a total of [] minutes of critical care time on this patient's care today; this time is exclusive of procedural time.
[2022-02-01] MEDS: ACETAMINOPHEN 325 MG TABLET 650 MG PO (20:43)
[2022-02-01 22:05] LABS: Troponin I 0.077 ng/mL (0.01-0.034)
[2022-02-02] VITALS (54 sets, daily range): BP systolic 114–143; BP diastolic 51–91; PULSE 74–100; RESP 17–38; TEMP 36.5–37; O2SAT 90–97
--- NOTE | 2022-02-02 00:19 | PC.NURSE ---
Shift Note: At 2330, patient suddenly complained of worsening short of breath, complaining she cant get air, O2 sat dropped to low 80s, O2 support increased to 4lpm, breath sounds decreased throughout with fine crackles at the bases, O2 sat went up to 88-89%, patient appears anxious but orientedx4, notified provider and RT, stat glucose check done and RT increased O2 to 6lpm, instructed patient to perform purse lip breathing, patient O2 sat started to back up to 90s, O2 support titrated to 5lpm with O2 sat 96%, patient breathing appears relaxed. Will continue to monitor.
[2022-02-02] MEDS: DILTIAZEM 125 MG/125 ML PIGGYBACK 10 MG IV (00:36)
[2022-02-02 05:30] LABS: Add Manual Diff / Slide Review NO; Basophils Absolute Auto 100 /uL (0-100); Basophils Percent Auto 0.9 % (0-2); Eosinophils Absolute Auto 100 /uL (0-450); Eosinophils Percent Auto 0.9 % (2-4); Hematocrit 33.2 % (36-46); Lymphocytes Absolute Auto 1000 /uL (1100-4500); Mean Corpuscular HGB Conc 33.2 % (30-36); Mean Corpuscular Hemoglobin 29.7 PG (26-34); Mean Corpuscular Volume 89.5 fL (80-100); Monocytes Absolute Auto 500 /uL (0-900); Monocytes Percent Auto 7.3 % (3-14); Neutrophils Absolute Auto 5700 /uL (1500-7000); Neutrophils Percent Auto 77.9 % (50-75); Platelet Count 258 X10^3/uL (150-400); Red Blood Cell Count 3.71 X10^6/uL (4.0-5.2); Red Cell Distribution Width 14.6 % (11.6-14.8); White Blood Cell Count 7.4 X10^3/uL (4.5-11.0)
[2022-02-02 05:37] LABS: BUN Creatinine Ratio 32.1 (6-22); Blood Urea Nitrogen 17 mg/dL (7-17); Calcium 8.4 mg/dL (8.4-10.2); Carbon Dioxide 36 mmol/L (22-32); Chloride 90 mmol/L (98-107); Estimated Glomerular Filt Rate > 60 mL/min (>60); Glucose 312 mg/dL (80-110); HEMOLYSIS < 15 (0-50); Potassium 4.6 mmol/L (3.4-5.1); Sodium 134 mmol/L (137-145)
[2022-02-02 05:46] LABS: Magnesium 2.1 mg/dL (1.6-2.3)
[2022-02-02 05:48] LABS: Troponin I 0.066 ng/mL (0.01-0.034)
[2022-02-02] MEDS: ALBUTEROL/IPRATROPIUM 3 ML AMPUL INH ×5 (07:22→23:39)
--- NOTE | 2022-02-02 07:57 | P.PN_ITS ---
Subjective Subjective Date Patient Seen: 02/02/22 Time Patient Seen: 11:00 Interval history: Dilt drip weaned off and HR in 80's currently. Patient feels better than yesterday. Continues to have some epigastric fullness. LE edema improving. Exam Vital Signs (past 8 hours): - 02/02/22 04:00 02/02/22 00:00 02/02/22 00:00 Temperature Pulse Rate Respiratory Rate Blood Pressure Pulse Oximetry Oxygen Delivery Method Nasal Cannula Nasal Cannula Oxygen Flow Rate 4 Fraction of Inspired Oxygen 02/02/22 00:09 02/02/22 00:09 02/02/22 00:20 Temperature Pulse Rate 87 82 Respiratory Rate 35 H 29 H Blood Pressure 131/61 Pulse Oximetry 95 97 Oxygen Delivery Method Oxygen Flow Rate Fraction of Inspired Oxygen 02/02/22 01:00 02/02/22 01:00 02/02/22 01:00 Temperature Pulse Rate 78 Respiratory Rate 38 H Blood Pressure 124/60 Pulse Oximetry 93 Oxygen Delivery Method Oxygen Flow Rate 4 Fraction of Inspired Oxygen 02/02/22 02:00 02/02/22 02:00 02/02/22 02:00 Temperature Pulse Rate 76 Respiratory Rate 24 Blood Pressure 130/60 Pulse Oximetry 94 Oxygen Delivery Method Oxygen Flow Rate 4 Fraction of Inspired Oxygen 02/02/22 02:01 02/02/22 03:00 02/02/22 03:00 Temperature Pulse Rate 75 Respiratory Rate 27 H Blood Pressure 132/60 Pulse Oximetry 94 Oxygen Delivery Method Oxygen Flow Rate 4 Fraction of Inspired Oxygen 02/02/22 03:00 02/02/22 04:00 02/02/22 04:00 Temperature 98.6 F Pulse Rate 78 Respiratory Rate 21 Blood Pressure 129/61 Pulse Oximetry 95 Oxygen Delivery Method Oxygen Flow Rate 2 Fraction of Inspired Oxygen 02/02/22 04:00 02/02/22 04:19 02/02/22 05:00 Temperature Pulse Rate 82 77 Respiratory Rate 19 24 Blood Pressure Pulse Oximetry 93 94 Oxygen Delivery Method Oxygen Flow Rate 2 Fraction of Inspired Oxygen 02/02/22 05:00 02/02/22 05:00 02/02/22 05:35 Temperature Pulse Rate 82 80 Respiratory Rate 28 H 35 H Blood Pressure 130/61 Pulse Oximetry 95 95 Oxygen Delivery Method Oxygen Flow Rate Fraction of Inspired Oxygen 02/02/22 06:00 02/02/22 06:00 02/02/22 06:00 Temperature Pulse Rate 81 Respiratory Rate 37 H Blood Pressure 121/91 H Pulse Oximetry 93 Oxygen Delivery Method Oxygen Flow Rate 2 Fraction of Inspired Oxygen 02/02/22 07:22 02/02/22 06:30 02/02/22 07:00 Temperature Pulse Rate 88 79 Respiratory Rate 18 24 Blood Pressure 143/63 H Pulse Oximetry 95 96 Oxygen Delivery Method Nasal Cannula Oxygen Flow Rate 2 Fraction of Inspired Oxygen 28 02/02/22 07:00 Temperature Pulse Rate 81 Respiratory Rate 31 H Blood Pressure Pulse Oximetry 95 Oxygen Delivery Method Oxygen Flow Rate Fraction of Inspired Oxygen Fraction of Inspired Oxygen 28 SaO2/FiO2 Ratio 339 Oxygen Delivery Method Nasal Cannula Oxygen Flow Rate 2 Narrative Exam Narrative: GEN: no acute distress HEENT: moist mucous membranes, PERRL NECK: trachea midline, no JVD CV: tachycardia, irregulary irregular, no murmurs PULM: clear bilaterally ABD: soft, nontender, nondistended, no organomegaly, abd distention from edema, mild tenderness to epigastric region EXT: warm and well perfused, 2+ pitting edema in LE's improving NEURO: awake, alert, oriented, no focal deficits Objective Labs Result Diagrams: 02/02/22 05:11 02/02/22 05:11 Labs: Laboratory Results - last 24 hr 02/01/22 02/01/22 02/01/22 13:10 13:10 13:10 WBC 6.6 RBC 3.74 L Hgb 11.1 L Hct 33.4 L MCV 89.3 MCH 29.7 MCHC 33.3 RDW 14.3 Plt Count 256 Neut % (Auto) 76.7 H Lymph % (Auto) 14.7 L [place] % (Auto) 6.5 Eos % (Auto) 1.1 L Baso % (Auto) 1.0 Neut # (Auto) 5000 Lymph # (Auto) 1000 L [place] # (Auto) 400 Eos # (Auto) 100 Baso # (Auto) 100 PT 13.5 H INR 1.2 APTT 32 Sodium 134 L Potassium 4.7 Chloride 89 L Carbon Dioxide 35 H BUN 18 H Creatinine 0.60 Estimated GFR > 60 BUN/Creatinine Ratio 30.0 H Glucose 393 H Hemoglobin A1c Calcium 8.7 Magnesium 1.5 L Total Bilirubin 1.1 AST 61 H ALT 75 H Alkaline Phosphatase 100 Total Creatine Kinase 26 L CK-MB (CK-2) TNP CK-MB (CK-2) Rel Index TNP Troponin I 0.061 H NT-Pro-B Natriuret Pep 2830 H Total Protein 7.4 Albumin 3.9 Globulin 3.5 Albumin/Globulin Ratio 1.1 Lipase 37 TSH Urine Color Urine Appearance Urine pH Ur Specific [place] Urine Protein Urine Glucose (UA) Urine Ketones Urine Occult Blood Urine Nitrate Urine Bilirubin Urine Urobilinogen Ur Leukocyte Esterase Urine RBC Urine WBC Ur Squamous Epith Cells Urine Bacteria Ur Culture Indicated? Nasal Screen MRSA (PCR) SARS-CoV-2 (PCR) 02/01/22 02/01/22 02/01/22 13:10 13:10 15:17 WBC RBC Hgb Hct MCV MCH MCHC RDW Plt Count Neut % (Auto) Lymph % (Auto) [place] % (Auto) Eos % (Auto) Baso % (Auto) Neut # (Auto) Lymph # (Auto) [place] # (Auto) Eos # (Auto) Baso # (Auto) PT INR APTT Sodium Potassium Chloride Carbon Dioxide BUN Creatinine Estimated GFR BUN/Creatinine Ratio Glucose Hemoglobin A1c 8.1 H Calcium Magnesium Total Bilirubin AST ALT Alkaline Phosphatase Total Creatine Kinase CK-MB (CK-2) CK-MB (CK-2) Rel Index Troponin I 0.079 H NT-Pro-B Natriuret Pep Total Protein Albumin Globulin Albumin/Globulin Ratio Lipase TSH 0.70 Urine Color Urine Appearance Urine pH Ur Specific [place] Urine Protein Urine Glucose (UA) Urine Ketones Urine Occult Blood Urine Nitrate Urine Bilirubin Urine Urobilinogen Ur Leukocyte Esterase Urine RBC Urine WBC Ur Squamous Epith Cells Urine Bacteria Ur Culture Indicated? Nasal Screen MRSA (PCR) SARS-CoV-2 (PCR) 02/01/22 02/01/22 02/01/22 15:22 18:18 18:30 WBC RBC Hgb Hct MCV MCH MCHC RDW Plt Count Neut % (Auto) Lymph % (Auto) [place] % (Auto) Eos % (Auto) Baso % (Auto) Neut # (Auto) Lymph # (Auto) [place] # (Auto) Eos # (Auto) Baso # (Auto) PT INR APTT Sodium Potassium Chloride Carbon Dioxide BUN Creatinine Estimated GFR BUN/Creatinine Ratio Glucose Hemoglobin A1c Calcium Magnesium Total Bilirubin AST ALT Alkaline Phosphatase Total Creatine Kinase CK-MB (CK-2) CK-MB (CK-2) Rel Index Troponin I NT-Pro-B Natriuret Pep Total Protein Albumin Globulin Albumin/Globulin Ratio Lipase TSH Urine Color Yellow Urine Appearance Clear Urine pH 6.0 Ur Specific [place] 1.010 Urine Protein Negative Urine Glucose (UA) 1+ H Urine Ketones Negative Urine Occult Blood Negative Urine Nitrate Negative Urine Bilirubin Negative Urine Urobilinogen 0.2 Ur Leukocyte Esterase Trace H Urine RBC 0-1/hpf Urine WBC 0-1/hpf Ur Squamous Epith Cells 0-1 /hpf Urine Bacteria None seen Ur Culture Indicated? Cult not indicated Nasal Screen MRSA (PCR) Negative for mrsa SARS-CoV-2 (PCR) Negative 02/01/22 02/02/22 02/02/22 21:35 05:11 05:11 WBC RBC Hgb Hct MCV MCH MCHC RDW Plt Count Neut % (Auto) Lymph % (Auto) [place] % (Auto) Eos % (Auto) Baso % (Auto) Neut # (Auto) Lymph # (Auto) [place] # (Auto) Eos # (Auto) Baso # (Auto) PT INR APTT Sodium Potassium Chloride Carbon Dioxide BUN Creatinine Estimated GFR BUN/Creatinine Ratio Glucose Hemoglobin A1c Calcium Magnesium 2.1 Total Bilirubin AST ALT Alkaline Phosphatase Total Creatine Kinase CK-MB (CK-2) CK-MB (CK-2) Rel Index Troponin I 0.077 H 0.066 H NT-Pro-B Natriuret Pep Total Protein Albumin Globulin Albumin/Globulin Ratio Lipase TSH Urine Color Urine Appearance Urine pH Ur Specific [place] Urine Protein Urine Glucose (UA) Urine Ketones Urine Occult Blood Urine Nitrate Urine Bilirubin Urine Urobilinogen Ur Leukocyte Esterase Urine RBC Urine WBC Ur Squamous Epith Cells Urine Bacteria Ur Culture Indicated? Nasal Screen MRSA (PCR) SARS-CoV-2 (PCR) 02/02/22 02/02/22 05:11 05:11 WBC 7.4 RBC 3.71 L Hgb 11.0 L Hct 33.2 L MCV 89.5 MCH 29.7 MCHC 33.2 RDW 14.6 Plt Count 258 Neut % (Auto) 77.9 H Lymph % (Auto) 13.0 L [place] % (Auto) 7.3 Eos % (Auto) 0.9 L Baso % (Auto) 0.9 Neut # (Auto) 5700 Lymph # (Auto) 1000 L [place] # (Auto) 500 Eos # (Auto) 100 Baso # (Auto) 100 PT INR APTT Sodium 134 L Potassium 4.6 Chloride 90 L Carbon Dioxide 36 H BUN 17 Creatinine 0.53 Estimated GFR > 60 BUN/Creatinine Ratio 32.1 H Glucose 312 H Hemoglobin A1c Calcium 8.4 Magnesium Total Bilirubin AST ALT Alkaline Phosphatase Total Creatine Kinase CK-MB (CK-2) CK-MB (CK-2) Rel Index Troponin I NT-Pro-B Natriuret Pep Total Protein Albumin Globulin Albumin/Globulin Ratio Lipase TSH Urine Color Urine Appearance Urine pH Ur Specific [place] Urine Protein Urine Glucose (UA) Urine Ketones Urine Occult Blood Urine Nitrate Urine Bilirubin Urine Urobilinogen Ur Leukocyte Esterase Urine RBC Urine WBC Ur Squamous Epith Cells Urine Bacteria Ur Culture Indicated? Nasal Screen MRSA (PCR) SARS-CoV-2 (PCR) PFSH Medical History Bladder cystocele CHF (congestive heart failure) COPD (chronic obstructive pulmonary disease) Diabetes mellitus IDDM (insulin dependent diabetes mellitus) Lichen planus Low left ventricular ejection fraction Vaginal candidiasis Surgical History History of removal of cyst Family History Mother Diabetes mellitus Father MVA (motor vehicle accident) Sister Cancer Sister Alcohol poisoning Sister Tobacco dependence Drinks alcohol Social History household members: none Smoking Status: Former smoker Tobacco: How many years used: 60 quit status: has quit before second hand exposure: Yes alcohol intake: current substance use type: does not use Assessment & Plan Assessment & Plan narrative: # acute new onset atrial fibrillation with RVR, present on admission -notes 1 week of dyspnea and HR 150's -initially required diltiazem drip -Ofpmr4Mnnn of 6 so will start po eliquis 5mg BID -dilt drip weaned off and transitioned to metoprolol 100mg BID -TSH normal at 0.7 -tele -patient to f/u with busgirl back in [place] in Mar when she moves back # elevated troponin due to demand ischemia -trop 0.061>0.079 -no chest pain or EKG changes -likely secondary to troponin leak from A-fib RVR -trend until downtrending # acute HFrEF of 20-25% -evidenced by LE edema and mild interstitial edema on CXR -previous echo in October 2021 -likely exacerbated by A-fib RVR -lasix 40mg IV BID -repeat limited echo shows -continue home spironolactone # COPD with chronic hypoxic respiratory failure -currently on home baseline of 2L NC -continue home mucinex 600mg BID # poorly controlled DM2 -last A1c 10% -check repeat -lantus 15u BID and high dose sliding scale -consult dietary for diabetes education -carb consistent diet # HTN, chronic -continue home losartan Code status is full code. COVID negative. DVT prophylaxis with Eliquis. Proxy is friend Jessica Calvin. I have reviewed home meds and used all available resources to reconcile the home meds. Dispo: Likely home on 02/03 if HR remains controlled. Time Spent With Patient Critical Care time: I spent a total of [] minutes of critical care time on this patient's care today; this time is exclusive of procedural time. Quality VTE Deep Vein Thrombosis/Pulmonary Embolism Present on Admission: Yes
[2022-02-02] MEDS: INSULIN LISPRO 100 UNIT/ML 3ML VIAL SUBCUT ×4 (08:10→21:53)
[2022-02-02] MEDS: guaiFENesin ER 600 MG TAB PO ×2 (08:11→20:27)
[2022-02-02] MEDS: FUROSEMIDE 40 MG/4 ML VIAL IV ×2 (08:12→20:27)
[2022-02-02] MEDS: APIXABAN 5 MG TABLET PO ×2 (08:12→20:26)
[2022-02-02] MEDS: LOSARTAN 25 MG TABLET 12.5 MG PO (08:20)
[2022-02-02] MEDS: SPIRONOLACTONE 25 MG TABLET 12.5 MG PO (08:20)
[2022-02-02] MEDS: dilTIAZem CD 240 MG CAP PO (09:42)
[2022-02-02] MEDS: MAG HYDROX/ALUMINUM/SIMETH SUS 20 ML, LIDOCAINE VISCOUS 2% 15 ML PO (13:07)
[2022-02-02] MEDS: INSULIN GLARGINE 100 UNIT/ML 3ML PEN 15 UNIT SUBCUT ×2 (13:09→21:53)
--- NOTE | 2022-02-02 13:49 | CM.DANOTE ---
Patient is a 76 yo female who was admitted on 02/01/22 for SOB/heart issues. Pt has [employer] ADV for insurance and her PCP is Dr. Cristo Quevedo. EMR was reviewed. Per MD, pt with poorly controlled diabetes and hx of COPD with home oxygen at baseline and admitted for new AFIB with RVR and to have repeat Echo. Met with patient in her room. She was sitting up in her chair, oxygen in place. Confirmed with patient that she resides at [facility], here in [place]. She has oxygen at home and uses a walker at baseline. Her friend, Jessica Kenny, is her main contact, and lives near by in a home in [place]. Patient stated, her last April, and wanted her to move out here so she could be by her friend. Prior to her living in [place], she lived in [place]. Confirmed that she was recently established with Dr. Quevedo at [facility]. She does not drive. Pt was last admitted in November 2021 and was able to d/c home via friend POV back to [facility]. [facility] and new [facility] referral. Pt states [facility] never started services and told her they did not have availability and would refer her to another HH agency but pt states she was never contacted and no HH ever initiated. Pt feels frustrated with the difficulty with getting into outpt services like Cardiology and Pulmonology and HH. Pt has been attempting to advocate and follow through with recommendations but referrals from PCP and call backs from offices are being dropped. Pt confirms that due to her decline in health and difficulty in accessing services she is planning to move back to [place] in Feb next month for better outpt medical care. Pt states she has been feeling weaker and feels HH needed at d/c but would prefer not trying [facility] again as they dropped the ball and never started services last time. [facility] not contracted with [facility] at this time and [facility] contacted and they will need to confirm tomorrow Mon that they still have active contract with [facility] and [facility] faxed facesheet and H&P to [facility]. Pt states she plans to d/c back to [facility] where she has been packing and moving company coming this week to move her items back to [place] and pt will then stay at her friend's Jessica's house in [place] for about a month prior to official move to [place] and this is where HH can continue working with her. Plan: SW to follow tomorrow Thursday with [facility] to confirm if they are contracted with her insurance towards plan of d/c to [facility] independent with new HH referral. MILTON Mancini Discharge Planning/Care Management CM Discharge Assessment Start: 02/02/22 13:43 Freq: Status: Active Protocol: Document 02/02/22 13:43 BF (Rec: 02/02/22 13:46 BF [id number]) Discharge Planning Assessment Assigned Manipulative Therapy Specialist MILTON Lind DPOA/Assigned Designee Name friend Jessica Contact Information [phone] Advance Directives? No Advance Directives on File No History Provided By Patient,Medical Record Has Patient been admitted in last 30 No days? Comment last admission in November 2021 for similar Prior Living Arrangements Apartment/Condo Comment Lives at [facility] Independent Household Members none Type of transporation used prior to Drives own vehicle admit Facility Name Admitted From: [facility] Willing to Return to Facility? Yes Independent with ADL's Yes Is patient alert and oriented? Yes Needs Assistance With Home Chores / Shopping Caregiver for Another No DME Already Rented / Owned Oxygen Patient/Family Preference Home with Home Health Barriers to Discharge No Discharge Plan Home with Home Health Community Services Physical Therapy,Home Health Aid,Home Health Nurse Transportation Arrangement Friend Referrals Initiated Home Health Additional Comment [facility] confirming they still have contract with [facility] Medicare Choice List Provided Yes SNF/HH Preference pt does not want [facility] as they never started services after last referral, [facility] not contracted with [facility], [facility] confirming Mon they are active with [facility] contract Whiteboard Updated in Patient Room with Yes name and ext. # of Manipulative Therapy Specialist Review Status In Process Please Provide Date Initial DC 02/02/22 Assessment Was Performed Next Review Type Continued Stay Review
--- NOTE | 2022-02-02 17:01 | DI.ECHO.S_ITS ---
[facility] +---------+ [facility] +---------+ : : [address] : : : : [id number] : : : : Phone: [phone]+ Echocardiogram Report + + :Name: ALVA HAGEN Study Date: 02/03/2022 Height: 59 in : :[facility] ReadingLocation: Weight: 188 lb : : Gender: Female BSA: 1.8 m2 : :: 1945 Age: 76 yrs BP: 132/65 mmHg: :Reason For Study: ASSESS EF : :Ordering Physician: TRI KOTHARI : :Alfred Flannery Performed By: Xiomy Pendleton : :Referring: TRI KOTHARI D.O. : + + Interpretation Summary Limited study. Left ventricular ejection fraction is 25 +/- 5%. Moderate to severe global hypokinesis of the left ventricle. Moderate mitral regurgitation. Comparison is made with the echocardiogram of 11/22/2021, there has been no significant change. Procedure: A two-dimensional transthoracic echocardiogram with color flow and Doppler was performed in limited views only to assess ejection fraction.. The study quality was technically difficult. Comparison is made with the echocardiogram of 11/22/2021. The patient was in sinus rhythm with heart rates between 83-95 bpm during the exam. Left Ventricle: The left ventricle is mild-moderately dilated. The estimated left ventricular end diastolic volume is 150 ml. Left ventricular ejection fraction is estimated to be 25 +/- 5%. There is moderate to severe global hypokinesis of the left ventricle. Atria: The left atrium is severely dilated. Right atrial size is normal. Mitral Valve: There is mild mitral annular calcification. There is moderate mitral regurgitation. Great Vessels: The IVC is of normal diameter and collapses greater than 50% with a sniff. This suggests a low right atrial pressure of 3 mm Hg. Pericardium/ Pleura There is no pericardial effusion. There is no pleural effusion. MMode/2D Measurements & Calculations LVIDd: 6.1 cm LA A2 area: 23.7 cm2 LVIDs: 5.3 cm LA A4 area: 25.4 cm2 FS: 13.9 % LA length (vol): 5.9 cm EPSS: 2.0 cm LA vol: 86.4 ml IVSd: 0.94 cm LA vol index: 48.1 ml/m2 LVPWd: 1.1 cm LV hampton. diameter/BSA (cm/m^2): 3.4 LV sys. diameter/BSA (cm/m^2): 2.9 RA long axis: 4.3 cm RA area: 13.6 cm2 RA vol: 36.8 ml RA : 20.5 ml/m2 IVC diam: 1.4 cm Electronically signed by: Maia Sanches on Reading Physician:02/03/2022 11:07 AM
[2022-02-02] MEDS: METOPROLOL IR 50 MG TABLET 100 MG PO (21:52)
[2022-02-03] VITALS (23 sets, daily range): BP systolic 108–114; BP diastolic 54–59; PULSE 71–98; RESP 16–36; TEMP 36.3–36.9; O2SAT 92–98
[2022-02-03 05:37] LABS: Add Manual Diff / Slide Review NO; BUN Creatinine Ratio 42.9 (6-22); Basophils Absolute Auto 200 /uL (0-100); Basophils Percent Auto 2.2 % (0-2); Blood Urea Nitrogen 24 mg/dL (7-17); Calcium 8.5 mg/dL (8.4-10.2); Chloride 88 mmol/L (98-107); Eosinophils Absolute Auto 200 /uL (0-450); Eosinophils Percent Auto 3.2 % (2-4); Estimated Glomerular Filt Rate > 60 mL/min (>60); Glucose 191 mg/dL (80-110); HEMOLYSIS < 15 (0-50); Hemoglobin 11.2 g/dL (12.0-16.0); Lymphocytes Absolute Auto 900 /uL (1100-4500); Lymphocytes Percent Auto 12.7 % (25-40); Mean Corpuscular HGB Conc 33.8 % (30-36); Mean Corpuscular Hemoglobin 29.6 PG (26-34); Mean Corpuscular Volume 87.7 fL (80-100); Monocytes Absolute Auto 400 /uL (0-900); Monocytes Percent Auto 6.1 % (3-14); Neutrophils Absolute Auto 5300 /uL (1500-7000); Neutrophils Percent Auto 75.8 % (50-75); Platelet Count 269 X10^3/uL (150-400); Potassium 4.1 mmol/L (3.4-5.1); Red Blood Cell Count 3.77 X10^6/uL (4.0-5.2); Red Cell Distribution Width 14.5 % (11.6-14.8); Sodium 134 mmol/L (137-145); White Blood Cell Count 7.1 X10^3/uL (4.5-11.0)
[2022-02-03 05:46] LABS: Carbon Dioxide 40 mmol/L (22-32)
--- NOTE | 2022-02-03 06:40 | PC.NURSE ---
End of shift note. Care of patient [id number]. Patient AAOX3, sitting up in chair most of the night. O2 Sats 97% on 3L this am, decreased to 2L, O2 Sats 94%. CO2 elevated on am labs, Patient opens her eyes to name this am, is able to state her . Telemetry: NSR 80s.
[2022-02-03] MEDS: FUROSEMIDE 40 MG/4 ML VIAL IV (09:00)
[2022-02-03] MEDS: guaiFENesin ER 600 MG TAB PO (09:01)
[2022-02-03] MEDS: APIXABAN 5 MG TABLET PO (09:01)
[2022-02-03] MEDS: LOSARTAN 25 MG TABLET 12.5 MG PO (09:01)
[2022-02-03] MEDS: SPIRONOLACTONE 25 MG TABLET 12.5 MG PO (09:02)
[2022-02-03] MEDS: METOPROLOL IR 50 MG TABLET 100 MG PO (09:02)
[2022-02-03] MEDS: INSULIN LISPRO 100 UNIT/ML 3ML VIAL SUBCUT ×2 (09:03→12:25)
[2022-02-03] MEDS: INSULIN GLARGINE 100 UNIT/ML 3ML PEN 15 UNIT SUBCUT (09:04)
[2022-02-03] MEDS: ALBUTEROL/IPRATROPIUM 3 ML AMPUL INH (09:34)
--- NOTE | 2022-02-03 10:25 | DIET.CONS2 ---
Dietary Inpatient Consultation Note Admission Date: 02/01/2022 17:24 Pt d/c'd early Thursday morning. Upon chart review, pt's A1c improving, currently 8.1 down from [address] had called PCP office for referral to OP DSME which pt desired, however, upon review, referral from PCP office to DSME not completed. Pt relocating to [place] in Feb for f/u care. Diet: 02/02/22 Breakfast Carbohydrate Consistent Diet Diet Modifications: Carbohydrate level: Large (4 CHO) Nutrition Percent Meal Consumed 75% 02/03/22 09:41 Percent Meal Consumed 50% 02/02/22 17:38 Percent Meal Consumed 100% 02/02/22 12:57 Percent Meal Consumed 50% 02/02/22 09:06 Electronically Signed by: Spring Stanton 02/03/22 10:25 Clinical Dietitian [address] [address]
--- NOTE | 2022-02-03 11:50 | OT.IPNOTE ---
Pt standing in doorway of room when OT entered. Pt fully dressed and ambulating back to chair without difficulty without AD. Discussed pt's current abilities and pt states she is at her baseline of IND. No OT eval performed. Will discharge order.
--- NOTE | 2022-02-03 12:19 | PT-IP ANOTE ---
Received PT orders and reviewed the chart. Met with pt briefly who was dressed and preparing for discharge. Per nursing, she has been mobilizing in her room with and without AD with no need for assist. Pt denies falls and states her mobility is unaffected by her current condition. No acute PT needs were identified and orders were completed.
--- NOTE | 2022-02-03 13:25 | PC.NURSE ---
Discharge instructions and home care handouts reviewed with patient and her friend Jessica, they state understanding and have no further questions or concerns at this time. IV's dc'd intact. Patient states she will be seeing her PCP in about a week for follow up. Patient instructed to call her physician with questions or concerns, or to seek emergent care for emergency. Patient escorted out via wheelchair by BEHAVIORAL HEALTH CASE MANAGER with all her belongings to home with her friend.
--- NOTE | 2022-02-03 13:32 | PM.DS.1 ---
History of Present Illness History of Present Illness Chief complaint: heart is racing/cant catch breath Narrative: 76yo F with PMH of HFrEF of 20-25%, poorly controlled DM2, COPD on 2L baseline O2, and HTN who presents with dyspnea, increased LE swelling and found to be in A-fib RVR. HR of 150's in ED at rest. Responded to IV dilt 10 at first then went right back to 150's so started on dilt drip.? Patient states she 1st noticed worsening dyspnea and palpitations 1 week ago which progressed to the point where she was very winded to do anything.? She has no history of atrial fibrillation but she says her neighbor did so she is familiar with it.? She reports compliance with her cardiac medications.? She saw Dr. Rice foster care social worker in clinic recently.? States she is moving back to [place] on February 23.? She denies chest pain, cough, nausea vomiting, diarrhea, headache or unilateral leg swelling. Discharge Providers Provider Date of admission: 02/01/22 17:24 Discharge Date: 02/03/22 Primary care physician: Cristo Quevedo MD Consults: 02/01/22 17:08 Consult to Dietitian, Adult Urgent Comment: Reason For Exam: diabetes education 02/02/22 15:33 Consult to Occupational Therapy Evaluate & Treat Comment: Physician Instructions: Evaluate and treat Consult to Physical Therapy Evaluate & Treat Comment: Physician Instructions: Evaluate and Treat Discharge provider: Pepe Porter MD Summary Hospital Course Discharge Diagnosis: 1. Acute atrial fibrillation with RVR 2 acute on chronic systolic heart failure 3. COPD 4. Chronic hypoxic respiratory failure 5. Type 2 diabetes, insulin requiring, with suboptimal control 6. Hypertension Hospital Course: Patient was admitted and initially started on diltiazem drip for AFib rate control as well as Eliquis anticoagulation. She had minor bump in troponin but ruled out for acute VA. She was transition to metoprolol and continued on Eliquis. She received IV Lasix diuresis for heart failure exacerbation and was started on oral furosemide upon discharge. Her last echo in October 2021 showed LVEF 20-25%. A limited echo was done and report pending at time of discharge. Her ASA was discontinued as she has no history of CAD, TIA or CVA. Insulin dose was increased to improve diabetes control. Status at Discharge Cognitive/behavioral status at discharge: oriented Functional status at discharge: independent ambulation Overall status at discharge: patient is back to baseline Time Spent with Patient Time spent: Greater than 30 minutes Exam Vital Signs (past 8 hours): - 02/03/22 07:38 02/03/22 07:39 02/03/22 09:34 Temperature 98.4 F 98.4 F Pulse Rate 82 82 98 H Respiratory Rate 22 22 16 Blood Pressure 108/54 L 108/54 L Pulse Oximetry 94 94 92 Oxygen Delivery Method Nasal Cannula Oxygen Flow Rate 2 2 2 02/03/22 08:00 02/03/22 06:00 02/03/22 06:30 Temperature Pulse Rate 76 79 Respiratory Rate 21 25 H Blood Pressure Pulse Oximetry 96 93 Oxygen Delivery Method Nasal Cannula Oxygen Flow Rate 02/03/22 07:00 02/03/22 07:30 02/03/22 08:00 Temperature Pulse Rate 78 82 84 Respiratory Rate 21 22 36 H Blood Pressure Pulse Oximetry 94 93 92 Oxygen Delivery Method Oxygen Flow Rate 02/03/22 08:30 02/03/22 09:00 Temperature Pulse Rate 87 92 H Respiratory Rate 32 H 28 H Blood Pressure Pulse Oximetry 94 92 Oxygen Delivery Method Oxygen Flow Rate Fraction of Inspired Oxygen 28 SaO2/FiO2 Ratio 339 Oxygen Delivery Method Nasal Cannula Oxygen Flow Rate 2 Narrative Exam Narrative: General: Alert and comfortable appearing Lungs: Clear Heart: Irregularly irregular with controlled rate Abdomen: Obese Extremities: Trace LE edema Objective Labs Result Diagrams: 02/03/22 05:15 02/03/22 05:15 Labs: Laboratory Results - last 24 hr 02/03/22 02/03/22 02/03/22 05:15 05:15 05:15 WBC 7.1 RBC 3.77 L Hgb 11.2 L Hct 33.0 L MCV 87.7 MCH 29.6 MCHC 33.8 RDW 14.5 Plt Count 269 Neut % (Auto) 75.8 H Lymph % (Auto) 12.7 L [place] % (Auto) 6.1 Eos % (Auto) 3.2 Baso % (Auto) 2.2 H Neut # (Auto) 5300 Lymph # (Auto) 900 L [place] # (Auto) 400 Eos # (Auto) 200 Baso # (Auto) 200 H Sodium 134 L Potassium 4.1 Chloride 88 L Carbon Dioxide 40 H* BUN 24 H Creatinine 0.56 Estimated GFR > 60 BUN/Creatinine Ratio 42.9 H Glucose 191 H D Calcium 8.5 Magnesium 2.0 PFSH Medical History Bladder cystocele CHF (congestive heart failure) COPD (chronic obstructive pulmonary disease) Diabetes mellitus IDDM (insulin dependent diabetes mellitus) Lichen planus Low left ventricular ejection fraction Vaginal candidiasis Surgical History History of removal of cyst Family History Mother Diabetes mellitus Father MVA (motor vehicle accident) Sister Cancer Sister Alcohol poisoning Sister Tobacco dependence Drinks alcohol Social History household members: none Smoking Status: Former smoker Tobacco: How many years used: 60 quit status: has quit before second hand exposure: Yes alcohol intake: current substance use type: does not use Discharge Plan Discharge Plan Patient Disposition: Home Provider Discharge Comment: You were treated for acute atrial fibrillation and congestive heart failure exacerbation. The metoprolol is to control heart rate and also helps heart failure. The Eliquis is a blood thinner to prevent stroke from atrial fibrillation. Check weight at same time daily and report to provider if weight goes up by more than 2 pounds a day or 4 pounds in a week. We increased Lantus to 15 units twice daily to improve glucose control. Discharge orders & Medications Prescriptions: New Eliquis 5 mg Tablet 5 mg PO BID Qty: 60 0RF metoprolol tartrate 100 mg tablet 100 mg PO BID Qty: 60 0RF furosemide 40 mg tablet 40 mg PO DAILY Qty: 30 0RF Continued (DME) blood-glucose meter Misc See Rx Instructions .Route Qty: 1 1RF Rx Instructions: use to check blood sugar daily (DME) Blood Glucose Test Strip See Rx Instructions .Route Qty: 100 3RF Rx Instructions: use to test blood sugar daily (DME) lancets 25 gauge misc See Rx Instructions .Route Qty: 100 3RF Rx Instructions: use to check sugar daily glipizide 10 mg tablet extended release 24hr 10 mg PO BID Qty: 180 0RF albuterol sulfate [ProAir HFA] 90 mcg/actuation HFA aerosol inhaler 2 puff inhalation Q4-6H PRN (Reason: shortness of breath or wheezing) Qty: 8.5 0RF clobetasol 0.05 % ointment 1 applic topical .COMPLEX Qty: 30 3RF Rx Instructions: 1 applic topically BID x 4 weeks then continue daily (DME) Dexcom G6 Organizational Development Director Misc See Rx Instructions .ROUTE .MEDSUPPLY Qty: 1 0RF Rx Instructions: As directed (DME) Dexcom G6 Transmitter Device See Rx Instructions .ROUTE .MEDSUPPLY Qty: 1 3RF Rx Instructions: As directed (DME) Dexcom G6 Sensor Device See Rx Instructions .ROUTE .MEDSUPPLY Qty: 3 12RF Rx Instructions: As directed metronidazole 500 mg tablet 500 mg PO BID Qty: 180 0RF metformin 850 mg tablet 850 mg PO TID fluconazole [Diflucan] 150 mg tablet 150 mg PO QWEEK spironolactone 25 mg tablet 12.5 mg PO QAM losartan 25 mg tablet 12.5 mg PO QAM Label Comments: TAKE 1/2 TABLET BY MOUTH DAILY guaifenesin [Mucus Relief ER] 600 mg Tablet Extended Release 12hr 600 mg PO BID Qty: 20 0RF Changed insulin glargine [Lantus Solostar U-100 Insulin] 100 unit/mL (3 mL) insulin pen 15 unit SUBCUT BID Qty: 15 0RF Discontinued metoprolol succinate 25 mg tablet extended release 24 hr 12.5 mg PO DAILY aspirin 81 mg Tablet,Delayed Release (Dr/Ec) 81 mg PO DAILY Qty: 30 0RF Follow up/Referrals: Cristo Quevedo MD [Primary Care Provider] - Diet/Activity/Treatments Diet: Carb-consistent/Diabetic and Low-sodium Visit Report/Discharge Packet Instructions: DI for Heart Failure, DI for Atrial Fibrillation, Apixaban Discharge Data Primary Care Provider: Cristo Quevedo Quality VTE Deep Vein Thrombosis/Pulmonary Embolism Present on Admission: Yes
--- NOTE | 2022-02-03 13:32 | CM.DPC ---
DCP Discharge Home Per MD, pt is medically stable to discharge to home today with no identified discharge planning needs. SW called [facility] to inquire about their review to determine if they can take pt's [employer] M[employer] and per Bernie at [facility] they have not finalized their ongoing contract with [employer] at this time and therefore cannot accept referral. [facility] not contracted with [employer]. SW left ms for [facility] to determine if they still have contract although pt declined [facility] as they had referral in November after pt's last admission and did not follow through with starting services and therefore pt not happy with [facility]. Per PT/OT, pt declined eval today as she feels back to baseline and dressed and ready to d/c home and has been independently ambulating in room and friend bedside and ready to provide transport back to [facility] for a couple days before pt moves in with friend until she moves the first part of Feb back to [place]. Plan: Patient to d/c back home via friend POV and no further SW needs at this time. MILTON Mancini
== END 2022-02-03 13:32 | disposition home or self-care (01) | DRG 308 ==
LOC: ED 17:13 → ICU 18:24 → AC 07-24 10:16
PROVIDERS: Admitting Provider Student in an Organized Health Care Education/Training Program; Emergency Provider Emergency Medicine; PCP Pediatrics; Referring Provider Emergency Medicine; Visit Provider Student in an Organized Health Care Education/Training Program
DX: I48.91 Unspecified atrial fibrillation (principal); I50.23 Acute on chronic systolic (congestive) heart failure; I24.8 Other forms of acute ischemic heart disease; J96.11 Chronic respiratory failure with hypoxia; I11.0 Hypertensive heart disease with heart failure; J44.9 Chronic obstructive pulmonary disease, unspecified; E11.65 Type 2 diabetes mellitus with hyperglycemia; Z99.81 Dependence on supplemental oxygen; Z87.891 Personal history of nicotine dependence; Z20.822 Contact with and (suspected) exposure to COVID-19; Z79.4 Long term (current) use of insulin; Z79.84 Long term (current) use of oral hypoglycemic drugs
CPT/HCPCS: 36415; 71045; 80048; 80053; 81001; 82550; 82962; 83036; 83690; 83735; 83880; 84443; 84484; 85025; 85610; 85730; 87635; 87797; 93005; 93010; 93307; 94640; 94762; 96365; 96375; 96376; 99285; 99291; C9803; G0378; J1815; J1940; J3475; Q9957

== ENCOUNTER → 2022-02-14 10:19 | Outpatient (CLI) | payer OTHER, SELFPAY ==
[2022-02-11 08:41] VITALS: BMI 38.0
[2022-02-14 12:41] LABS: BUN Creatinine Ratio 37.1 (6-22); Blood Urea Nitrogen 23 mg/dL (7-17); Calcium 8.7 mg/dL (8.4-10.2); Carbon Dioxide 39 mmol/L (22-32); Chloride 90 mmol/L (98-107); Estimated Glomerular Filt Rate > 60 mL/min (>60); Glucose 272 mg/dL (80-110); HEMOLYSIS < 15 (0-50); Potassium 4.1 mmol/L (3.4-5.1); Sodium 138 mmol/L (137-145)
== END ==
PROVIDERS: PCP Family Medicine; Referring Provider Internal Medicine; Visit Provider Internal Medicine
DX: E11.69 Type 2 diabetes mellitus with other specified complication (principal); E78.2 Mixed hyperlipidemia; E78.5 Hyperlipidemia, unspecified; I10 Essential (primary) hypertension; I48.0 Paroxysmal atrial fibrillation; I50.22 Chronic systolic (congestive) heart failure; J44.9 Chronic obstructive pulmonary disease, unspecified; J96.10 Chronic respiratory failure, unspecified whether with hypoxia or hypercapnia; Z79.01 Long term (current) use of anticoagulants
CPT/HCPCS: 36415; 80048